=== PATIENT | male | born 1955 | race Caucasian/White ===

== ENCOUNTER 2023-02-12 11:37 | Inpatient (IN) ==
[2023-02-12] MEDS ORDERED: PANTOPRAZOLE BOLUS/DRIP 1 EACH IV STA (12:28)
[2023-02-12] MEDS ORDERED: PANTOprazole 80 MG in DEXTROSE 5% 100 ML IV ONE (12:28)
[2023-02-12 12:42] LABS: Basophils # (auto) 0.05 K/uL (0-0.2); Basophils % (auto) 0.5 %; Eosinophils # (auto) 0.01 K/uL (0-0.50); Eosinophils % (auto) 0.1 %; Hematocrit (blood only) 29.2 % (42.0-52.0); Hemoglobin 10.3 g/dl (14.0-18.0); Immature Granulocytes # (auto) 0.03 K/uL (0.01-0.20); Immature Granulocytes % (auto) 0.3 %; Lymphocytes # (auto) 2.28 K/uL (1.2-3.4); Lymphocytes % (auto) 23.2 %; Mean Corpuscular Hemoglobin 32.7 pg (25.0-34.0); Mean Corpuscular Hgb Conc 35.3 g/dL (32.0-36.0); Mean Corpuscular Volume 92.7 fL (80.0-100.0); Monocytes # (auto) 0.67 K/uL (0.11-0.59); Monocytes % (auto) 6.8 %; Neutrophils % (auto) 69.1 %; Platelet Count 268 K/uL (130-400); RDW Coefficient of Variation 12.1 % (11.5-14.5); RDW Standard Deviation 40.8 fL (36.4-46.3); Red Blood Count 3.15 M/uL (4.70-6.10); White Blood Count 9.84 K/ul (4.8-10.8)
--- NOTE | 2023-02-12 12:50 | Emergency Department Note ---
Impression & Plan Acute GI bleeding, Melena, Weakness, Anemia, Fatigue, Near syncope ED Provider Note Provider: Arturo Ramos MD DATE OF SERVICE: 02/12/2023 CHIEF COMPLAINT: Abdominal pain, melena, dizziness and fogginess HISTORY OF PRESENT ILLNESS: Patient is a 67-year-old gentleman history of hyperlipidemia, hypertension, and recent placement of a right leg stent on Plavix presenting here via ambulance from home. Patient evidently last night began develop some head pain and "fogginess ". States he is little bit near syncopal and dizzy. [place] his breathing was off. Developed some abdominal pain overnight and had significant black melanotic stools today. Denies use of Pepto-Bismol or iron recently. Denies a history of GI bleeds to his knowledge. Denies significant heartburn. Denies real nausea currently. Little bit of pain in the neck and upper shoulders earlier but states not really now. Denies headache. States feels very weak particularly tries to sit up. No syncope or falls. PAST MEDICAL HISTORY: As noted above MEDICATIONS: Reviewed medication list SOCIAL HISTORY: Social alcohol PHYSICAL EXAM: GENERAL: alert and oriented in no acute distress on stretcher fatigued in appea dhiraj, pale Head: normocephalic and atraumatic EYES: No injection, discharge or icterus. PERRL NECK: Trachea midline. Supple not meningitic ENT: Mucous membranes pink and moist. LUNGS: Airway patent. No retractions. Breath sounds clear but with some mild tachypnea HEART: Regular rate and rhythm. No chest wall tenderness ABDOMEN: Soft minimal diffuse abdominal tenderness. Slight guarding. SKIN: Acyanotic, warm, dry, slightly pale EXTREMITIES: Without swelling, tenderness or deformity NEUROLOGICAL: No focal deficits. No aphasia. No facial droop or slurred speech. EK bpm normal sinus rhythm without PVC. No acute ST segment elevation with some lateral T wave changes. QTc 418. CONTINUOUS CARDIAC MONITORING: was ordered and showed a heart rate of 80s-100s bpm in normal sinus rhythm to sinus tachycardia Patient's laboratory studies and imaging reviewed. Differential includes Infection, dehydration, metabolic abnormality, hypo/hyperglycemia, electrolyte disturbance, anemia, hypoxia, cardiac sources, intracerebral event, toxicologic, neurologic, as well as other pathologies. 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 Given Protonix given concern for GI bleed with this. Initial hemoglobin returns at 10 with a normal lactate which is reassuring. He is on Plavix. Some diffuse abdominal tenderness will send for CT of the abdomen pelvis. We will complete a CT of the head given his complaint of some pain in the neck and feeling foggy there. Not having other significant focal deficits generally weak and fatigued. Lower suspicion for CVA. [place] he does not have more anemia. No significant electrolyte abnormalities. BUN elevated again consistent with a possible GI bleed. Creatinine normal. No significant evidence of hepatitis or pancreatitis. Given some IV fluid in addition to the Protonix bolus and drip. CT head without acute abnormality per radiology. CT abdomen pelvis per radiolog y without evidence of bowel obstruction or bowel wall thickening. Normal appendix reported with prostamegaly and no hydronephrosis. Patient's labs and findings are reassuring but still he is feeling quite ill. Again pale and fatigued appearing. His melena is concerning again for GI bleed. Given some IV fluid. Discussed with him and his staying for further evaluation of care and monitoring of his GI bleed. DIAGNOSIS: Melena, GI bleed, weakness, near syncope DISPOSITION: Hospitalist will evaluate Patient was agreeable with this plan. Past Med/Surg History Social History Smoking Status: Current every day smoker Hx Alcohol Use: Yes Hx Substance Use: No Beliefs That Will Affect Care: None Current Living Situation: Spouse Feels Safe at Home: Yes Allergies Allergies Allergy/AdvReac Type Severity Reaction Status Date / Time No Known Allergies Allergy Verified 02/12/23 14:58 Home Meds Home Medications Medication Instructions Recorded Confirmed atorvastatin 80 mg tablet 80 mg PO QAM 02/12/23 02/12/23 cilostazol 100 mg tablet 100 mg PO BID 02/12/23 02/12/23 clopidogrel 75 mg tablet 75 mg PO QAM 02/12/23 02/12/23 diltiazem HCl 180 mg 180 mg PO QAM 02/12/23 02/12/23 capsule,extended release 24 hr ezetimibe 10 mg tablet 10 mg PO QAM 02/12/23 02/12/23 lisinopril 20 1 tab PO QAM 02/12/23 02/12/23 mg-hydrochlorothiazide 12.5 mg tablet Results & Data (ED) Vital Signs Vital Signs - 24 hr 02/12/23 11:47 02/12/23 11:47 02/12/23 11:56 Temperature 36.6 C Temperature Source Oral Pulse Rate 80 Pulse Rate [Right Apical] 80 Pulse Rate from SpO2 Sensor Respiratory Rate 18 18 Respiratory Effort / Characteristics Non-Labored Spontaneous Non-Labored Spontaneous Respiratory Depth Normal Normal Respiratory Pattern Regular Regular Blood Pressure 104/64 Blood Pressure [Right Arm] 104/64 Blood Pressure Mean 77 Blood Pressure Mean [Right Arm] 77 Pulse Oximetry 100 100 100 Oxygen Delivery Method Room Air Room Air Room Air Sepsis Recent Fever Within 48 Hours No Sepsis New/Unexplained Change in Mental Status No Sepsis Action Taken by Nursing No Action Required 02/12/23 12:22 02/12/23 12:00 02/12/23 13:00 Temperature Temperature Source Pulse Rate 107 H 84 96 H Pulse Rate [Right Apical] Pulse Rate from SpO2 Sensor 96 H Respiratory Rate 22 22 Respiratory Effort / Characteristics Respiratory Depth Respiratory Pattern Blood Pressure 103/65 106/61 Blood Pressure [Right Arm] Blood Pressure Mean 77 76 Blood Pressure Mean [Right Arm] Pulse Oximetry 100 100 Oxygen Delivery Method Room Air Room Air Sepsis Recent Fever Within 48 Hours Sepsis New/Unexplained Change in Mental Status Sepsis Action Taken by Nursing 02/12/23 14:30 02/12/23 15:29 Temperature Temperature Source Pulse Rate 91 H 100 H Pulse Rate [Right Apical] Pulse Rate from SpO2 Sensor Respiratory Rate 20 21 Respiratory Effort / Characteristics Respiratory Depth Respiratory Pattern Blood Pressure 126/74 111/74 Blood Pressure [Right Arm] Blood Pressure Mean 91 86 Blood Pressure Mean [Right Arm] Pulse Oximetry 100 100 Oxygen Delivery Method Room Air Sepsis Recent Fever Within 48 Hours Sepsis New/Unexplained Change in Mental Status Sepsis Action Taken by Nursing Laboratory Data 02/12/23 12:03 02/12/23 12:03 Lab Results 02/12/23 02/12/23 02/12/23 Range/Units 12:03 12:03 12:03 WBC 9.84 (4.8-10.8) K/ul RBC 3.15 L (4.70-6.10) M/uL Hgb 10.3 L (14.0-18.0) g/dl Hct 29.2 L (42.0-52.0) % MCV 92.7 (80.0-100.0) fL MCH 32.7 (25.0-34.0) pg MCHC 35.3 (32.0-36.0) g/dL RDW Std Deviation 40.8 (36.4-46.3) fL RDW Coeff of Maximo 12.1 (11.5-14.5) % Plt Count 268 (130-400) K/uL MPV 10.0 (9.4-12.4) fL Immature Gran % (Auto) 0.3 % Neut % (Auto) 69.1 % Lymph % (Auto) 23.2 % [place] % (Auto) 6.8 % Eos % (Auto) 0.1 % Baso % (Auto) 0.5 % Neut # (Auto) 6.80 H (1.40-6.50) K/uL Lymph # (Auto) 2.28 (1.2-3.4) K/uL [place] # (Auto) 0.67 H (0.11-0.59) K/uL Eos # (Auto) 0.01 (0-0.50) K/uL Baso # (Auto) 0.05 (0-0.2) K/uL Immature Gran # (Auto) 0.03 (0.01-0.20) K/uL PT 11.4 (9.0-12.0) Seconds INR 1.0 (0.9-1.1) Sodium 136 (136-145) mmol/L Potassium 4.3 (3.5-5.1) mmol/L Chloride 107 (98-107) mmol/L Carbon Dioxide 23 (21-32) mmol/L Anion Gap 6 (3-11) BUN 55 H (6-23) mg/dl Creatinine 0.73 (0.6-1.4) mg/dl Est Cr Clr Drug Dosing 104.6 ml/min Est GFR ( Amer) 111.2 ml/min Est GFR (Non-Af Amer) 96.0 ml/min BUN/Creatinine Ratio 75.3 H (10-20) Glucose 109 H (70-99(Fasting)) mg/dl Lactate (0.4-2.0) mmol/L Calcium 9.2 (8.6-10.3) mg/dl Total Bilirubin 0.4 (0.2-1.0) mg/dl AST 12 L (13-39) U/L ALT 15 (7-52) U/L Alkaline Phosphatase 73 (34-104) U/L Troponin I High Sens 8.2 (0-20) pg/ml Total Protein 5.8 L (6.0-8.3) gm/dl Albumin 3.9 (3.4-5.0) gm/dl Globulin 1.9 L (2.5-4.0) gm/dl Albumin/Globulin Ratio 2.1 H (0.9-2) Lipase 27 (11-82) U/L Urine Color Urine Appearance (Clear) Urine pH (4.5-7.5) Ur Specific [place] (1.000-1.030) Urine Protein (Negative) Urine Glucose (UA) (Negative) Urine Ketones (Negative) Urine Blood (Negative) Urine Nitrite (Negative) Urine Bilirubin (Negative) Urine Urobilinogen (Negative) Ur Leukocyte Esterase (Negative) POC Stool Occult Blood (Negative) SARS-CoV-2, RNA, NAAT (NEGATIVE) Blood Type Antibody Screen 02/12/23 02/12/23 02/12/23 Range/Units 12:03 12:03 12:07 WBC (4.8-10.8) K/ul RBC (4.70-6.10) M/uL Hgb (14.0-18.0) g/dl Hct (42.0-52.0) % MCV (80.0-100.0) fL MCH (25.0-34.0) pg MCHC (32.0-36.0) g/dL RDW Std Deviation (36.4-46.3) fL RDW Coeff of Maximo (11.5-14.5) % Plt Count (130-400) K/uL MPV (9.4-12.4) fL Immature Gran % (Auto) % Neut % (Auto) % Lymph % (Auto) % [place] % (Auto) % Eos % (Auto) % Baso % (Auto) % Neut # (Auto) (1.40-6.50) K/uL Lymph # (Auto) (1.2-3.4) K/uL [place] # (Auto) (0.11-0.59) K/uL Eos # (Auto) (0-0.50) K/uL Baso # (Auto) (0-0.2) K/uL Immature Gran # (Auto) (0.01-0.20) K/uL PT (9.0-12.0) Seconds INR (0.9-1.1) Sodium (136-145) mmol/L Potassium (3.5-5.1) mmol/L Chloride (98-107) mmol/L Carbon Dioxide (21-32) mmol/L Anion Gap (3-11) BUN (6-23) mg/dl Creatinine (0.6-1.4) mg/dl Est Cr Clr Drug Dosing ml/min Est GFR ( Amer) ml/min Est GFR (Non-Af Amer) ml/min BUN/Creatinine Ratio (10-20) Glucose (70-99(Fasting)) mg/dl Lactate 1.5 (0.4-2.0) mmol/L Calcium (8.6-10.3) mg/dl Total Bilirubin (0.2-1.0) mg/dl AST (13-39) U/L ALT (7-52) U/L Alkaline Phosphatase (34-104) U/L Troponin I High Sens (0-20) pg/ml Total Protein (6.0-8.3) gm/dl Albumin (3.4-5.0) gm/dl Globulin (2.5-4.0) gm/dl Albumin/Globulin Ratio (0.9-2) Lipase (11-82) U/L Urine Color Urine Appearance (Clear) Urine pH (4.5-7.5) Ur Specific [place] (1.000-1.030) Urine Protein (Negative) Urine Glucose (UA) (Negative) Urine Ketones (Negative) Urine Blood (Negative) Urine Nitrite (Negative) Urine Bilirubin (Negative) Urine Urobilinogen (Negative) Ur Leukocyte Esterase (Negative) POC Stool Occult Blood (Negative) SARS-CoV-2, RNA, NAAT NEGATIVE (NEGATIVE) Blood Type O Positive Antibody Screen NEGATIVE 02/12/23 02/12/23 Range/Units 12:28 15:29 WBC (4.8-10.8) K/ul RBC (4.70-6.10) M/uL Hgb (14.0-18.0) g/dl Hct (42.0-52.0) % MCV (80.0-100.0) fL MCH (25.0-34.0) pg MCHC (32.0-36.0) g/dL RDW Std Deviation (36.4-46.3) fL RDW Coeff of Maximo (11.5-14.5) % Plt Count (130-400) K/uL MPV (9.4-12.4) fL Immature Gran % (Auto) % Neut % (Auto) % Lymph % (Auto) % [place] % (Auto) % Eos % (Auto) % Baso % (Auto) % Neut # (Auto) (1.40-6.50) K/uL Lymph # (Auto) (1.2-3.4) K/uL [place] # (Auto) (0.11-0.59) K/uL Eos # (Auto) (0-0.50) K/uL Baso # (Auto) (0-0.2) K/uL Immature Gran # (Auto) (0.01-0.20) K/uL PT (9.0-12.0) Seconds INR (0.9-1.1) Sodium (136-145) mmol/L Potassium (3.5-5.1) mmol/L Chloride (98-107) mmol/L Carbon Dioxide (21-32) mmol/L Anion Gap (3-11) BUN (6-23) mg/dl Creatinine (0.6-1.4) mg/dl Est Cr Clr Drug Dosing ml/min Est GFR ( Amer) ml/min Est GFR (Non-Af Amer) ml/min BUN/Creatinine Ratio (10-20) Glucose (70-99(Fasting)) mg/dl Lactate (0.4-2.0) mmol/L Calcium (8.6-10.3) mg/dl Total Bilirubin (0.2-1.0) mg/dl AST (13-39) U/L ALT (7-52) U/L Alkaline Phosphatase (34-104) U/L Troponin I High Sens (0-20) pg/ml Total Protein (6.0-8.3) gm/dl Albumin (3.4-5.0) gm/dl Globulin (2.5-4.0) gm/dl Albumin/Globulin Ratio (0.9-2) Lipase (11-82) U/L Urine Color Yellow Urine Appearance Clear (Clear) Urine pH 5.5 (4.5-7.5) Ur Specific [place] > 1.045 H (1.000-1.030) Urine Protein Negative (Negative) Urine Glucose (UA) Negative (Negative) Urine Ketones Negative (Negative) Urine Blood Negative (Negative) Urine Nitrite Negative (Negative) Urine Bilirubin Negative (Negative) Urine Urobilinogen Negative (Negative) Ur Leukocyte Esterase Negative (Negative) POC Stool Occult Blood Positive A (Negative) SARS-CoV-2, RNA, NAAT (NEGATIVE) Blood Type Antibody Screen Administered Medications Pantoprazole Sodium 40 mg/ (Dextrose) 100 mls @ 20 mls/hr IV Q5H MULU Stop: 03/14/23 12:44 Last Admin: 02/12/23 13:01 Dose: 8 mg/hr, 20 mls/hr Documented By: DINAH Discontinued Medications Pantoprazole Sodium 80 mg/ (Dextrose) 120 mls @ 400 mls/hr IV NOW ONE Stop: 02/12/23 12:45 Last Infusion: 02/12/23 13:11 Dose: 0 mls/hr Documented By: Admin: 02/12/23 12:51 Dose: 400 mls/hr Documented By: DINAH Sodium Chloride (Nss 1000ml) 1,000 mls @ 999 mls/hr IV .Q1H1M ONE Stop: 02/12/23 15:04 Last Infusion: 02/12/23 15:26 Dose: 0 mls/hr Documented By: Admin: 02/12/23 14:34 Dose: 999 mls/hr Documented By: DINAH Ioversol (Optiray 320 100ml) 88 ml IV ONCE ONE Stop: 02/12/23 14:06 Last Admin: 02/12/23 13:51 Dose: 88 ml Documented By: GABRIELE Imaging Data Radiologist's Impression: Abdomen/Pelvis CT 02/12/23 12:[address] WITH IV CONTRAST CT DOSE: 1694.03 mGy.cm HISTORY: Nausea. Diarrhea. diffuse pain, melena TECHNIQUE: Multiaxial CT images of the abdomen and pelvis were performed following the use of intravenous contrast. A dose lowering technique was utilized adhering to the principles of ALARA. COMPARISON STUDY: Outside hospital chest CT 09/02/2016. FINDINGS: A few subcentimeter nodules at the lung bases remain stable and are therefore considered to be benign given the greater than 2 year stability. No pneumoperitoneum. No pneumatosis. L4-5 posterior decompression and fusion with pedicle screws and rods. Severe coronary artery calcifications are noted. The g allbladder, spleen, adrenal glands, and pancreas are unremarkable. There is a 1.2 cm cyst within the left hepatic dome. There is a 7 mm hypodense lesion within the right kidney which is technically too small to catheterize but favors a cyst. The left kidney enhances normally. No hydronephrosis. The main portal vein is patent. Moderate to severe calcified plaque within the normal caliber abdominal aorta. No retroperitoneal lymphadenopathy. No pelvic lymphadenopathy or pelvic free fluid. The bladder is unremarkable. The prostate gland is mildly enlarged. No bowel wall thickening or obstruction. Normal appendix. IMPRESSION: 1. No bowel wall thickening or obstruction. 2. Normal appendix. 3. No hydronephrosis. 4. Prostatomegaly. 5. Additional findings as described above. ACT 112: Negative or not required by law. Electronically signed by: Steve Gloria M.D. 02/12/2023 2:[address] 02/12/23 12:28 CT head/brain wo con CLINICAL HISTORY: 67 years-old Male with weak/dizzy, headache. Acute headache with dizziness and weakness TECHNIQUE: Multiple axial CT images of the head were obtained without contrast. A dose lowering technique was utilized adhering to the principles of ALARA. COMPARISON: None. FINDINGS: No acute intracranial hemorrhage, midline shift, intracranial mass, hydrocephalus, territorial ischemia or abnormal extra-axial collection. Involutional changes with chronic microvascular ischemic disease. Cerebral vascular calcifications. The calvarium is intact. The paranasal sinuses, mastoid air cells, and middle ear cavities are clear. IMPRESSION: No acute intracranial abnormality. ACT 112: Negative or not required by law. The above report was generated using voice recognition software. It may contain grammatical, syntax or spelling errors. Electronically signed by: Nav Grossman M.D. 02/12/2023 2:09 PM Chest X-Ray 02/12/23 14:04 XR chest 1V portable HISTORY: Shortness of breath. COMPARISON: Chest 08/24/2016. FINDINGS: No pneumothorax. No pleural effusions. There slight elevation of the right hemidiaphragm, unchanged. No focal lung consolidations to suggest a pneumonia. No evidence for pulmonary edema. Cervical spinal fusion hardware is noted. The cardiac silhouette is top normal in size. There are mild degenerative changes within the shoulders. IMPRESSION: No acute process. ACT 112: Negative or not required by law. Electronically signed by: Steve Gloria M.D. 02/12/2023 3:19 PM Discharge Plan Visit Data Chief Complaint: Abdominal Pain Stated Complaint: DIZZINESS, AB PAIN, DIARRHEA ED Provider: Arturo Ramos Discharge Problem: Acute GI bleeding, Melena, Weakness, Anemia, Fatigue, Near syncope Patient Disposition: Being Evaluated by Hospitalist Forms Stand Alone Forms: [facility] Prescriptions Prescriptions: No Action cilostazol 100 mg tablet 100 mg PO BID atorvastatin 80 mg tablet 80 mg PO QAM lisinopril-hydrochlorothiazide 20-12.5 mg tablet 1 tab PO QAM diltiazem HCl 180 mg capsule,extended release 24hr 180 mg PO QAM clopidogrel 75 mg tablet 75 mg PO QAM ezetimibe 10 mg tablet 10 mg PO QAM Referrals Referrals: Anastacio Shabazz DO [Primary Care Provider] -
[2023-02-12 12:52] LABS: Albumin Level 3.9 gm/dl (3.4-5.0); Bilirubin,Total 0.4 mg/dl (0.2-1.0); Calcium 9.2 mg/dl (8.6-10.3); Potassium 4.3 mmol/L (3.5-5.1)
[2023-02-12 12:58] LABS: Albumin Globulin Ratio 2.1 (0.9-2); BUN Creatinine Ratio 75.3 (10-20); Creatinine Clr Calc Pharmacy 104.6 ml/min; Est GFR (African American) 111.2 ml/min; Globulin 1.9 gm/dl (2.5-4.0); Prothrombin Time 11.4 Seconds (9.0-12.0); Total Protein 5.8 gm/dl (6.0-8.3)
[2023-02-12] MEDS: PANTOprazole 40 MG in DEXTROSE 5% 100 ML IV SCH ×3 (13:01→19:28)
[2023-02-12 13:03] LABS: Troponin I High Sensitivity 8.2 pg/ml (0-20)
[2023-02-12] MEDS ORDERED: SODIUM CHLORIDE 0.9% 1000ML 1,000 ML IV ONE (14:04)
[2023-02-12] MEDS ORDERED: OPTIRAY 320 100ml IV ONE (14:05)
--- NOTE | 2023-02-12 14:11 | CT Scan Report ---
CT head/brain wo con CLINICAL HISTORY: 67 years-old Male with weak/dizzy, headache. Acute headache with dizziness and wea kness TECHNIQUE: Multiple axial CT images of the head were obtained without contrast. A dose lowering tech nique was utilized adhering to the principles of ALARA. COMPARISON: None. FINDINGS: No acute intracranial hemorrhage, midline shift, intracranial mass, hydrocephalus, territorial ischem ia or abnormal extra-axial collection. Involutional changes with chronic microvascular ischemic disea se. Cerebral vascular calcifications. The calvarium is intact. The paranasal sinuses, mastoid air cells, and middle ear cavities are clear . IMPRESSION: No acute intracranial abnormality. ACT 112: Negative or not required by law. The above report was generated using voice recognition software. It may contain grammatical, syntax o r spelling errors. Electronically signed by: Nav Grossman M.D. 02/12/2023 2:09 PM
--- NOTE | 2023-02-12 14:22 | CT Scan Report ---
ABDOMEN AND PELVIS CT WITH IV CONTRAST CT DOSE: 1694.03 mGy.cm HISTORY: Nausea. Diarrhea. diffuse pain, melena TECHNIQUE: Multiaxial CT images of the abdomen and pelvis were performed following the use of intrave nous contrast. A dose lowering technique was utilized adhering to the principles of ALARA. COMPARISON STUDY: Outside hospital chest CT 09/02/2016. FINDINGS: A few subcentimeter nodules at the lung bases remain stable and are therefore considered to be benign given the greater than 2 year stability. No pneumoperitoneum. No pneumatosis. L4-5 posteri or decompression and fusion with pedicle screws and rods. Severe coronary artery calcifications are n oted. The gallbladder, spleen, adrenal glands, and pancreas are unremarkable. There is a 1.2 cm cyst within the left hepatic dome. There is a 7 mm hypodense lesion within the right kidney which is techn ically too small to catheterize but favors a cyst. The left kidney enhances normally. No hydronephros is. The main portal vein is patent. Moderate to severe calcified plaque within the normal caliber abd ominal aorta. No retroperitoneal lymphadenopathy. No pelvic lymphadenopathy or pelvic free fluid. The bladder is unremarkable. The prostate gland is mildly enlarged. No bowel wall thickening or obstruct ion. Normal appendix. IMPRESSION: 1. No bowel wall thickening or obstruction. 2. Normal appendix. 3. No hydronephrosis. 4. Prostatomegaly. 5. Additional findings as described above. ACT 112: Negative or not required by law. Electronically signed by: Steve Gloria M.D. 02/12/2023 2:21 PM
--- NOTE | 2023-02-12 15:20 | XRay Report ---
XR chest 1V portable HISTORY: Shortness of breath. COMPARISON: Chest 08/24/2016. FINDINGS: No pneumothorax. No pleural effusions. There slight elevation of the right hemidiaphragm, u nchanged. No focal lung consolidations to suggest a pneumonia. No evidence for pulmonary edema. Cervi [place] spinal fusion hardware is noted. The cardiac silhouette is top normal in size. There are mild deg enerative changes within the shoulders. IMPRESSION: No acute process. ACT 112: Negative or not required by law. Electronically signed by: Steve Gloria M.D. 02/12/2023 3:19 PM
--- NOTE | 2023-02-12 15:37 | Electrocardiogram Report ---
Test Reason : Blood Pressure : / mmHG Vent. Rate : 081 BPM Atrial Rate : 081 BPM P-R Int : 196 ms QRS Dur : 084 ms QT Int : 360 ms P-R-T Axes : 077 040 110 degrees QTc Int : 418 ms Normal sinus rhythm T wave abnormality, consider lateral ischemia Abnormal ECG When compared with ECG of 23-OCT-2015 11:05, Inverted T waves have replaced nonspecific T wave abnormality in Lateral leads Confirmed by [place] ([id number]) on 02/12/2023 3:37:25 PM Referred By: REFERRED SELF Confirmed By:Femi Javier
[2023-02-12 15:46] LABS: Appearance Urine Clear (Clear); Bilirubin Urine Negative (Negative); Blood Urine Negative (Negative); Color Urine Yellow; Glucose Urine UA Negative (Negative); Ketones Urine Negative (Negative); Leukocyte Esterase Urine Negative (Negative); Nitrite Urine Negative (Negative); Protein Urine Negative (Negative); Specific Gravity Urine > 1.045 (1.000-1.030); Urobilinogen Urine Negative (Negative); pH Urine 5.5 (4.5-7.5)
--- NOTE | 2023-02-12 16:02 | History & Physical Report ---
Date of Service February 12, 2023 Assessment & Plan (1) GI bleed: Plan: Patient is 67 y/o M with PMH CAD, PVD s/p stent RLE, HTN, dyslipidemia, COPD, tobacco use presented to ER with c/o melena today, exertional shortness of breath, dizziness x1 day. In ER afebrile, P: 80-100, BP 103/65, 100% on room air. H/H: 10.3/, BUN: 55. Hgb was 15 and 11/18/2020 In ER started on IV PPI No further bowel movements during ER course Upper GI bleed, suspect possible gastric ulcer Continue IV PPI Clears for now N.p.o. midnight Type and cross and hold. Monitor H&H. Transfuse PRBC if needed Blood consent was obtained from the patient as delegated by Dr. Camacho. Risks and benefits were explained. All questions were answered, and the patient was offered the opportunity to discuss with attending physician and declined. Hold aspirin, Plavix GI consult CBC, BMP in a.m. (2) Peripheral vascular disease: Plan: 01/13/23:Fem/pop artery revascularization with stent and angioplasty. Hold aspirin, Plavix Continue Pletal, atorvastatin (3) HTN (hypertension): Plan: Hold lisinopril, HCTZ, diltiazem with suspected current GI bleed and current SBP's in the low 100s (4) Dyslipidemia: Plan: Continue atorvastatin, Zetia (5) COPD (chronic obstructive pulmonary disease): Plan: Not on medication No acute exacerbation CXR: No acute infiltrate (6) Tobacco use: Plan: Smoking cessation encouraged Nicotine patch DVT Prophylaxis SCDs Full ode as per discussion with pt Follows with Dr Shabazz for routine care Pt was seen and care coordinated with Dr Camacho. See addendum I spent a total of 80 minutes reviewing notes, outpatient records, labs, medication, coordinating, documenting and providing care for this patient excluding time spent in the performance of separately billed services. History of Present Illness Chief Complaint: Melena Primary Care Provider: Anastacio Shabazz DO Patient is 67 y/o M with PMH CAD, PVD s/p stent RLE, HTN, dyslipidemia, COPD, tobacco use presented to ER with c/o melena today. Patient states yesterday was having lightheadedness, worse with standing. Also experiencing exertional SOB for the past day. Denies syncope. Patient states this morning had several episodes of loose black stools. Also having epigastric abdominal discomfort. Patient states has been having intermittent epigastric discomfort however seems worse the past 1 to 2 days. He states that he uses 800mg ibuprofen 4 times a week. Is also on aspirin 81mg, Plavix, Pletal. Drinks 2 beers once week. Reports has been under a lot of stress recently. History 01/13/23: Fem/pop artery revascularization with stent and angioplasty. Denies fever/chills, diaphoresis, N/V, hematochezia, OLMOS, vision changes, chest pain, orthopnea, palpitations, cough, sore throat, rhinorrhea, paresthesias, extremity weakness, extremity edema, rashes, urinary symptoms. Allergies Allergy/AdvReac Type Severity Reaction Status Date / Time No Known Allergies Allergy Verified 02/12/23 14:58 Home Medications Medication Instructions Recorded Confirmed Type aspirin 81 mg tablet 81 mg PO DAILY 02/12/23 02/12/23 History atorvastatin 80 mg tablet 80 mg PO QAM 02/12/23 02/12/23 History cilostazol 100 mg tablet 100 mg PO BID 02/12/23 02/12/23 History clopidogrel 75 mg tablet 75 mg PO QAM 02/12/23 02/12/23 History diltiazem HCl 180 mg 180 mg PO QAM 02/12/23 02/12/23 History capsule,extended release 24 hr ezetimibe 10 mg tablet 10 mg PO QAM 02/12/23 02/12/23 History lisinopril 20 1 tab PO COUNT INCLUDES THE [facility] 02/12/23 02/12/23 History mg-hydrochlorothiazide 12.5 mg tablet Past Med/Surg History Medical History COPD (chronic obstructive pulmonary disease) Dyslipidemia HTN (hypertension) Peripheral vascular disease Tobacco use Surgical History History of revascularization procedure of lower extremity 01/13/2023 fem/pop artery revascularization with stent angioplasty. By Dr. Miki Garcia at [facility] [place] History of spinal fusion Family History Other Heart disease Stroke Social History (Reviewed 02/12/23 @ 20:01 by MAGGY Garcia Smoking Status: Current every day smoker Cigarettes Per Day: 20; Hx Alcohol Use: Yes Hx Substance Use: No Preferred Language: Irish Radiographer Cardiac Catheterization Required: No Beliefs That Will Affect Care: None Current Living Situation: Spouse and Family Current Living Situation Comment: and daughter Feels Safe at Home: No Safety Concerns: Feels Safe At This Time Assistive Devices: Glasses Review of Systems Review of Systems: All systems reviewed & are unremarkable except as noted in HPI & below Physical Exam Physical Exam: General: no distress, WDWN Head: normocephalic, atraumatic Eyes: conjunctiva non-injected, anicteric ENT: normal inspection external ears, nose, mucous membranes moist Neck: supple, trachea midline Lungs: clear, no respiratory distress, no wheezing/rhonchi/rales CV: RRR, no murmur, no pretibial edema Abd: normal BS, soft, slight epigastric tenderness to palpation without guarding Ext: no cyanosis, no calf tenderness Neuro: A&O x 3, no focal deficits noted, normal affect Skin: pale, warm, dry Results & Data Results & Data Vital Signs (Past 12 Hours) Vital Signs Temp Pulse Pulse Resp BP BP Pulse Ox 02/12/23 15:29 100 H 21 111/74 100 02/12/23 14:30 91 H 20 126/74 100 02/12/23 13:00 96 H 22 106/61 100 02/12/23 12:00 84 22 103/65 100 02/12/23 12:22 107 H 02/12/23 11:56 100 02/12/23 11:47 80 18 104/64 100 02/12/23 11:47 36.6 C 80 18 104/64 100 O2 Del Method 02/12/23 15:29 Room Air 02/12/23 14:30 02/12/23 13:00 Room Air 02/12/23 12:00 Room Air 02/12/23 12:22 02/12/23 11:56 Room Air 02/12/23 11:47 Room Air 02/12/23 11:47 Room Air Laboratory Results Short CBC 02/12/23 02/12/23 Range/Units 12:03 19:12 WBC 9.84 (4.8-10.8) K/ul Hgb 10.3 L 8.6 L (14.0-18.0) g/dl Hct 29.2 L 24.4 L (42.0-52.0) % Plt Count 268 (130-400) K/uL BMP 02/12/23 12:03 Sodium 136 Potassium 4.3 Chloride 107 Carbon Dioxide 23 BUN 55 H Creatinine 0.73 Glucose 109 H Calcium 9.2 Liver Function 02/12/23 Range/Units 12:03 Total Bilirubin 0.4 (0.2-1.0) mg/dl AST 12 L (13-39) U/L ALT 15 (7-52) U/L Alkaline Phosphatase 73 (34-104) U/L Albumin 3.9 (3.4-5.0) gm/dl Urine 02/12/23 Range/Units 15:29 Urine Color Yellow Urine Appearance Clear (Clear) Urine pH 5.5 (4.5-7.5) Ur Specific [place] > 1.045 H (1.000-1.030) Urine Protein Negative (Negative) Urine Glucose (UA) Negative (Negative) Diagnostic Findings Abdomen/Pelvis CT 02/12/23 12:[address] WITH IV CONTRAST CT DOSE: 1694.03 mGy.cm HISTORY: Nausea. Diarrhea. diffuse pain, melena TECHNIQUE: Multiaxial CT images of the abdomen and pelvis were performed following the use of intravenous contrast. A dose lowering technique was utilized adhering to the principles of ALARA. COMPARISON STUDY: Outside hospital chest CT 09/02/2016. FINDINGS: A few subcentimeter nodules at the lung bases remain stable and are therefore considered to be benign given the greater than 2 year stability. No pneumoperitoneum. No pneumatosis. L4-5 posterior decompression and fusion with pedicle screws and rods. Severe coronary artery calcifications are noted. The gallbladder, spleen, adrenal glands, and pancreas are unremarkable. There is a 1.2 cm cyst within the left hepatic dome. There is a 7 mm hypodense lesion within the right kidney which is technically too small to catheterize but favors a cyst. The left kidney enhances normally. No hydronephrosis. The main portal vein is patent. Moderate to severe calcified plaque within the normal caliber abdominal aorta. No retroperitoneal lymphadenopathy. No pelvic lymphadenopathy or pelvic free fluid. The bladder is unremarkable. The prostate gland is mildly enlarged. No bowel wall thickening or obstruction. Normal appendix. IMPRESSION: 1. No bowel wall thickening or obstruction. 2. Normal appendix. 3. No hydronephrosis. 4. Prostatomegaly. 5. Additional findings as described above. ACT 112: Negative or not required by law. Electronically signed by: Steve Gloria M.D. 02/12/2023 2:[address] 02/12/23 12:28 CT head/brain wo con CLINICAL HISTORY: 67 years-old Male with weak/dizzy, headache. Acute headache with dizziness and weakness TECHNIQUE: Multiple axial CT images of the head were obtained without contrast. A dose lowering technique was utilized adhering to the principles of ALARA. COMPARISON: None. FINDINGS: No acute intracranial hemorrhage, midline shift, intracranial mass, hydrocephalus, territorial ischemia or abnormal extra-axial collection. Involutional changes with chronic microvascular ischemic disease. Cerebral vascular calcifications. The calvarium is intact. The paranasal sinuses, mastoid air cells, and middle ear cavities are clear. IMPRESSION: No acute intracranial abnormality. ACT 112: Negative or not required by law. The above report was generated using voice recognition software. It may contain grammatical, syntax or spelling errors. Electronically signed by: Nav Grossman M.D. 02/12/2023 2:09 PM Chest X-Ray 02/12/23 14:04 XR chest 1V portable HISTORY: Shortness of breath. COMPARISON: Chest 08/24/2016. FINDINGS: No pneumothorax. No pleural effusions. There slight elevation of the right hemidiaphragm, unchanged. No focal lung consolidations to suggest a pneumonia. No evidence for pulmonary edema. Cervical spinal fusion hardware is noted. The cardiac silhouette is top normal in size. There are mild degenerative changes within the shoulders. IMPRESSION: No acute process. ACT 112: Negative or not required by law. Electronically signed by: Steve Gloria M.D. 02/12/2023 3:19 PM Supervising Physician Co-Signing Physician Notes Patient seen and examined independently. Discussed with above provider. Patient is 67-year-old male with history of peripheral vascular disease with a stent in right lower extremity presents with melena. Taking aspirin, Plavix and as needed ibuprofen. Started on PPI drip. Currently holding aspirin and Plavix. Resume after okay with GI. N.p.o. from midnight for possible endoscopy in a.m. Hold antihypertensives.
[2023-02-12] MEDS ORDERED: ONDANSETRON INJ 2 MG/ML 2 ML VIAL IV PRN (18:51)
[2023-02-12] MEDS ORDERED: SODIUM CHLORIDE 0.9% 1000ML 1,000 ML IV SCH (18:51)
[2023-02-12] MEDS ORDERED: ACETAMINOPHEN 325 MG TAB PO PRN (18:51)
[2023-02-12] MEDS ORDERED: SODIUM CHLORIDE 0.9% 250 ML IV PRN (18:51)
[2023-02-12 19:33] LABS: Hematocrit (blood only) 24.4 % (42.0-52.0); Hemoglobin 8.6 g/dl (14.0-18.0)
[2023-02-12] MEDS ORDERED: MoRPHine SULFATE 2 MG/ML CARP IV PRN (19:52)
[2023-02-12] MEDS: NICOTINE 21 MG/24 HR TDSY TD SCH (20:47)
[2023-02-12] MEDS ORDERED: cilostazoL 100 MG TAB PO SCH (21:00)
[2023-02-12 23:17] LABS: Hematocrit (blood only) 22.9 % (42.0-52.0); Hemoglobin 8.1 g/dl (14.0-18.0)
[2023-02-13] MEDS: PANTOprazole 40 MG in DEXTROSE 5% 100 ML IV SCH ×5 (00:05→20:43)
[2023-02-13 08:26] LABS: Hematocrit (blood only) 21.8 % (42.0-52.0); Hemoglobin 7.7 g/dl (14.0-18.0); Mean Corpuscular Hemoglobin 32.6 pg (25.0-34.0); Mean Corpuscular Hgb Conc 35.3 g/dL (32.0-36.0); Mean Corpuscular Volume 92.4 fL (80.0-100.0); Platelet Count 206 K/uL (130-400); RDW Coefficient of Variation 12.2 % (11.5-14.5); RDW Standard Deviation 40.9 fL (36.4-46.3); Red Blood Count 2.36 M/uL (4.70-6.10); White Blood Count 6.54 K/ul (4.8-10.8)
[2023-02-13 08:44] LABS: BUN Creatinine Ratio 44.8 (10-20); Creatinine Clr Calc Pharmacy 131.6 ml/min; Est GFR (African American) 122.3 ml/min; Est GFR (Non-African American) 105.5 ml/min
[2023-02-13] MEDS: NICOTINE 21 MG/24 HR TDSY TD SCH (09:23)
[2023-02-13] MEDS: EZETIMIBE 10 MG TABLET PO SCH (09:24)
[2023-02-13] MEDS: ATORVASTATIN 40 MG TAB PO SCH (09:24)
[2023-02-13] MEDS ORDERED: SODIUM CHLORIDE 0.9% 250 ML IV PRN (12:09)
--- NOTE | 2023-02-13 12:16 | Hospitalist Progress Note ---
Date of Service February 13, 2023 Assessment & Plan (1) Acute upper GI bleed: Plan: Patient is 67 y/o M with PMH CAD, PVD s/p stent RLE, HTN, dyslipidemia, COPD, tobacco use presented to ER with c/o melena today, exertional shortness of breath, dizziness x1 day. Suspected UGI bleed. In ER afebrile, P: 80-100, BP 103/65, 100% on room air. H/H: 10.3/, BUN: 55. Hgb was 15 and 11/18/2020 Hemoglobin trending down 10.3->8.6->8.1->7.7. CT abdomen pelvis unremarkable Will transfuse 1 dose of PRBC and continue to trend hemoglobin and transfuse as indicated Continue IV fluids Continue IV PPI drip. Continue to hold aspirin/Plavix No further bowel movements since admission. Seen by GI-continue n.p.o. status, plan for EGD on Wednesday, however if hemoglobin drops or has recurrent hypotension, plan for EGD tomorrow a.m. CT A/P 1. No bowel wall thickening or obstruction. 2. Normal appendix. 3. No hydronephrosis. 4. Prostatomegaly. (2) Symptomatic anemia: Plan: As above (3) Peripheral vascular disease: Plan: 01/13/23:Fem/pop artery revascularization with stent and angioplasty. Hold aspirin, Plavix Continue Pletal, atorvastatin (4) HTN (hypertension): Plan: Hold lisinopril, HCTZ, diltiazem with suspected current GI bleed and low BP. We will resume as indicated (5) Dyslipidemia: Plan: Continue atorvastatin, Zetia (6) COPD (chronic obstructive pulmonary disease): Plan: Not on medication No acute exacerbation CXR: No acute infiltrate (7) Tobacco use: Plan: Smoking cessation encouraged. States he is planning to quit smoking. Nicotine patch DVT Prophylaxis- SCDs. Chemoprophylaxis contraindicated in setting of GI bleed requiring transfusion Disposition- trending H&H, receiving blood transfusion and IVF. Plan for EGD per GI Admission and Anticipated Discharge Date Admission Date: February 12, 2023 Subjective Patient was seen and examined at bedside. He feels lightheaded even with changing positions in bed. He has not had a bowel movement since admission. Some epigastric pain. No nausea or vomiting. No fever chills or shortness of breath. Review of Systems Review of Systems: All systems reviewed & are unremarkable except as noted in Subjective Physical Exam Physical Exam: General: Lying comfortably in bed, not in distress, on room air HEENT: EOMI, JOSE DE JESUS, MMM Chest: Fair breath sounds bilaterally with intermittent scattered wheezes CVS: Regular rate and rhythm, normal heart sounds, no murmur Abdomen: Soft, mild tenderness in epigastrium, not distended, normal bowel sounds Neuro: Awake, alert, oriented, conversing well, non focal Extremities: No cyanosis, clubbing or edema Results & Data Results & Data Vital Signs (Past 12 Hours) Vital Signs Temp Pulse Pulse Pulse Resp BP Pulse Ox 02/13/23 07:00 84 02/13/23 08:16 36.8 C 85 18 111/67 97 02/13/23 02:32 37.1 C 92 H 18 95/64 L 99 O2 Del Method 02/13/23 07:00 02/13/23 08:16 Room Air 02/13/23 02:32 Room Air Laboratory Results Short CBC 02/12/23 02/12/23 02/13/23 Range/Units 19:12 23:04 07:34 WBC 6.54 (4.8-10.8) K/ul Hgb 8.6 L 8.1 L 7.7 L (14.0-18.0) g/dl Hct 24.4 L 22.9 L 21.8 L (42.0-52.0) % Plt Count 206 (130-400) K/uL BMP 02/13/23 07:34 Sodium 137 Potassium 4.0 Chloride 111 H Carbon Dioxide 23 BUN 26 H D Creatinine 0.58 L Glucose 91 Calcium 8.0 L Urine 02/12/23 Range/Units 15:29 Urine Color Yellow Urine Appearance Clear (Clear) Urine pH 5.5 (4.5-7.5) Ur Specific [place] > 1.045 H (1.000-1.030) Urine Protein Negative (Negative) Urine Glucose (UA) Negative (Negative) Medications Administered Current Inpatient Medications Acetaminophen (Acetaminophen 325 Mg Tab) 650 mg PO Q4H PRN PRN Reason: Pain or Fever Stop: 03/14/23 18:50 Atorvastatin Calcium (Atorvastatin 40 Mg Tab) 80 mg PO QAM [facility] Stop: 03/15/23 08:59 Last Admin: 02/13/23 09:24 Dose: 80 mg Ezetimibe (Ezetimibe 10 Mg Tablet) 10 mg PO QAM [facility] Stop: 03/15/23 08:59 Last Admin: 02/13/23 09:24 Dose: 10 mg Pantoprazole Sodium 40 mg/ (Dextrose) 100 mls @ 20 mls/hr IV Q5H [facility] Stop: 03/14/23 18:59 Last Admin: 02/13/23 09:24 Dose: 8 mg/hr, 20 mls/hr Sodium Chloride (Nss) 250 mls @ 15 mls/hr IV .[id number] PRN PRN Reason: For Transfusion Duration Stop: 02/13/23 22:10 Sodium Chloride (Nss 1000ml) 1,000 mls @ 80 mls/hr IV .[id number] [facility] Stop: 02/14/23 12:14 Last Infusion: 02/13/23 13:53 Dose: 0 mls/hr Miscellaneous (Remove Nicoderm Patch) 1 each N/A DAILY@0859 [facility] Stop: 03/15/23 08:58 Last Admin: 02/13/23 09:23 Dose: 1 each Morphine Sulfate (Morphine Sulfate 2 Mg/Ml Carp) 2 mg IV Q4H PRN PRN Reason: Pain Stop: 02/26/23 19:51 Nicotine (Nicotine 21 Mg/24 Hr Tdsy) 21 mg TD [facility] Stop: 03/14/23 18:50 Last Admin: 02/13/23 09:23 Dose: 21 mg Ondansetron HCl (Ondansetron Inj 2 Mg/Ml 2 Ml Vial) 4 mg IV Q6H PRN PRN Reason: Nausea Stop: 03/14/23 18:50
--- NOTE | 2023-02-13 13:46 | Consultation ---
Date of Consultation February 13, 2023 History of Present Illness Reason for Consultation: UGIB Attending Physician: Meng Kuo MD History of Present Illness 67 yo M with PMH sig CAD on ASA/Plavix, also h/o regular ibuprofen use, now reports 2 month h/o epigastric pain, now presents to hospital with complaint of pre-syncopal episode and dark stool on night. On admit yesterday, his systolic was 100s from baseline HTN; his hgb was 10 from recent normal value; and his BUN was 55. CT with IV con only was unremarkable; stomach was normal. Overnight, his hgb fell to 7.7. He is now normotensive, with decreased BUN, and he has not passed any BM's for 24 hours. He is currently ordered 2 units 1 PRBC, of 2 ordered. PE: Comfortable, pale CV: RRR Resp: CTA Abd: soft Rectal: no stool A/P: UGIB, likely NSAID induced PUD - Cont PPI gtt, NPO with replacement fluids. Follow hgb BID and transfuse to target 7-8. His lack of stool output, recovery of BP, and falling BUN are reassuring -- will plan supportive care over weekend, and EGD on Wednesday. If hgb falls or has recurrent hypotension, will plan EGD tomorrow am. Allergies Allergy/AdvReac Type Severity Reaction Status Date / Time No Known Allergies Allergy Verified 02/12/23 14:58 Home Medications Medication Instructions Recorded Confirmed Type aspirin 81 mg tablet 81 mg PO DAILY 02/12/23 02/12/23 History atorvastatin 80 mg tablet 80 mg PO QAM 02/12/23 02/12/23 History cilostazol 100 mg tablet 100 mg PO BID 02/12/23 02/12/23 History clopidogrel 75 mg tablet 75 mg PO QAM 02/12/23 02/12/23 History diltiazem HCl 180 mg 180 mg PO QAM 02/12/23 02/12/23 History capsule,extended release 24 hr ezetimibe 10 mg tablet 10 mg PO QAM 02/12/23 02/12/23 History lisinopril 20 1 tab PO QAM 02/12/23 02/12/23 History mg-hydrochlorothiazide 12.5 mg tablet Patient History Medical History COPD (chronic obstructive pulmonary disease) Dyslipidemia HTN (hypertension) Peripheral vascular disease Tobacco use Surgical History History of revascularization procedure of lower extremity 01/13/2023 fem/pop artery revascularization with stent angioplasty. By Dr. Miki Garcia at [facility] [place] History of spinal fusion Family History Other Heart disease Stroke Social History Smoking Status: Current every day smoker Cigarettes Per Day: 20; Hx Alcohol Use: Yes Hx Substance Use: No Preferred Language: Albanian Chart Calculator Required: No Beliefs That Will Affect Care: None Current Living Situation: Spouse and Family Current Living Situation Comment: and daughter Feels Safe at Home: No Safety Concerns: Feels Safe At This Time Assistive Devices: Glasses Results & Data Vital Signs (Past 12 Hours) Vital Signs Temp Pulse Pulse Pulse Resp BP BP 02/13/23 13:23 36.8 C 85 18 157/79 H 02/13/23 13:10 36.8 C 89 18 124/80 02/13/23 07:00 84 02/13/23 08:16 36.8 C 85 18 111/67 02/13/23 02:32 37.1 C 92 H 18 95/64 L Pulse Ox O2 Del Method 02/13/23 13:23 96 02/13/23 13:10 98 02/13/23 07:00 02/13/23 08:16 97 Room Air 02/13/23 02:32 99 Room Air
[2023-02-13] MEDS: SODIUM CHLORIDE 0.9% 1000ML 1,000 ML IV SCH (13:52)
[2023-02-13 18:20] LABS: Hematocrit (blood only) 24.6 % (42.0-52.0); Hemoglobin 8.7 g/dl (14.0-18.0)
[2023-02-13] MEDS: MELATONIN 3 MG TAB PO PRN (22:51)
[2023-02-14 01:09] LABS: Hematocrit (blood only) 23.5 % (42.0-52.0); Hematocrit (blood only) 23.6 % (42.0-52.0); Hemoglobin 8.4 g/dl (14.0-18.0); Hemoglobin 8.5 g/dl (14.0-18.0); Mean Corpuscular Hemoglobin 32.1 pg (25.0-34.0); Mean Corpuscular Hgb Conc 35.7 g/dL (32.0-36.0); Mean Corpuscular Volume 89.7 fL (80.0-100.0); Mean Platelet Volume 9.9 fL (9.4-12.4); Platelet Count 197 K/uL (130-400); RDW Coefficient of Variation 12.4 % (11.5-14.5); RDW Standard Deviation 39.8 fL (36.4-46.3); Red Blood Count 2.62 M/uL (4.70-6.10); White Blood Count 6.36 K/ul (4.8-10.8)
[2023-02-14 01:22] LABS: BUN Creatinine Ratio 25.8 (10-20); Calcium 7.5 mg/dl (8.6-10.3); Creatinine Clr Calc Pharmacy 115.7 ml/min; Magnesium 1.7 mg/dl (1.7-2.4); Potassium 3.6 mmol/L (3.5-5.1)
[2023-02-14] MEDS: PANTOprazole 40 MG in DEXTROSE 5% 100 ML IV SCH ×5 (01:48→22:34)
[2023-02-14] MEDS: SODIUM CHLORIDE 0.9% 1000ML 1,000 ML IV SCH (06:33)
[2023-02-14] MEDS: ATORVASTATIN 40 MG TAB PO SCH (07:57)
[2023-02-14] MEDS: EZETIMIBE 10 MG TABLET PO SCH (07:57)
[2023-02-14] MEDS: NICOTINE 21 MG/24 HR TDSY TD SCH (07:57)
[2023-02-14 09:08] LABS: Hematocrit (blood only) 23.3 % (42.0-52.0); Hemoglobin 8.3 g/dl (14.0-18.0)
--- NOTE | 2023-02-14 13:15 | Gastroenterology Progress Note ---
Date of Service February 14, 2023 Assessment & Plan Admission and Anticipated Discharge Date Admission Date: February 12, 2023 Subjective Pt s complaints. No BM since admission. Received 1 U PRBC with rise in hgb fr om 7's to 8s. Leda liquids without difficulty. Vigorous uop. On PPI gtt. PE: Comfortable, NAD BP 120's-130's Abd: soft NT Labs reviewed - BUN WNL A/P: UGIB, significant hgb drop and hypotension on admit but presently stable without evidence of ongoing GIB On Plavix/ASA/Pletal, currently held - Cont PPI gtt overnight, plan EGD tomorrow. Results & Data Vital Signs (Past 12 Hours) Vital Signs Temp Pulse Resp BP Pulse Ox O2 Del Method 02/14/23 11:49 36.8 C 67 16 130/71 98 Room Air 02/14/23 10:17 Room Air 02/14/23 08:14 36.6 C 64 16 119/66 94 Room Air 02/14/23 02:26 36.5 C 63 16 117/79 96 Room Air
--- NOTE | 2023-02-14 15:28 | Hospitalist Progress Note ---
Date of Service February 14, 2023 Assessment & Plan (1) Acute upper GI bleed: Plan: Patient is 67 y/o M with PMH CAD, PVD s/p stent RLE, HTN, dyslipidemia, COPD, tobacco use presented to ER with c/o melena today, exertional shortness of breath, dizziness x1 day. Suspected UGI bleed. In ER afebrile, P: 80-100, BP 103/65, 100% on room air. H/H: 10.3/29, BUN: 55. Hgb was 15 and 11/18/2020 Hemoglobin trending down 10.3->8.6->8.1->7.7. CT abdomen pelvis unremarkable Received 1 unit of of PRBC and continue to trend hemoglobin and transfuse as indicated Continue IV fluids Continue IV PPI drip. Continue to hold aspirin/Plavix No further bowel movements since admission. Seen by GI- continue PPI Hemoglobin remains stable at 8.3 as of 02/14/2023 Appreciate GI input and recommendation for EGD on Wednesday CT A/P 1. No bowel wall thickening or obstruction. 2. Normal appendix. 3. No hydronephrosis. 4. Prostatomegaly. (2) Symptomatic anemia: Plan: As above (3) Peripheral vascular disease: Plan: 01/13/23:Fem/pop artery revascularization with stent and angioplasty. Hold aspirin, Plavix Continue Pletal, atorvastatin (4) HTN (hypertension): Plan: Hold lisinopril, HCTZ, diltiazem with suspected current GI bleed and low BP. We will resume as indicated (5) Dyslipidemia: Plan: Continue atorvastatin, Zetia (6) COPD (chronic obstructive pulmonary disease): Plan: Not on medication No acute exacerbation CXR: No acute infiltrate (7) Tobacco use: Plan: Smoking cessation encouraged. States he is planning to quit smoking. Nicotine patch DVT Prophylaxis- SCDs. Chemoprophylaxis contraindicated in setting of GI bleed requiring transfusion Disposition- trending H&H, receiving blood transfusion and IVF. Plan for EGD per GI Likely discharge tomorrow Admission and Anticipated Discharge Date Admission Date: February 12, 2023 Subjective 02/14/2023 The patient was seen and examined in medical telemetry unit He was admitted with melena and required 1 unit of blood transfusion Noted to have taken NSAIDs regularly for pain No history of hematemesis Denies any symptoms this morning Review of Systems Review of Systems: All systems reviewed and are unremarkable except as noted below Physical Exam Physical Exam: Sitting on a chair without any acute distress Constitutional: well developed, well nourished and average body habitus; not ill appearing Eyes: PERRL, conjunctivae normal, anicteric sclerae ENMT: external ear and nose normal, oropharynx normal Neck: trachea midline, no thyromegaly Respiratory: no respiratory distress Auscultation: lungs clear to auscultation bilaterally Cardiovascular: Rate/Rhythm: regular rate and regular rhythm; not tachycardic Heart Sounds: normal S1 and normal S2; no murmur Extremities: no edema Gastrointestinal (Abdomen): Inspection/Auscultation: normal bowel sounds; abdomen not distended Percussion/Palpation: abdomen soft; abdomen nontender Musculoskeletal: No acute arthritis involving any joint Neurologic: Alert, awake and oriented x3. No focal sensory or motor deficit appreciated Psychiatric: A+Ox3, euthymic affect Lymphatic: no cervical or axillary lymphadenopathy Results & Data Results & Data Vital Signs (Past 12 Hours) Vital Signs Temp Pulse Resp BP Pulse Ox O2 Del Method 02/14/23 15:20 36.7 C 67 16 133/87 99 Room Air 02/14/23 11:49 36.8 C 67 16 130/71 98 Room Air 02/14/23 10:17 Room Air 02/14/23 08:14 36.6 C 64 16 119/66 94 Room Air Laboratory Results Short CBC 02/13/23 02/14/23 02/14/23 Range/Units 18:04 00:47 00:47 WBC 6.36 (4.8-10.8) K/ul Hgb 8.7 L 8.4 L 8.5 L (14.0-18.0) g/dl Hct 24.6 L 23.5 L 23.6 L (42.0-52.0) % Plt Count 197 (130-400) K/uL 02/14/23 Range/Units 08:37 WBC (4.8-10.8) K/ul Hgb 8.3 L (14.0-18.0) g/dl Hct 23.3 L (42.0-52.0) % Plt Count (130-400) K/uL BMP 02/14/23 00:47 Sodium 134 L Potassium 3.6 Chloride 108 H Carbon Dioxide 21 BUN 17 Creatinine 0.66 Glucose 88 Calcium 7.5 L Medications Administered Current Inpatient Medications Acetaminophen (Acetaminophen 325 Mg Tab) 650 mg PO Q4H PRN PRN Reason: Pain or Fever Stop: 03/14/23 18:50 Last Admin: 02/14/23 07:56 Dose: 650 mg Atorvastatin Calcium (Atorvastatin 40 Mg Tab) 80 mg PO QAM [facility] Stop: 03/15/23 08:59 Last Admin: 02/14/23 07:57 Dose: 80 mg Ezetimibe ([facility]imibe 10 Mg Tablet) [facility] [place] Stop: 03/15/23 08:59 Last Admin: 02/14/23 07:57 Dose: 10 mg Pantoprazole Sodium 40 mg/ (Dextrose) 100 mls @ 20 mls/hr IV Q5H [facility] Stop: 03/14/23 18:59 Last Admin: 02/14/23 12:33 Dose: 8 mg/hr, 20 mls/hr Melatonin (Melatonin 3 Mg Tab) 3 mg PO HS PRN PRN Reason: Sleep Stop: 03/15/23 20:44 Last Admin: 02/13/23 22:51 Dose: 3 mg Miscellaneous (Remove Nicoderm Patch) 1 each N/A DAILY@0859 [facility] Stop: 03/15/23 08:58 Last Admin: 02/14/23 07:57 Dose: 1 each Morphine Sulfate (Morphine Sulfate 2 Mg/Ml Carp) 2 mg IV Q4H PRN PRN Reason: Pain Stop: 02/26/23 19:51 Nicotine (Nicotine 21 Mg/24 Hr Tdsy) [facility] [place] Stop: 03/14/23 18:50 Last Admin: 02/14/23 07:57 Dose: 21 mg Ondansetron HCl (Ondansetron Inj 2 Mg/Ml 2 Ml Vial) 4 mg IV Q6H PRN PRN Reason: Nausea Stop: 03/14/23 18:50
[2023-02-14] MEDS: MELATONIN 3 MG TAB PO PRN (21:53)
[2023-02-15] MEDS: PANTOprazole 40 MG in DEXTROSE 5% 100 ML IV SCH ×4 (03:38→21:07)
[2023-02-15 06:54] LABS: Basophils # (auto) 0.07 K/uL (0-0.2); Basophils % (auto) 1.1 %; Eosinophils # (auto) 0.17 K/uL (0-0.50); Eosinophils % (auto) 2.7 %; Hematocrit (blood only) 24.4 % (42.0-52.0); Hemoglobin 8.7 g/dl (14.0-18.0); Immature Granulocytes # (auto) 0.02 K/uL (0.01-0.20); Immature Granulocytes % (auto) 0.3 %; Lymphocytes % (auto) 30.7 %; Mean Corpuscular Hgb Conc 35.7 g/dL (32.0-36.0); Mean Corpuscular Volume 89.7 fL (80.0-100.0); Mean Platelet Volume 10.3 fL (9.4-12.4); Monocytes # (auto) 0.49 K/uL (0.11-0.59); Monocytes % (auto) 7.9 %; Neutrophils # (auto) 3.54 K/uL (1.40-6.50); Neutrophils % (auto) 57.3 %; Platelet Count 203 K/uL (130-400); RDW Coefficient of Variation 12.7 % (11.5-14.5); RDW Standard Deviation 40.5 fL (36.4-46.3); Red Blood Count 2.72 M/uL (4.70-6.10); White Blood Count 6.19 K/ul (4.8-10.8)
[2023-02-15 07:11] LABS: BUN Creatinine Ratio 14.5 (10-20); Calcium 8.2 mg/dl (8.6-10.3); Creatinine Clr Calc Pharmacy 115.6 ml/min; Est GFR (Non-African American) 102.7 ml/min; Potassium 3.7 mmol/L (3.5-5.1)
--- NOTE | 2023-02-15 08:31 | History & Physical Bridge Note ---
Date of Service February 15, 2023 History & Physical Bridge Note I have examined the patient, reviewed the History & Physical and in the interval since the performance of the History & Physical I have noted the following changes of clinical significance: no changes noted EGD Patient was explained in detail regarding risks, benefits, limitations and alternatives of the above endoscopic procedure. Risks of intravenous sedation used for procedure were also explained. Risks include, but not limited to perforation, bleeding, infection, respiratory distress, cardiac arrest and . Patient is also aware about the possibility of missed lesion. Patient's questions were answered. The patient verbalized understanding the information and agreed to undergo the procedure.
--- NOTE | 2023-02-15 08:55 | Anesthesiology Consultation ---
Date of Service February 15, 2023 Assessment & Plan (1) Encounter for pre-operative examination: Chart Review Chart Review: Acceptable Risk for Surgery, Patient NOT seen in Pre Admission Testing and entry level finance initiated Consults Requested none ASA ASA3 Proposed Anesthesia Anesthesia Type: MAC Risk / Benefits Reviewed With: PT / POA / Parent / Guardian, Accepts Plan and Informed Consent Obtained History Surgery Operation Date: 02/15/23 17:15 Proposed Procedures p Esophagogastroduodenoscopy Dr Skinner - Carley Skinner MD Height/Weight Height: 5 ft 11 in Weight: 70.7 kg Allergies Allergy/AdvReac Type Severity Reaction Status Date / Time No Known Allergies Allergy Verified 02/12/23 14:58 Medications Home Medications Medication Instructions Recorded Confirmed Last Taken aspirin 81 mg tablet 81 mg PO DAILY 02/12/23 02/12/23 02/11/23 atorvastatin 80 mg tablet 80 mg PO QA 02/12/23 02/12/23 02/11/23 cilostazol 100 mg tablet 100 mg PO BID 02/12/23 02/12/23 02/11/23 clopidogrel 75 mg tablet 75 mg PO QAM 02/12/23 02/12/23 02/11/23 diltiazem HCl 180 mg 180 mg PO QA 02/12/23 02/12/23 02/11/23 capsule,extended release 24 hr ezetimibe 10 mg tablet 10 mg PO QAM 02/12/23 02/12/23 02/11/23 lisinopril 20 1 tab PO QA 02/12/23 02/12/23 02/11/23 mg-hydrochlorothiazide 12.5 mg tablet Active Medications Generic Name Dose Route Start Last Admin Trade Name Freq PRN Reason Stop Dose Admin Acetaminophen 650 mg 02/12/23 18:51 02/14/23 07:56 Acetaminophen 325 Mg Tab PO 03/14/23 18:50 650 mg Q4H PRN Administration Pain or Fever Atorvastatin Calcium 80 mg 02/13/23 09:00 02/14/23 07:57 Atorvastatin 40 Mg Tab PO 03/15/23 08:59 80 mg QAM MULU Administration Ezetimibe 10 mg 02/13/23 09:00 02/14/23 07:57 Ezetimibe 10 Mg Tablet PO 03/15/23 08:59 10 mg QAM MULU Administration Pantoprazole Sodium 40 mg/ 100 mls @ 20 mls/hr 02/12/23 19:00 02/15/23 08:16 Dextrose IV 03/14/23 18:59 8 mg/hr Q5H MULU 20 mls/hr Administration 8 MG/HR Melatonin 3 mg 02/13/23 20:45 02/14/23 21:53 Melatonin 3 Mg Tab PO 03/15/23 20:44 3 mg HS PRN Administration Sleep Miscellaneous 1 each 02/13/23 08:59 02/14/23 07:57 Remove Nicoderm Patch N/A 03/15/23 08:58 1 each DAILY@0859 MULU Administration Nicotine 21 mg 02/12/23 18:51 02/14/23 07:57 Nicotine 21 Mg/24 Hr Tdsy TD 03/14/23 18:50 21 mg QAM MULU Administration NPO Date Last Intake of Fluids: 02/14/23 Time Last Intake of Fluids: 23:30 Date Last Intake of Solids: 02/10/23 Time Last Intake of Solids: 18:00 Past Medical History Medical History COPD (chronic obstructive pulmonary disease) Dyslipidemia Encounter for pre-operative examination HTN (hypertension) Peripheral vascular disease Tobacco use Exercise / Class Metabolic Activity II 4-5 Yardwork/Stairs/Walk up hill Past Family History Family History Other Heart disease Stroke Past Surgical History Surgical History History of revascularization procedure of lower extremity 01/13/2023 fem/pop artery revascularization with stent angioplasty. By Dr. Miki Garcia at [facility] [place] History of spinal fusion Past Anesthesia History No Hx of Anesthesia Complications and No Family Hx of Anesthesia Complications History of PONV No Hx of PONV and No Hx of Motion Sickness Social History Smoking Status: Current every day smoker tobacco type: cigarettes Smoking cigarettes per day: 20 Hx Alcohol Use: Yes alcohol intake frequency: 0-2 drinks per day Hx Substance Use: No substance use type: does not use Physical Exam Vital Signs Last Vital Signs Temp 36.5 C 02/15/23 08:32 Pulse 56 L 02/15/23 08:32 Resp 16 02/15/23 08:32 BP 140/109 H 02/15/23 08:32 Pulse Ox 98 02/15/23 08:32 O2 Del Method Room Air 02/15/23 08:32 Constitutional no acute distress ENMT Mouth: + dentures and + edentulous Thyromental Distance: > or= 3.5 Finger Breadths Mallampati Class: III Neck normal visual inspection and trachea midline; neck extension not limited Respiratory normal respiratory effort; no respiratory distress Auscultation: lungs clear to auscultation bilaterally; no crackles, no rhonchi and no wheezes Cardiovascular Rate/Rhythm: regular rate and regular rhythm (occ trigeminy, freq ectopy. underlying rhythm regular.) Heart Sounds: no gallop, no murmur and no cardiac rub Musculoskeletal Head/Neck/Chest: full ROM of neck Neurologic moves all extremities and awake Psychiatric Orientation: alert and oriented x 3 Testing Laboratory Results 02/15/23 05:25 02/15/23 05: PT 11.4 Seconds (9.0-12.0) 02/12/23 12:03 INR 1.0 (0.9-1.1) 02/12/23 12:03 Urine Color Yellow 02/12/23 15:29 Urine Appearance Clear (Clear) 02/12/23 15:29 Urine pH 5.5 (4.5-7.5) 02/12/23 15:29 Ur Specific [place] > 1.045 (1.000-1.030) H 02/12/23 15:29 Urine Protein Negative (Negative) 02/12/23 15:29 Urine Glucose (UA) Negative (Negative) 02/12/23 15:29 Urine Ketones Negative (Negative) 02/12/23 15:29 Urine Nitrite Negative (Negative) 02/12/23 15:29 Ur Leukocyte Esterase Negative (Negative) 02/12/23 15:29 Blood Type O Positive 02/12/23 12:03 Antibody Screen NEGATIVE 02/12/23 12:03
--- NOTE | 2023-02-15 09:44 | GI REPORT ---
Patient Name: Musa Castañeda Procedure Date: 02/15/2023 8:32 AM Date of : 1955 Admit Type: Inpatient Age: 67 Gender: Male Attending MD: Carley Skinner MD, Procedure: Upper GI endoscopy Providers: Carley Skinner MD Referring MD: Elian Matos Indications: Suspected upper gastrointestinal bleeding Medicines: Propofol per Anesthesia Complications: No immediate complications. Estimated Blood Loss: Estimated blood loss: none. Procedure: Pre-Anesthesia Assessment: - Prior to the procedure, a History and Physical was performed, and patient medications, allergies and sensitivities were reviewed. The patient's tolerance of previous anesthesia was reviewed. - The risks and benefits of the procedure and the sedation options and risks were discussed with the patient. All questions were answered and informed consent was obtained. - Patient identification and proposed procedure were verified prior to the procedure by the physician and the nurse. The procedure was verified in the procedure room. - Pre-procedure physical examination revealed no contraindications to sedation. After obtaining informed consent, the endoscope was passed under direct vision. Throughout the procedure, the patient's blood pressure, pulse, and oxygen saturations were monitored continuously. The Endoscope was introduced through the mouth, and advanced to the second part of duodenum. The upper GI endoscopy was accomplished without difficulty. The patient tolerated the procedure well. Findings: The examined esophagus was normal. The entire examined stomach was normal. One oozing cratered duodenal ulcer with a visible vessel was found in the duodenal bulb. The lesion was 10 mm in largest dimension. Coagulation for hemostasis using monopolar probe was successful. For hemostasis, one hemostatic clip was successfully placed (MR conditional). The second portion of the duodenum was normal. Impression: - Normal esophagus. - Normal stomach. - Oozing duodenal ulcer with a visible vessel. Treated with a monopolar probe. Padlock Clip was placed. - Normal second portion of the duodenum. - No specimens collected. Recommendation: - [facility]. - Clear liquid diet for 2 days then full liquids for 2 days then advance as tolerated. - No aspirin, ibuprofen, naproxen, or other non-steroidal anti-inflammatory drugs. - Resume Plavix (clopidogrel) at prior dose in 3 days. Carley Skinner MD 02/15/2023 9:44:10 AM This report has been signed electronically. Note Initiated On: 02/15/2023 8:32 AM Number of Addenda: 0 I attest to the content of the Intraoperative Record and orders documented therein, exceptions below {[id number]}
[2023-02-15] MEDS: ATORVASTATIN 40 MG TAB PO SCH (11:51)
[2023-02-15] MEDS: EZETIMIBE 10 MG TABLET PO SCH (11:51)
[2023-02-15] MEDS: NICOTINE 21 MG/24 HR TDSY TD SCH (11:51)
--- NOTE | 2023-02-15 13:19 | Anesthesiology Progress Note ---
Date of Service February 15, 2023 Anesthesia Post Procedure Vital Signs Vital Signs: Temp Pulse Pulse Resp BP Pulse Ox O2 Del Method 02/15/23 11:50 36.4 C L 62 20 150/74 H 98 Room Air 02/15/23 10:14 69 20 161/99 H 99 Room Air 02/15/23 09:58 59 L 20 133/73 97 Room Air 02/15/23 09:43 74 16 116/60 97 Room Air 02/15/23 08:32 36.5 C 56 L 16 140/109 H 98 Room Air 02/15/23 08:04 36.7 C 57 L 19 136/73 100 Room Air 02/15/23 02:45 36.7 C 69 16 119/69 98 Room Air 02/14/23 20:00 Room Air 02/14/23 22:35 71 02/14/23 22:38 36.8 C 66 18 117/75 96 Room Air 02/14/23 19:15 36.7 C 67 16 124/67 99 Room Air 02/14/23 16:00 68 02/14/23 15:20 36.7 C 67 16 133/87 99 Room Air Pain Intensity Bilateral Abdomen: Pain Intensity: 3 Transfer of Care Handoff Completed per policy Notes Mental Status: alert / awake / arousable and participated in evaluation Patient Amnestic to Procedure: Yes Nausea / Vomiting: adequately controlled Pain: adequately controlled Airway Patency, RR, SpO2: stable & adequate BP & HR: stable & adequate Hydration State: stable & adequate Anesthetic Complications: no major complications apparent
--- NOTE | 2023-02-15 15:23 | Hospitalist Progress Note ---
Date of Service February 15, 2023 Assessment & Plan (1) Acute upper GI bleed: Plan: Patient is 67 y/o M with PMH CAD, PVD s/p stent RLE, HTN, dyslipidemia, COPD, tobacco use presented to ER with c/o melena today, exertional shortness of breath, dizziness x1 day. Suspected UGI bleed. In ER afebrile, P: 80-100, BP 103/65, 100% on room air. H/H: 10.3/29, BUN: 55. Hgb was 15 and 11/18/2020 Hemoglobin trending down 10.3->8.6->8.1->7.7. CT abdomen pelvis unremarkable Received 1 unit of of PRBC and continue to trend hemoglobin and transfuse as indicated Continue IV fluids Continue IV PPI drip. Continue to hold aspirin/Plavix No further bowel movements since admission. Seen by GI- continue PPI Hemoglobin remains stable at 8.3 as of 02/14/2023 Appreciate GI input and recommendation for EGD on Wednesday Status post EGD-noted to have oozing duodenal ulcer with a visible vessel which was treated with a monopolar probe and padlock clip was placed Will need to have Protonix IV until tomorrow before he can be discharged Advised to have clears orally today and tomorrow and then full liquid for 2 days and after that regular diet Plavix can be started on third day and aspirin may be next week or so CT A/P 1. No bowel wall thickening or obstruction. 2. Normal appendix. 3. No hydronephrosis. 4. Prostatomegaly. (2) Symptomatic anemia: Plan: As above (3) Peripheral vascular disease: Plan: 01/13/23:Fem/pop artery revascularization with stent and angioplasty. Hold aspirin, Plavix Continue Pletal, atorvastatin (4) HTN (hypertension): Plan: Hold lisinopril, HCTZ, diltiazem with suspected current GI bleed and low BP. We will resume as indicated (5) Dyslipidemia: Plan: Continue atorvastatin, Zetia (6) COPD (chronic obstructive pulmonary disease): Plan: Not on medication No acute exacerbation CXR: No acute infiltrate (7) Tobacco use: Plan: Smoking cessation encouraged. States he is planning to quit smoking. Nicotine patch DVT Prophylaxis- SCDs. Chemoprophylaxis contraindicated in setting of GI bleed requiring transfusion Disposition- trending H&H, receiving blood transfusion and IVF. Plan for EGD per GI Likely discharge tomorrow Admission and Anticipated Discharge Date Admission Date: February 12, 2023 Subjective 02/14/2023 The patient was seen and examined in medical telemetry unit He was admitted with melena and required 1 unit of blood transfusion Noted to have taken NSAIDs regularly for pain No history of hematemesis Denies any symptoms this morning 02/15/2023 The patient was seen and examined in medical telemetry unit He is a status post EGD and noted to have duodenal ulcer which was stapled He has to have Protonix drip for another day before he can be discharged Denies any significant symptoms Review of Systems Review of Systems: All systems reviewed and are unremarkable except as noted below Physical Exam Physical Exam: Sitting on a chair without any acute distress Constitutional: well developed, well nourished and average body habitus; not ill appearing Eyes: PERRL, conjunctivae normal, anicteric sclerae ENMT: external ear and nose normal, oropharynx normal Neck: trachea midline, no thyromegaly Respiratory: no respiratory distress Auscultation: lungs clear to auscultation bilaterally Cardiovascular: Rate/Rhythm: regular rate and regular rhythm; not tachycardic Heart Sounds: normal S1 and normal S2; no murmur Extremities: no edema Gastrointestinal (Abdomen): Inspection/Auscultation: normal bowel sounds; abdomen not distended Percussion/Palpation: abdomen soft; abdomen nontender Musculoskeletal: No acute arthritis involving any joint Neurologic: normal touch/pain/proprioception, moves all extremities and + focal motor deficit Psychiatric: A+Ox3, euthymic affect Lymphatic: no cervical or axillary lymphadenopathy Results & Data Results & Data Vital Signs (Past 12 Hours) Vital Signs Temp Pulse Resp BP Pulse Ox O2 Del Method 02/15/23 11:50 36.4 C L 62 20 150/74 H 98 Room Air 02/15/23 10:14 69 20 161/99 H 99 Room Air 02/15/23 09:58 59 L 20 133/73 97 Room Air 02/15/23 09:43 74 16 116/60 97 Room Air 02/15/23 08:32 36.5 C 56 L 16 140/109 H 98 Room Air 02/15/23 08:04 36.7 C 57 L 19 136/73 100 Room Air Laboratory Results Short CBC 02/15/23 Range/Units 05:25 WBC 6.19 (4.8-10.8) K/ul Hgb 8.7 L (14.0-18.0) g/dl Hct 24.4 L (42.0-52.0) % Plt Count 203 (130-400) K/uL BMP 02/15/23 05:25 Sodium 139 Potassium 3.7 Chloride 111 H Carbon Dioxide 24 BUN 9 Creatinine 0.62 Glucose 90 Calcium 8.2 L Medications Administered Current Inpatient Medications Acetaminophen (Acetaminophen 325 Mg Tab) 650 mg PO Q4H PRN PRN Reason: Pain or Fever Stop: 03/14/23 18:50 Last Admin: 02/14/23 07:56 Dose: 650 mg Atorvastatin Calcium (Atorvastatin 40 Mg Tab) [facility] [place] Stop: 03/15/23 08:59 Last Admin: 02/15/23 11:51 Dose: 80 mg Ezetimibe (Ezetimibe 10 Mg Tablet) [facility] [place] Stop: 03/15/23 08:59 Last Admin: 02/15/23 11:51 Dose: 10 mg Pantoprazole Sodium 40 mg/ (Dextrose) 100 mls @ 20 mls/hr IV Q5H [facility] Stop: 03/14/23 18:59 Last Admin: 02/15/23 08:16 Dose: 8 mg/hr, 20 mls/hr Melatonin (Melatonin 3 Mg Tab) 3 mg PO HS PRN PRN Reason: Sleep Stop: 03/15/23 20:44 Last Admin: 02/14/23 21:53 Dose: 3 mg Miscellaneous (Remove Nicoderm Patch) 1 each N/A DAILY@0859 [facility] Stop: 03/15/23 08:58 Last Admin: 02/15/23 11:52 Dose: 1 each Morphine Sulfate (Morphine Sulfate 2 Mg/Ml Carp) 2 mg IV Q4H PRN PRN Reason: Pain Stop: 02/26/23 19:51 Nicotine (Nicotine 21 Mg/24 Hr Tdsy) 21 mg TD QAM [facility] Stop: 03/14/23 18:50 Last Admin: 02/15/23 11:51 Dose: 21 mg Ondansetron HCl (Ondansetron Inj 2 Mg/Ml 2 Ml Vial) 4 mg IV Q6H PRN PRN Reason: Nausea Stop: 03/14/23 18:50
[2023-02-15 17:44] LABS: Basophils # (auto) 0.04 K/uL (0-0.2); Basophils % (auto) 0.6 %; Eosinophils % (auto) 1.5 %; Hemoglobin 8.4 g/dl (14.0-18.0); Immature Granulocytes # (auto) 0.03 K/uL (0.01-0.20); Immature Granulocytes % (auto) 0.4 %; Lymphocytes # (auto) 1.47 K/uL (1.2-3.4); Mean Corpuscular Hemoglobin 32.4 pg (25.0-34.0); Mean Corpuscular Volume 92.7 fL (80.0-100.0); Mean Platelet Volume 10.4 fL (9.4-12.4); Monocytes # (auto) 0.52 K/uL (0.11-0.59); Monocytes % (auto) 7.8 %; Neutrophils # (auto) 4.53 K/uL (1.40-6.50); Neutrophils % (auto) 67.7 %; Platelet Count 199 K/uL (130-400); RDW Coefficient of Variation 12.9 % (11.5-14.5); Red Blood Count 2.59 M/uL (4.70-6.10); White Blood Count 6.69 K/ul (4.8-10.8)
[2023-02-16] MEDS: PANTOprazole 40 MG in DEXTROSE 5% 100 ML IV SCH ×3 (02:03→10:39)
[2023-02-16 06:49] LABS: Basophils # (auto) 0.05 K/uL (0-0.2); Basophils % (auto) 0.8 %; Eosinophils # (auto) 0.15 K/uL (0-0.50); Eosinophils % (auto) 2.5 %; Hematocrit (blood only) 24.3 % (42.0-52.0); Hemoglobin 8.4 g/dl (14.0-18.0); Immature Granulocytes # (auto) 0.02 K/uL (0.01-0.20); Immature Granulocytes % (auto) 0.3 %; Lymphocytes # (auto) 1.55 K/uL (1.2-3.4); Lymphocytes % (auto) 25.8 %; Mean Corpuscular Hemoglobin 31.7 pg (25.0-34.0); Mean Corpuscular Hgb Conc 34.6 g/dL (32.0-36.0); Mean Corpuscular Volume 91.7 fL (80.0-100.0); Mean Platelet Volume 10.5 fL (9.4-12.4); Neutrophils # (auto) 3.63 K/uL (1.40-6.50); Neutrophils % (auto) 60.6 %; Platelet Count 196 K/uL (130-400); RDW Coefficient of Variation 12.9 % (11.5-14.5); RDW Standard Deviation 41.5 fL (36.4-46.3); Red Blood Count 2.65 M/uL (4.70-6.10)
[2023-02-16 07:14] LABS: BUN Creatinine Ratio 8.8 (10-20); Calcium 8.4 mg/dl (8.6-10.3); Creatinine Clr Calc Pharmacy 105.4 ml/min; Est GFR (African American) 114.5 ml/min; Est GFR (Non-African American) 98.8 ml/min; Potassium 3.6 mmol/L (3.5-5.1)
[2023-02-16] MEDS: ATORVASTATIN 40 MG TAB PO SCH (08:35)
[2023-02-16] MEDS: EZETIMIBE 10 MG TABLET PO SCH (08:35)
[2023-02-16] MEDS: NICOTINE 21 MG/24 HR TDSY TD SCH (08:40)
--- NOTE | 2023-02-16 09:43 | Gastroenterology Progress Note ---
Date of Service February 16, 2023 Assessment & Plan (1) Duodenal ulcer: Plan 1. Advance diet. 2. Change IV PPI to po 40mg BID and continue x 2 months. 3. May restart ASA and Plavix on . 4. No repeat EGD or GI f/u required (unless new symptoms). 5. GI will sign off. Admission and Anticipated Discharge Date Admission Date: February 12, 2023 Supervising Physician Co-Signing Physician Notes I performed a history and physical examination of the patient today, including specifically on physical exam - soft abdomen. I have discussed the patient's management with the advanced practitioner. Please refer to the nurse practitioner's note for the documented findings and plan of care. PO PPI for 3 months. Avoid NSAIDs. Recall if needed. Subjective Mr. Castañeda is a 67 yr old male who is on Plavix/ASA 81mg and had been taking Ibuprofen 800mg 3-4x/week who presented for melena, anemia (Hb 10->8.4) and underwent EGD yesterday w findings of a oozing duodenal ulcer coagulated w APC then clipped. Today, pt is awake, alert, oriented, would like to go home. Is currently on a PPI drip and clear liquids po. Reports having passed one small "coffee grounds" BM yesterday after the EGD, none yet today. No abd pain today. HB stable at 8.4 (no blood products received), BUN normal. Review of Systems Review of Systems: ROS: Gen: Denies weakness, fevers, weight loss Eyes: No eye redness, or pain, no recent vision changes Resp: No SOB, no cough Cardio: No palpitations/irregular beats, no chest pain GI: No abdominal pain, no nausea/vomiting : Denies pain on urination Skin: No jaundice, itching or new rashes Physical Exam Constitutional: WD/WN, vitals as above Eyes: PERRL, conjunctivae normal, anicteric sclerae ENMT: external ear and nose normal, oropharynx normal Neck: trachea midline, no thyromegaly Respiratory: normal respiratory effort, lungs clear to auscultation Cardiovascular: RRR, no murmur, no edema Gastrointestinal (Abdomen): normal bowel sounds, soft, nontender, no hepatosplenomegaly Skin: no rashes, warm and dry Tattoos Neurologic: PERRL, EOMI, accommodation nl, no face palsy, no dysarthria Psychiatric: A+Ox3, euthymic affect Lymphatic: no cervical or axillary lymphadenopathy Results & Data Vital Signs (Past 12 Hours) Vital Signs Temp Pulse Pulse Resp BP BP Pulse Ox 02/16/23 08:00 73 02/16/23 07:39 36.8 C 82 18 106/63 96 02/16/23 00:00 70 02/16/23 04:00 36.6 C 59 L 19 126/70 99 02/16/23 00:00 02/15/23 23:00 36.7 C 84 18 121/72 96 O2 Del Method 02/16/23 08:00 02/16/23 07:39 Room Air 02/16/23 00:00 02/16/23 04:00 Room Air 02/16/23 00:00 Room Air 02/15/23 23:00 Room Air Laboratory Results WBC 6, Hb 8.4, Hct 24, Plts 196, Na 141, K 3.6, Cl 110, CO26 BUN 6, Cr 0.68 glucose 89 Diagnostic Findings CTAP w IV contrast 02/12/23: 1. No bowel wall thickening or obstruction. 2. Normal appendix. 3. No hydronephrosis. 4. Prostatomegaly.
--- NOTE | 2023-02-16 11:30 | Hospitalist Progress Note ---
Date of Service February 16, 2023 Assessment & Plan (1) Acute upper GI bleed: Plan: Patient is 67 y/o M with PMH CAD, PVD s/p stent RLE, HTN, dyslipidemia, COPD, tobacco use presented to ER with c/o melena today, exertional shortness of breath, dizziness x1 day. Suspected UGI bleed. In ER afebrile, P: 80-100, BP 103/65, 100% on room air. H/H: 10.3/29, BUN: 55. Hgb was 15 and 11/18/2020 Hemoglobin trending down 10.3->8.6->8.1->7.7. CT abdomen pelvis unremarkable Received 1 unit of of PRBC and continue to trend hemoglobin and transfuse as indicated Continue IV fluids Continue IV PPI drip. Continue to hold aspirin/Plavix No further bowel movements since admission. Seen by GI- continue PPI Hemoglobin remains stable at 8.3 as of 02/14/2023 Appreciate GI input and recommendation for EGD on Wednesday Status post EGD-noted to have oozing duodenal ulcer with a visible vessel which was treated with a monopolar probe and padlock clip was placed Will need to have Protonix IV until tomorrow before he can be discharged Advised to have clears orally today and tomorrow and then full liquid for 2 days and after that regular diet Plavix can be started on third day and aspirin may be next week or so Remains stable with hemoglobin at 8.4. No more melena and/or hematochezia Will be discharged home this afternoon and he will start his aspirin and Plavix on CT A/P 1. No bowel wall thickening or obstruction. 2. Normal appendix. 3. No hydronephrosis. 4. Prostatomegaly. (2) Symptomatic anemia: Plan: As above (3) Peripheral vascular disease: Plan: 01/13/23:Fem/pop artery revascularization with stent and angioplasty. Hold aspirin, Plavix Continue Pletal, atorvastatin (4) HTN (hypertension): Plan: Hold lisinopril, HCTZ, diltiazem with suspected current GI bleed and low BP. We will resume as indicated Blood pressure remains stable (5) Dyslipidemia: Plan: Continue atorvastatin, Zetia (6) COPD (chronic obstructive pulmonary disease): Plan: Not on medication No acute exacerbation CXR: No acute infiltrate (7) Tobacco use: Plan: Smoking cessation encouraged. States he is planning to quit smoking. Nicotine patch DVT Prophylaxis- SCDs. Chemoprophylaxis contraindicated in setting of GI bleed requiring transfusion Disposition- trending H&H, receiving blood transfusion and IVF. Plan for EGD per GI Likely discharge tomorrow Admission and Anticipated Discharge Date Admission Date: February 12, 2023 Subjective 02/14/2023 The patient was seen and examined in medical telemetry unit He was admitted with melena and required 1 unit of blood transfusion Noted to have taken NSAIDs regularly for pain No history of hematemesis Denies any symptoms this morning 02/15/2023 The patient was seen and examined in medical telemetry unit He is a status post EGD and noted to have duodenal ulcer which was stapled He has to have Protonix drip for another day before he can be discharged Denies any significant symptoms 02/16/2023 The patient was seen and examined in medical telemetry unit He has been feeling much better and did not have any more blood per rectum His melena has been improving Denies any symptoms and hemoglobin remains stable He will be discharged home this afternoon Review of Systems Review of Systems: All systems reviewed and are unremarkable except as noted below Physical Exam Physical Exam: Sitting on a chair without any acute distress Constitutional: well developed, well nourished and average body habitus; not ill appearing Eyes: PERRL, conjunctivae normal, anicteric sclerae ENMT: external ear and nose normal, oropharynx normal Neck: trachea midline, no thyromegaly Respiratory: no respiratory distress Auscultation: lungs clear to auscultation bilaterally Cardiovascular: Rate/Rhythm: regular rate and regular rhythm; not tachycardic Heart Sounds: normal S1 and normal S2; no murmur Extremities: no edema Gastrointestinal (Abdomen): Inspection/Auscultation: normal bowel sounds; abdomen not distended Percussion/Palpation: abdomen soft; abdomen nontender Musculoskeletal: No acute arthritis involving any of the joint Neurologic: normal touch/pain/proprioception, moves all extremities and + focal motor deficit Psychiatric: A+Ox3, euthymic affect Lymphatic: no cervical or axillary lymphadenopathy Results & Data Results & Data Vital Signs (Past 12 Hours) Vital Signs Temp Pulse Pulse Resp BP BP Pulse Ox 02/16/23 08:00 73 02/16/23 07:39 36.8 C 82 18 106/63 96 02/16/23 00:00 70 02/16/23 04:00 36.6 C 59 L 19 126/70 99 02/16/23 00:00 O2 Del Method 02/16/23 08:00 02/16/23 07:39 Room Air 02/16/23 00:00 02/16/23 04:00 Room Air 02/16/23 00:00 Room Air Laboratory Results Short CBC 02/15/23 02/16/23 Range/Units 17:06 05:36 WBC 6.69 6.00 (4.8-10.8) K/ul Hgb 8.4 L 8.4 L (14.0-18.0) g/dl Hct 24.0 L 24.3 L (42.0-52.0) % Plt Count 199 196 (130-400) K/uL BMP 02/16/23 05:36 Sodium 141 Potassium 3.6 Chloride 110 H Carbon Dioxide 26 BUN 6 Creatinine 0.68 Glucose 89 Calcium 8.4 L Medications Administered Current Inpatient Medications Acetaminophen (Acetaminophen 325 Mg Tab) 650 mg PO Q4H PRN PRN Reason: Pain or Fever Stop: 03/14/23 18:50 Last Admin: 02/14/23 07:56 Dose: 650 mg Atorvastatin Calcium (Atorvastatin 40 Mg Tab) 80 mg PO [facility] Stop: 03/15/23 08:59 Last Admin: 02/16/23 08:35 Dose: 80 mg Ezetimibe (E[facility]imibe 10 Mg Tablet) [facility] [place]: 03/15/23 08:59 Last Admin: 02/16/23 08:35 Dose: 10 mg Melatonin (Melatonin 3 Mg Tab) 3 mg PO HS PRN PRN Reason: Sleep Stop: 03/15/23 20:44 Last Admin: 02/14/23 21:53 Dose: 3 mg Miscellaneous (Remove Nicoderm Patch) 1 each N/A DAILY@0859 [facility] Stop: 03/15/23 08:58 Last Admin: 02/16/23 10:38 Dose: 1 each Morphine Sulfate (Morphine Sulfate 2 Mg/Ml Carp) 2 mg IV Q4H PRN PRN Reason: Pain Stop: 02/26/23 19:51 Nicotine (Nicotine 21 Mg/24 Hr Tdsy) 21 mg [facility] [place] Stop: 03/14/23 18:50 Last Admin: 02/16/23 08:40 Dose: Not Given Ondansetron HCl (Ondansetron Inj 2 Mg/Ml 2 Ml Vial) 4 mg IV Q6H PRN PRN Reason: Nausea Stop: 03/14/23 18:50 Pantoprazole Sodium (Pantoprazole 40 Mg Tab) 40 mg PO BID [facility] Stop: 03/18/23 20:59
[2023-02-16] MEDS ORDERED: PANTOprazole 40 MG TAB PO SCH (21:00)
--- NOTE | 2023-02-17 08:42 | Discharge Summary ---
Date of Service February 16, 2023 Admission HPI Per Admitting Provider Patient is 67 y/o M with PMH CAD, PVD s/p stent RLE, HTN, dyslipidemia, COPD, tobacco use presented to ER with c/o melena today. Patient states yesterday was having lightheadedness, worse with standing. Also experiencing exertional SOB for the past day. Denies syncope. Patient states this morning had several episodes of loose black stools. Also having epigastric abdominal discomfort. Patient states has been having intermittent epigastric discomfort however seems worse the past 1 to 2 days. He states that he uses 800mg ibuprofen 4 times a week. Is also on aspirin 81mg, Plavix, Pletal. Drinks 2 beers once week. Reports has been under a lot of stress recently. History 01/13/23: Fem/pop artery revascularization with stent and angioplasty. Denies fever/chills, diaphoresis, N/V, hematochezia, OLMOS, vision changes, chest pain, orthopnea, palpitations, cough, sore throat, rhinorrhea, paresthesias, extremity weakness, extremity edema, rashes, urinary symptoms. Admission Exam Per Admitting Provider Physical Exam: General: no distress, WDWN Head: normocephalic, atraumatic Eyes: conjunctiva non-injected, anicteric ENT: normal inspection external ears, nose, mucous membranes moist Neck: supple, trachea midline Lungs: clear, no respiratory distress, no wheezing/rhonchi/rales CV: RRR, no murmur, no pretibial edema Abd: normal BS, soft, slight epigastric tenderness to palpation without guarding Ext: no cyanosis, no calf tenderness Neuro: A&O x 3, no focal deficits noted, normal affect Skin: pale, warm, dry Principal Diagnosis Upper GI bleed, duodenal ulcer, hypertension, PVD, stable COPD Discharge Exam Sitting on a chair without any acute distress Constitutional well developed, well nourished and average body habitus; not ill appearing Eyes PERRL, conjunctivae normal, anicteric sclerae ENMT external ear and nose normal, oropharynx normal Neck trachea midline, no thyromegaly Respiratory no respiratory distress Auscultation: lungs clear to auscultation bilaterally Cardiovascular Rate/Rhythm: regular rate and regular rhythm; not tachycardic Heart Sounds: normal S1 and normal S2; no murmur Extremities: no edema Gastrointestinal (Abdomen) Inspection/Auscultation: normal bowel sounds; abdomen not distended Percussion/Palpation: abdomen soft; abdomen nontender Neurologic normal touch/pain/proprioception, moves all extremities and + focal motor deficit Psychiatric A+Ox3, euthymic affect Lymphatic no cervical or axillary lymphadenopathy Discharge Data Allergies Allergy/AdvReac Type Severity Reaction Status Date / Time No Known Allergies Allergy Verified 02/12/23 14:58 Consultations 02/12/23 15:02 ED Decision to Admit Stat 02/13/23 08:00 Consult Gastroenterology Routine Procedures Performed Operation Date: 02/15/23 17:15 Actual Procedures p EGD Hemostasis - Carley Skinner MD Ordered Studies 02/12/23 12:28 CT abd pelvis IV con only Stat CT head/brain wo con Stat Hospital Course (1) Acute upper GI bleed: Patient is 67 y/o M with PMH CAD, PVD s/p stent RLE, HTN, dyslipidemia, COPD, tobacco use presented to ER with c/o melena today, exertional shortness of breath, dizziness x1 day. Suspected UGI bleed. In ER afebrile, P: 80-100, BP 103/65, 100% on room air. H/H: 10.3/29, BUN: 55. Hgb was 15 and 11/18/2020 Hemoglobin trending down 10.3->8.6->8.1->7.7. CT abdomen pelvis unremarkable Received 1 unit of of PRBC and continue to trend hemoglobin and transfuse as indicated Continue IV fluids Continue IV PPI drip. Continue to hold aspirin/Plavix No further bowel movements since admission. Seen by GI- continue PPI Hemoglobin remains stable at 8.3 as of 02/14/2023 Appreciate GI input and recommendation for EGD on Wednesday Status post EGD-noted to have oozing duodenal ulcer with a visible vessel which was treated with a monopolar probe and padlock clip was placed Will need to have Protonix IV until tomorrow before he can be discharged Advised to have clears orally today and tomorrow and then full liquid for 2 days and after that regular diet Plavix can be started on third day and aspirin may be next week or so Remains stable with hemoglobin at 8.4. No more melena and/or hematochezia Will be discharged home this afternoon and he will start his aspirin and Plavix on CT A/P 1. No bowel wall thickening or obstruction. 2. Normal appendix. 3. No hydronephrosis. 4. Prostatomegaly. (2) Symptomatic anemia: As above (3) Peripheral vascular disease: 01/13/23:Fem/pop artery revascularization with stent and angioplasty. Hold aspirin, Plavix Continue Pletal, atorvastatin (4) HTN (hypertension): Hold lisinopril, HCTZ, diltiazem with suspected current GI bleed and low BP. We will resume as indicated Blood pressure remains stable (5) Dyslipidemia: Continue atorvastatin, Zetia (6) COPD (chronic obstructive pulmonary disease): Not on medication No acute exacerbation CXR: No acute infiltrate (7) Tobacco use: Smoking cessation encouraged. States he is planning to quit smoking. Nicotine patch DVT Prophylaxis- SCDs. Chemoprophylaxis contraindicated in setting of GI bleed requiring transfusion Disposition- trending H&H, receiving blood transfusion and IVF. Plan for EGD per GI Likely discharge tomorrow Total Time Total Time Spent Total Time Spent (In Minutes): 35 minutes Discharge Plan Discharge Items Patient Disposition: Home - Self-Care Reason For Visit: GI BLEED Discharge Diagnosis: Upper GI bleed, duodenal ulcer, hypertension, PVD, stable COPD Condition on Discharge: Fair Activity: Resume your previous activity Non-emergency contact: Primary Care Provider Call non-emergency contact if: you have any medication questions and your symptoms worsen Follow-up/Referrals: Anastacio Shabazz DO [Primary Care Provider] - (Date & Time 02/23/2023 10:40 AM Provider Anastacio Shabazz DO Department Family [facility] ) Diet: Low Sodium (2gm) Diet Comment: Full liquid diet for the next day or 2 and advance as tolerated Addtl Attending Provider Instructions: Please take precaution to avoid falls Do not take any NSAIDs like naproxen, Aleve, ibuprofen etc You can start taking aspirin and Plavix from To continue Protonix twice daily for 2 months continuously Please keep appointment with your healthcare providers Pending Studies at Discharge: No Stand-Alone Forms: My [employer], Smoking Cessation Medications and DC Order Prescriptions: New pantoprazole 40 mg Tablet,Delayed Release (Dr/Ec) 40 mg PO BID 30 Days Qty: 60 0RF nicotine [Nicoderm CQ] 21 mg/24 hr Patch 24 Hour 21 mg transdermal QAM 30 Days Qty: 30 0RF Continued cilostazol 100 mg tablet 100 mg PO BID atorvastatin 80 mg tablet 80 mg PO QAM lisinopril-hydrochlorothiazide 20-12.5 mg tablet 1 tab PO QAM diltiazem HCl 180 mg capsule,extended release 24hr 180 mg PO QAM clopidogrel 75 mg tablet 75 mg PO QAM ezetimibe 10 mg tablet 10 mg PO QAM aspirin 81 mg Tablet 81 mg PO DAILY Discharge Orders: Discharge Order (Routine); Ordered 02/16/23 Ordered By: Elian Matos Admission Data Admit Date/Time: 02/12/23 16:06 Attending Provider: Elian Matos Admit Provider: Miles Camacho Primary Care Provider: Anastacio Shabazz Other Providers: Miles Camacho ; Akash Whittaker ; Meng Kuo Other Interventions: Discharge Summary Assessment (RN) Last Done: 02/16/23 14:24
--- NOTE | 2023-02-17 10:01 | Coding Query ---
Symptomatic anemia and GI blood loss in chart ANEMIA To promote full compliance with coding requirements relating to patient care, physician participation is requested in all cases of general service officer uncertainty. Please assist us with the question(s) below: Coding Question(s): The record reflects the following clinical findings: Symptomatic Anemia. If these findings are indicative of anemia, please specify the known or suspected type by placing an "X" within the parenthesis (x). If other, please document type. Examples are: (+ ) Acute blood loss anemia ( ) Acute Postoperative blood loss anemia ( ) Acute postoperative anemia due to dilutional fluids ( ) Chronic blood loss anemia ( ) Anemia of chronic disease ( ) Aplastic anemia ( ) Anemia due to renal disease ( ) Anemia in neoplastic disease ( ) Iron deficient anemia ( ) Anemia, unspecified or other ( ) Other: (please specify) Thank you Adrianna HUTTON
== END 2023-02-16 16:08 | disposition home or self-care (01) | DRG 378 ==
LOC: ED 11:37 → SUATTDRO 16:06 → 2W 16:06

== ENCOUNTER 2024-03-08 22:04 | Inpatient (IN) ==
--- NOTE | 2024-03-08 22:27 | Emergency Department Note ---
History of Present Illness General Chief complaint: Syncope Stated complaint: SYNCOPE, HIT HEAD, REPEATING QUESTIONS Time Seen by Provider: 03/08/24 22:17 History of Present Illness Maximum Pain Intensity: 10 This is a 68-year-old male presenting to the emergency department via EMS for evaluation of syncope, fall, and head injury. The patient was drinking alcohol this evening at the [facility] at onset of symptoms. The patient did have loss of consciousness with the fall as well as vomiting. Patient is perseverating on arrival to the ER. Patient donated blood today which may have contributed to his symptoms. The patient reports significant pain in the back of his neck. He did receive 500 mL normal saline prehospital. He rates his discomfort a 07/06. Home Medications Medication Instructions Recorded Confirmed Type aspirin 81 mg tablet 81 mg PO QA 02/12/23 01/05/24 History atorvastatin 80 mg tablet 80 mg PO QA 02/12/23 01/05/24 History cilostazol 100 mg tablet 100 mg PO BID 02/12/23 01/05/24 History diltiazem HCl 180 mg 180 mg PO [facility] 02/12/23 01/05/24 History capsule,extended release 24 hr ezetimibe 10 mg tablet 10 mg PO QAM 02/12/23 01/05/24 History ferrous sulfate 325 mg (65 mg 325 mg PO BID 12/08/23 01/05/24 History iron) tablet (FeroSul) Allergies Allergy/AdvReac Type Severity Reaction Status Date / Time No Known Allergies Allergy Verified 01/05/24 10:30 Past Med/Surg History Problem List (Updated 03/09/24 @ 03:47 by Vu Cho PA-C) Acute neck pain (Acute) Alcohol intoxication (Acute) Syncope and collapse (Acute) Closed head injury (Acute) Duodenal ulcer Symptomatic anemia Acute upper GI bleed GI bleed Near syncope (Acute) Fatigue (Acute) Anemia (Acute) Weakness (Acute) Melena (Acute) Acute GI bleeding (Acute) Postoperative state (Acute 01/29/14) Neck pain (Acute 01/25/13) Lumbar stenosis with neurogenic claudication Encounter for pre-operative examination Medical History History of bleeding peptic ulcer hx bleeding stomach ulcer , January 2023. COPD (chronic obstructive pulmonary disease) denies Tobacco use Dyslipidemia HTN (hypertension) Peripheral vascular disease Surgical History Hx of cataract extraction History of lung surgery for bleb 30 yr ago History of cardiac cath early 2022/pt can't remember why/denies stents "no issue" History of neck surgery x2 - mild limitation w/rom, can't sleep on stomach. History of colonoscopy History of endoscopy History of spinal fusion History of revascularization procedure of lower extremity 01/13/2023 fem/pop artery revascularization with stent angioplasty. [place] Miki [place] [facility] [place] History Other Heart disease Stroke Social History Smoking Status: Current every day smoker Tobacco Type: Cigarettes Cigarettes Per Day: 1ppd/advised npo; Second Hand Exposure: No; Do You Dip or Chew Tobacco: No; Hx Alcohol Use: Yes ("moderate") Alcohol type: beer, wine and hard liquor Hx Substance Use: No Preferred Language: Jamaican Communication Ability: Effective Band Head Saw Operator Required: No Beliefs That Will Affect Care: None Current Living Situation: Spouse Current Living Situation Comment: and daughter Feels Safe at Home: Yes Assistive Devices: Denture - Upper and Denture - Lower Review of Systems A total of 10 systems reviewed and were otherwise negative Physical Exam Vital Signs Vital Signs - 24 hr 03/08/24 21:57 03/08/24 22:12 03/08/24 22:21 Temperature 36.4 C L Temperature Source Oral Pulse Rate 69 Pulse Rate from SpO2 Sensor Respiratory Rate 20 Blood Pressure 136/70 Blood Pressure Mean 92 Pulse Oximetry 96 96 96 Oxygen Delivery Method Room Air Room Air Room Air Sepsis Recent Fever Within 48 Hours No Sepsis New/Unexplained Change in Mental Status No Sepsis Action Taken by Nursing No Action Required 03/08/24 22:23 03/08/24 23:03 03/08/24 23:15 Temperature Temperature Source Pulse Rate 61 60 65 Pulse Rate from SpO2 Sensor 55 L 61 Respiratory Rate 20 24 Blood Pressure Blood Pressure Mean Pulse Oximetry 93 95 Oxygen Delivery Method Sepsis Recent Fever Within 48 Hours Sepsis New/Unexplained Change in Mental Status Sepsis Action Taken by Nursing 03/08/24 23:24 03/08/24 23:39 03/08/24 23:42 Temperature Temperature Source Pulse Rate 66 67 64 Pulse Rate from SpO2 Sensor 61 63 63 Respiratory Rate 22 26 H 22 Blood Pressure Blood Pressure Mean Pulse Oximetry 94 96 95 Oxygen Delivery Method Sepsis Recent Fever Within 48 Hours Sepsis New/Unexplained Change in Mental Status Sepsis Action Taken by Nursing 03/08/24 23:54 03/09/24 00:00 03/09/24 00:00 Temperature Temperature Source Pulse Rate 61 61 Pulse Rate from SpO2 Sensor 61 60 Respiratory Rate 21 17 Blood Pressure 116/68 Blood Pressure Mean 87 Pulse Oximetry 95 95 Oxygen Delivery Method Sepsis Recent Fever Within 48 Hours Sepsis New/Unexplained Change in Mental Status Sepsis Action Taken by Nursing 03/09/24 02:15 Temperature Temperature Source Pulse Rate 70 Pulse Rate from SpO2 Sensor Respiratory Rate Blood Pressure Blood Pressure Mean Pulse Oximetry Oxygen Delivery Method Sepsis Recent Fever Within 48 Hours Sepsis New/Unexplained Change in Mental Status Sepsis Action Taken by Nursing VITALS: Vitals are noted on the nurse's note and reviewed by myself. Vital signs stable. GENERAL: Intoxicated appearing white male in moderate discomfort secondary to his stated complaint. He has a hard cervical spine collar. HEAD: Small hematoma noted to the left posterior occiput without significant laceration. No Moreau sign raccoon eyes. EARS: External ear normal. External auditory canals clear, tympanic membranes pearly lucero without erythema or effusion bilaterally. EYES: Pupils equal round and reactive to light and accommodation. Conjunctivae without injection, sclerae without icterus. Extraocular movements intact. NECK: Positive tenderness throughout the posterior cervical spine. HEART: Regular rate and rhythm without murmurs gallops or rubs. LUNGS: Clear to auscultation bilaterally without wheezes, rales or rhonchi. No retractions or accessory muscle use. ABDOMEN: Positive normal bowel sounds x 4. Soft, nontender, without masses or organomegaly. No guarding or rebound tenderness. MUSCULOSKELETAL: No muscle atrophy, erythema, or edema noted. Full range of motion in all extremities. NEURO: Patient was alert and oriented to person place and time. CN II through XII grossly intact. Patient is perseverating on initial presentation, but this seems to have improved. Course Administered Medications Discontinued Medications Hydromorphone HCl (Hydromorphone Inj 0.5 Mg/0.5 Ml Syr) 0.5 mg IV NOW STA Stop: 03/08/24 23:43 Last Admin: 03/09/24 00:04 Dose: 0.5 mg Documented By: KG Morphine Sulfate (Morphine Sulfate 4 Mg/Ml 1 Ml Carp\\Vial) 4 mg IV Q30M PRN PRN Reason: Pain Stop: 03/22/24 22:20 Last Admin: 03/08/24 23:36 Dose: 4 mg Documented By: Admin: 03/08/24 22:36 Dose: 4 mg Documented By: KG Ondansetron HCl (Ondansetron Inj 2 Mg/Ml 2 Ml Vial) 4 mg IV NOW STA Stop: 03/08/24 22:22 Last Admin: 03/08/24 22:36 Dose: 4 mg Documented By: KG Medical Decision Making Differential Diagnosis Differential diagnosis: Etiologies such as tendon or ligamentous injury, contusion, fracture, cervical/vertebral injury, dislocation, intra-abdominal process, pneumothorax, intrathoracic trauma, intracranial injury, soft tissue injury, neurologic process, as well as other traumatic pathologies were entertained. Laboratory Data 03/08/24 22:23 03/08/24 22:23 Lab Results 03/08/24 Range/Units 22:23 WBC 6.90 (4.8-10.8) K/ul RBC 4.63 L (4.70-6.10) M/uL Hgb 14.9 (14.0-18.0) g/dl Hct 42.3 (42.0-52.0) % MCV 91.4 (80.0-100.0) fL MCH 32.2 (25.0-34.0) pg MCHC 35.2 (32.0-36.0) g/dL RDW Std Deviation 40.9 (36.4-46.3) fL RDW Coeff of Maximo 12.3 (11.5-14.5) % Plt Count 255 (130-400) K/uL MPV 10.2 (9.4-12.4) fL Immature Gran % (Auto) 0.3 % Neut % (Auto) 50.4 % Lymph % (Auto) 39.1 % [place] % (Auto) 8.0 % Eos % (Auto) 1.3 % Baso % (Auto) 0.9 % Neut # (Auto) 3.48 (1.40-6.50) K/uL Lymph # (Auto) 2.70 (1.20-3.40) K/uL [place] # (Auto) 0.55 (0.11-0.59) K/uL Eos # (Auto) 0.09 (0.00-0.50) K/uL Baso # (Auto) 0.06 (0.00-0.20) K/uL Immature Gran # (Auto) 0.02 (0.01-0.20) K/uL PT 10.8 (9.0-12.0) Seconds INR 1.0 (0.9-1.1) APTT 22 (21-31) Seconds PTT Ratio 0.8 Sodium 136 (136-145) mmol/L Potassium 3.9 (3.5-5.1) mmol/L Chloride 103 (98-107) mmol/L Carbon Dioxide 26 (21-32) mmol/L Anion Gap 7 (3-11) BUN 11 (6-23) mg/dl Creatinine 0.85 (0.6-1.4) mg/dl Est Cr Clr Drug Dosing 96.0 ml/min Est GFR ( Amer) 103.8 ml/min Est GFR (Non-Af Amer) 89.5 ml/min BUN/Creatinine Ratio 12.9 (10-20) Glucose 101 H (70-99(Fasting)) mg/dl Calcium 9.0 (8.6-10.3) mg/dl Magnesium 1.8 (1.7-2.4) mg/dl Total Bilirubin 0.6 (0.2-1.0) mg/dl AST 23 (13-39) U/L ALT 33 (7-52) U/L Alkaline Phosphatase 93 (34-104) U/L Total Creatine Kinase 55 (30-223) U/L Troponin I High Sens 8.0 (0-20) pg/ml Total Protein 6.7 (6.0-8.3) gm/dl Albumin 4.4 (3.4-5.0) gm/dl Globulin 2.3 L (2.5-4.0) gm/dl Albumin/Globulin Ratio 1.9 (0.9-2) Lipase 23 (11-82) U/L TSH 4.831 H (0.300-4.500) uIu/ml Ethyl Alcohol mg/dL 82.1 H (<10.0) mg/dl Imaging Data Radiologist's Impression: Abdomen/Pelvis CT 03/08/24 22:21 Exam(s): CT ABDOMEN + PELVIS Without Contrast EXAM: CT Abdomen and Pelvis Without Intravenous Contrast CLINICAL HISTORY: Reason for exam: syncope, fall, head/neck pain. TECHNIQUE: Axial computed tomography images of the abdomen and pelvis without intravenous contrast. CTDI is 66.02 mGy and DLP is 3006.22 mGy-cm. Automated exposure control was utilized for the study. A dose lowering technique was utilized adhering to the principles of ALARA. COMPARISON: No relevant prior studies available. FINDINGS: Lung bases: Unremarkable. No mass. No consolidation. ABDOMEN: Liver: Subcentimeter left hepatic lobe cyst. No evidence of hepatic injury. Gallbladder and bile ducts: Unremarkable. No calcified stones. No ductal dilation. Pancreas: Unremarkable. No ductal dilation. No evidence of pancreatic injury. Spleen: Unremarkable. No evidence of splenic injury. Adrenals: Unremarkable. No evidence of adrenal injury. Kidneys and ureters: Unremarkable. No evidence of renal injury. No hydronephrosis or radiopaque stones. Stomach and bowel: Unremarkable. No mucosal thickening. No bowel obstruction, inflammation, or injury. PELVIS: Appendix: Normal appendix. Bladder: Unremarkable. No stones. Reproductive: Unremarkable as visualized. ABDOMEN and PELVIS: Intraperitoneal space: Unremarkable. No free fluid or free air. Bones/joints: No acute fracture or dislocation. Posterior decompression, posterior hardware fixation, and interbody fusion at L5-S1. Soft tissues: Unremarkable. Vasculature: Atherosclerosis without aortic aneurysm. Lymph nodes: Unremarkable. No enlarged lymph nodes. IMPRESSION: No acute findings in the abdomen or pelvis. Electronically signed by: Olesya Luke M.D. 03/08/24 23:[address] 03/08/24 22:21 Exam(s): CT C SPINE EXAM: CT Cervical Spine Without Intravenous Contrast CLINICAL HISTORY: Reason for exam: syncope, fall, head/neck pain. TECHNIQUE: Axial computed tomography images of the cervical spine without intravenous contrast. CTDI is 66.02 mGy and DLP is 3006.22 mGy-cm. Automated exposure control was utilized for the study. A dose lowering technique was utilized adhering to the principles of ALARA. COMPARISON: 01/25/13 FINDINGS: Bones are osteopenic. Vertebral body height and alignment are maintained. There is no acute fracture or traumatic subluxation. There is anterior cervical discectomy and fusion and C5-C7, without evidence of hardware complication. Compared to prior CT, interbody fusion at the C6-C7 level is new. There is multilevel disc, facet, and uncovertebral joint degeneration. Disc bulges/disc-osteophyte complexes produce mild to moderate multilevel central spinal canal stenosis. There are varying degrees of bilateral foraminal narrowing. Lung apices demonstrate paraseptal emphysema. There is no prevertebral soft tissue swelling. There are bilateral carotid calcifications. IMPRESSION: No acute osseous findings. Electronically signed by: Olesya Luke M.D. 03/08/24 23:[address] 03/08/24 22:21 Exam(s): CT CHEST Without Contrast EXAM: CT Chest Without Intravenous Contrast CLINICAL HISTORY: Reason for exam: syncope, fall. TECHNIQUE: Axial computed tomography images of the chest without intravenous contrast. CTDI is 66.02 mGy and DLP is 3006.22 mGy-cm. Automated exposure control was utilized for the study. A dose lowering technique was utilized adhering to the principles of ALARA. COMPARISON: No relevant prior studies available. FINDINGS: Lungs: Biapical paraseptal emphysema. Centrilobular emphysema. No consolidation or mass. Pleural space: Unremarkable. No pneumothorax. No significant effusion. Heart: Coronary artery atherosclerosis. Mild cardiomegaly. No pericardial effusion. Bones/joints: Partially imaged anterior cervical discectomy and fusion in the lower cervical spine. Disc degeneration in the thoracic spine. No acute fracture or dislocation. Soft tissues: Unremarkable. Vasculature: No aortic aneurysm. Normal caliber main pulmonary artery. Lymph nodes: Unremarkable. No adenopathy. IMPRESSION: 1. No acute traumatic findings. 2. Emphysema, an independent risk factor for lung cancer. Consider patient enrollment in low-dose cancer screening. Electronically signed by: Olesya Luke M.D. 03/08/24 23:[address] 03/08/24 22:21 Exam(s): CT HEAD Without Contrast EXAM: CT Head Without Intravenous Contrast CLINICAL HISTORY: Reason for exam: syncope, fall, head/neck pain. TECHNIQUE: Axial computed tomography images of the head/brain without intravenous contrast. CTDI is 66.02 mGy and DLP is 3006.22 mGy-cm. Automated exposure control was utilized for the study. A dose lowering technique was utilized adhering to the principles of ALARA. COMPARISON: 02/12/23 FINDINGS: Brain: Generalized parenchymal volume loss. Periventricular and deep cerebral white matter hypoattenuation suggesting chronic small vessel ischemic change. Lucero-white matter differentiation maintained. No hemorrhage, mass effect, parenchymal edema, or midline shift. Ventricles: Unremarkable. No hydrocephalus. Bones/joints: Unremarkable. No acute fracture. Soft tissues: Unremarkable. Vasculature: Intracranial atherosclerosis. Sinuses: Unremarkable as visualized. Mastoid air cells: Unremarkable as visualized. No mastoid effusion. Orbits: Bilateral lens replacements. IMPRESSION: No acute intracranial process. Electronically signed by: Olesya Luke M.D. 03/08/24 23:54 PM MDM Narrative Physical exam and history were performed. Nursing notes, EMR, and Medication List were personally reviewed. No social concerns were identified as barriers to patients care. Patient appears to have had syncopal versus fall event this evening with subsequent head injury and loss of consciousness. Patient was perseverating on arrival to the ER. IV access was established and labs were obtained. He was given IV morphine and ultimately IV Dilaudid for pain control. Patient was sent to CT scan for trauma studies. Patient's blood work is as above and was reviewed. He does not have a significantly elevated white blood cell count, gross anemia, bandemia, or significant electrolyte imbalance. Transaminases are not diagnostic. CT scans were performed and independently reviewed by myself and radiology showing no acute process. On reevaluation the patient was able to rest very comfortably while laying flat. We did attempt to the patient and determine if he is ambulatory. The patient remains with significant pain primarily throughout his neck on the left side. He is without neurologic deficit and GCS is 15. He is moving arms and legs without difficulty. Patient was given additional analgesia, and continues to remain quite uncomfortable. At this time the patient does not seem well for discharge home. Escalation of care is necessary. Case was discussed with the on-call hospitalist who agreed to evaluate the patient here in the ER. Please see their dictation for further patient course, plan, disposition. The chart was completed utilizing [email or web address] Speech Voice Recognition Software. Grammatical errors, random word insertions, pronoun errors, and incomplete sentences are an occasional consequence of this system due to software limitations, ambient noise, and hardware issues. Any formal questions or concerns about the content, text, or information contained within the body of this dictation should be directly addressed to the provider for clarification. . Impression & Plan Closed head injury, Syncope and collapse, Alcohol intoxication, Acute neck pain Discharge Plan Visit Data Chief Complaint: Syncope Stated Complaint: SYNCOPE, HIT HEAD, REPEATING QUESTIONS ED Provider: Sarah Bernal ED Midlevel Provider: Vu Cho Discharge Problem: Closed head injury, Syncope and collapse, Alcohol intoxication, Acute neck pain Forms Stand Alone Forms: My [facility] Prescriptions Prescriptions: No Action cilostazol 100 mg tablet 100 mg PO BID atorvastatin 80 mg tablet 80 mg PO QAM diltiazem HCl 180 mg capsule,extended release 24hr 180 mg PO QAM ezetimibe 10 mg tablet 10 mg PO QAM aspirin 81 mg Tablet 81 mg PO QAM ferrous sulfate [FeroSul] 325 mg (65 mg iron) Tablet 325 mg PO BID Referrals Referrals: Anastacio Shabazz DO [Outside Practitioners] -
[2024-03-08] MEDS: ONDANSETRON INJ 2 MG/ML 2 ML VIAL IV STA (22:36)
[2024-03-08] MEDS: MoRPHine SULFATE 4 MG/ML 1 ML CARP\\VIAL IV PRN (22:36)
[2024-03-08 23:10] LABS: Basophils # (auto) 0.06 K/uL (0.00-0.20); Basophils % (auto) 0.9 %; Eosinophils # (auto) 0.09 K/uL (0.00-0.50); Eosinophils % (auto) 1.3 %; Hematocrit (blood only) 42.3 % (42.0-52.0); Hemoglobin 14.9 g/dl (14.0-18.0); Immature Granulocytes # (auto) 0.02 K/uL (0.01-0.20); Immature Granulocytes % (auto) 0.3 %; Lymphocytes % (auto) 39.1 %; Mean Corpuscular Hemoglobin 32.2 pg (25.0-34.0); Mean Corpuscular Hgb Conc 35.2 g/dL (32.0-36.0); Mean Corpuscular Volume 91.4 fL (80.0-100.0); Mean Platelet Volume 10.2 fL (9.4-12.4); Monocytes # (auto) 0.55 K/uL (0.11-0.59); Neutrophils # (auto) 3.48 K/uL (1.40-6.50); Neutrophils % (auto) 50.4 %; Platelet Count 255 K/uL (130-400); RDW Coefficient of Variation 12.3 % (11.5-14.5); RDW Standard Deviation 40.9 fL (36.4-46.3); Red Blood Count 4.63 M/uL (4.70-6.10)
[2024-03-08 23:30] LABS: Albumin Globulin Ratio 1.9 (0.9-2); Albumin Level 4.4 gm/dl (3.4-5.0); BUN Creatinine Ratio 12.9 (10-20); Bilirubin,Total 0.6 mg/dl (0.2-1.0); Est GFR (African American) 103.8 ml/min; Est GFR (Non-African American) 89.5 ml/min; Globulin 2.3 gm/dl (2.5-4.0); Magnesium 1.8 mg/dl (1.7-2.4); Potassium 3.9 mmol/L (3.5-5.1); Total Protein 6.7 gm/dl (6.0-8.3)
[2024-03-08 23:38] LABS: Partial Thromboplastin Ratio 0.8; Partial Thromboplastin Time 22 Seconds (21-31); Prothrombin Time 10.8 Seconds (9.0-12.0)
--- NOTE | 2024-03-08 23:52 | CT Scan Report ---
Exam(s): CT CHEST Without Contrast EXAM: CT Chest Without Intravenous Contrast CLINICAL HISTORY: Reason for exam: syncope, fall. TECHNIQUE: Axial computed tomography images of the chest without intravenous contrast. CTDI is 66.02 mGy and DLP is 3006.22 mGy-cm. Automated exposure control was utilized for the study. A dose lowering technique was utilized adhering to the principles of ALARA. COMPARISON: No relevant prior studies available. FINDINGS: Lungs: Biapical paraseptal emphysema. Centrilobular emphysema. No consolidation or mass. Pleural space: Unremarkable. No pneumothorax. No significant effusion. Heart: Coronary artery atherosclerosis. Mild cardiomegaly. No pericardial effusion. Bones/joints: Partially imaged anterior cervical discectomy and fusion in the lower cervical spine. Disc degeneration in the thoracic spine. No acute fracture or dislocation. Soft tissues: Unremarkable. Vasculature: No aortic aneurysm. Normal caliber main pulmonary artery. Lymph nodes: Unremarkable. No adenopathy. IMPRESSION: 1. No acute traumatic findings. 2. Emphysema, an independent risk factor for lung cancer. Consider patient enrollment in low-dose cancer screening. Electronically signed by: Olesya Luke M.D. 03/08/24 23:51 PM
--- NOTE | 2024-03-08 23:54 | CT Scan Report ---
Exam(s): CT C SPINE EXAM: CT Cervical Spine Without Intravenous Contrast CLINICAL HISTORY: Reason for exam: syncope, fall, head/neck pain. TECHNIQUE: Axial computed tomography images of the cervical spine without intravenous contrast. CTDI is 66.02 mGy and DLP is 3006.22 mGy-cm. Automated exposure control was utilized for the study. A dose lowering technique was utilized adhering to the principles of ALARA. COMPARISON: 01/25/13 FINDINGS: Bones are osteopenic. Vertebral body height and alignment are maintained. There is no acute fracture or traumatic subluxation. There is anterior cervical discectomy and fusion and C5-C7, without evidence of hardware complication. Compared to prior CT, interbody fusion at the C6-C7 level is new. There is multilevel disc, facet, and uncovertebral joint degeneration. Disc bulges/disc-osteophyte complexes produce mild to moderate multilevel central spinal canal stenosis. There are varying degrees of bilateral foraminal narrowing. Lung apices demonstrate paraseptal emphysema. There is no prevertebral soft tissue swelling. There are bilateral carotid calcifications. IMPRESSION: No acute osseous findings. Electronically signed by: Olesya Luke M.D. 03/08/24 23:54 PM
--- NOTE | 2024-03-08 23:55 | CT Scan Report ---
Exam(s): CT HEAD Without Contrast EXAM: CT Head Without Intravenous Contrast CLINICAL HISTORY: Reason for exam: syncope, fall, head/neck pain. TECHNIQUE: Axial computed tomography images of the head/brain without intravenous contrast. CTDI is 66.02 mGy and DLP is 3006.22 mGy-cm. Automated exposure control was utilized for the study. A dose lowering technique was utilized adhering to the principles of ALARA. COMPARISON: 02/12/23 FINDINGS: Brain: Generalized parenchymal volume loss. Periventricular and deep cerebral white matter hypoattenuation suggesting chronic small vessel ischemic change. Lucero-white matter differentiation maintained. No hemorrhage, mass effect, parenchymal edema, or midline shift. Ventricles: Unremarkable. No hydrocephalus. Bones/joints: Unremarkable. No acute fracture. Soft tissues: Unremarkable. Vasculature: Intracranial atherosclerosis. Sinuses: Unremarkable as visualized. Mastoid air cells: Unremarkable as visualized. No mastoid effusion. Orbits: Bilateral lens replacements. IMPRESSION: No acute intracranial process. Electronically signed by: Olesya Luke M.D. 03/08/24 23:54 PM
--- NOTE | 2024-03-08 23:56 | CT Scan Report ---
Exam(s): CT ABDOMEN + PELVIS Without Contrast EXAM: CT Abdomen and Pelvis Without Intravenous Contrast CLINICAL HISTORY: Reason for exam: syncope, fall, head/neck pain. TECHNIQUE: Axial computed tomography images of the abdomen and pelvis without intravenous contrast. CTDI is 66.02 mGy and DLP is 3006.22 mGy-cm. Automated exposure control was utilized for the study. A dose lowering technique was utilized adhering to the principles of ALARA. COMPARISON: No relevant prior studies available. FINDINGS: Lung bases: Unremarkable. No mass. No consolidation. ABDOMEN: Liver: Subcentimeter left hepatic lobe cyst. No evidence of hepatic injury. Gallbladder and bile ducts: Unremarkable. No calcified stones. No ductal dilation. Pancreas: Unremarkable. No ductal dilation. No evidence of pancreatic injury. Spleen: Unremarkable. No evidence of splenic injury. Adrenals: Unremarkable. No evidence of adrenal injury. Kidneys and ureters: Unremarkable. No evidence of renal injury. No hydronephrosis or radiopaque stones. Stomach and bowel: Unremarkable. No mucosal thickening. No bowel obstruction, inflammation, or injury. PELVIS: Appendix: Normal appendix. Bladder: Unremarkable. No stones. Reproductive: Unremarkable as visualized. ABDOMEN and PELVIS: Intraperitoneal space: Unremarkable. No free fluid or free air. Bones/joints: No acute fracture or dislocation. Posterior decompression, posterior hardware fixation, and interbody fusion at L5-S1. Soft tissues: Unremarkable. Vasculature: Atherosclerosis without aortic aneurysm. Lymph nodes: Unremarkable. No enlarged lymph nodes. IMPRESSION: No acute findings in the abdomen or pelvis. Electronically signed by: Olesya Luke M.D. 03/08/24 23:56 PM
[2024-03-09] MEDS: HYDROmorphone INJ 0.5 MG/0.5 ML SYR IV STA (00:04)
[2024-03-09] MEDS ORDERED: PROMETHAZINE HCL 6.25 MG in SODIUM CHLORIDE 0.9% 50 ML IV PRN (02:28)
[2024-03-09] MEDS ORDERED: LORazepam 0.5 MG in SYRINGE 0.25 ML IV STA (03:12)
--- NOTE | 2024-03-09 03:13 | History & Physical Report ---
Date of Service March 09, 2024 Assessment & Plan (1) Syncope and collapse: Plan: Likely secondary to orthostasis Patient noted to be hypotensive prior to ED transport. Rule out arrhythmia, structural cardiac pathology as etiology of syncope. Traumatic scalp wound secondary to head trauma. hx CAD, PVD as per records hypertension, BP slightly elevated secondary to discomfort hyperlipidemia, on statin and ezetimibe Rx. COPD, lung status at baseline PUD, on PPI ongoing tobacco abuse OBS Medical telemetry IVF TTE for additional syncope workup Hold antiplatelet Rx for now given traumatic scalp wound, resume if hemoglobin stable and bleeding resolved. Nicotine patch as needed DVT prophylaxis. TEDS, traumatic scalp bleed, SCDs contraindicated given history PAD Full code Patient requesting updates providers. Ellen Alesha Castañeda, contact #[phone]. Text document was generated using RSens voice recognition software. It may contain grammatical or spelling errors. Kindly contact undersigned for clarification of any documentation item in question. History of Present Illness Chief Complaint: Syncope, headache, neck pain Primary Care Provider: Dr. Fong History obtained from patient, family, and records. Medical history significant for CAD, rheumatic heart disease as per records, PVD, hypertension, hyperlipidemia, COPD, PUD, ongoing tobacco abuse. Last confinement January 2023 for UGIB secondary to duodenal ulcer. Patient fell at a gathering at the local [employer] headquarters last night after passing out while standing up. Posterior headache and bleeding wound noted along with neck pain. No arm or leg weakness. Denies chest pain, or SOB. No witnessed seizures, tongue biting or incontinence. Episode witnessed by patient's . Blood donation yesterday afternoon without complications as per patient. SBP 80s upon EMS arrival at the [facility]. 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 Allergies Allergy/AdvReac Type Severity Reaction Status Date / Time No Known Allergies Allergy Verified 03/09/24 09:19 Home Medications Medication Instructions Recorded Confirmed Type aspirin 81 mg tablet 81 mg PO QAM 02/12/23 03/09/24 History atorvastatin 80 mg tablet 80 mg PO QAM 02/12/23 03/09/24 History cilostazol 100 mg tablet 100 mg PO BID 02/12/23 03/09/24 History diltiazem HCl 180 mg 180 mg PO QAM 02/12/23 03/09/24 History capsule,extended release 24 hr ezetimibe 10 mg tablet 10 mg PO QAM 02/12/23 03/09/24 History Protonix 40 mg PO DAILY 03/09/24 03/09/24 History fluticasone 250 mcg-salmeterol 50 1 inh inhalation DAILY 03/09/24 03/09/24 History mcg/dose blistr powdr for inhalation fluticasone propionate 50 2 spray intranasal DAILY 03/09/24 03/09/24 History mcg/actuation nasal spray,suspension lisinopril 20 1 tab PO DAILY 03/09/24 03/09/24 History mg-hydrochlorothiazide 12.5 mg tablet Past Med/Surg History Problem List (Updated 03/09/24 @ 05:27 by Narciso Daemon) Acute neck pain (Acute) Alcohol intoxication (Acute) Syncope and collapse (Acute) Closed head injury (Acute) Duodenal ulcer Symptomatic anemia Acute upper GI bleed GI bleed Near syncope (Acute) Fatigue (Acute) Anemia (Acute) Weakness (Acute) Melena (Acute) Acute GI bleeding (Acute) Postoperative state (Acute 01/29/14) Neck pain (Acute 01/25/13) Lumbar stenosis with neurogenic claudication Encounter for pre-operative examination Medical History History of bleeding peptic ulcer hx bleeding stomach ulcer , January 2023. COPD (chronic obstructive pulmonary disease) denies Tobacco use Dyslipidemia HTN (hypertension) Peripheral vascular disease Surgical History Hx of cataract extraction History of lung surgery for bleb 30 yr ago History of cardiac cath early 2022/pt can't remember why/denies stents "no issue" History of neck surgery x2 - mild limitation w/rom, can't sleep on stomach. History of colonoscopy History of endoscopy History of spinal fusion History of revascularization procedure of lower extremity 01/13/2023 fem/pop artery revascularization with stent angioplasty. By Dr. Miki Garcia at [facility] Family History Other Heart disease Stroke Social History Smoking Status: Current every day smoker Tobacco Type: Cigarettes Cigarettes Per Day: 1ppd/advised npo; Second Hand Exposure: Yes; Do You Dip or Chew Tobacco: No; Tobacco Cessation Education Requested by Patient: No Hx Alcohol Use: Yes Alcohol type: beer Hx Substance Use: No Preferred Language: Slovenian Communication Ability: Effective Residential Team Leader Required: No Beliefs That Will Affect Care: None Current Living Situation: Spouse Current Living Situation Comment: and daughter Other Information That Helps Us Care for You: No Feels Safe at Home: Yes Safety Concerns: Feels Safe At This Time Assistive Devices: None Review of Systems Review of Systems: As per HPI, all other systems reviewed and negative Physical Exam Physical Exam: GENERAL: uncomfortable, no respiratory distress SKIN: Normal color, warm HEENT: [place] palpebral conjunctivae, no ptosis, dry buccal mucosa NECK : Decreased range of motion, minimal cervical tenderness CHEST : CTA, no tenderness HEART : RRR, no obvious murmurs ABDOMEN: Some distention, nontender EXTREMITIES : No LE swelling/tenderness, no other conspicuous deformities noted NEUROLOGIC : Coherent, no facial asymmetry, no other gross focality Results & Data Results & Data Vital Signs (Past 12 Hours) Vital Signs Temp Pulse Resp BP Pulse Ox O2 Del Method 03/09/24 02:15 70 03/09/24 00:00 61 17 95 03/09/24 00:00 116/68 03/08/24 23:54 61 21 95 03/08/24 23:42 64 22 95 03/08/24 23:39 67 26 H 96 03/08/24 23:24 66 22 94 03/08/24 23:15 65 24 95 03/08/24 23:03 60 20 93 03/08/24 22:23 61 03/08/24 22:21 96 Room Air 03/08/24 22:12 36.4 C L 69 20 136/70 96 Room Air 03/08/24 21:57 96 Room Air Laboratory Results Laboratory Results WBC 6.90 K/ul (4.8-10.8) 03/08/24 22:23 RBC 4.63 M/uL (4.70-6.10) L 03/08/24 22:23 Hgb 14.9 g/dl (14.0-18.0) 03/08/24 22:23 Hct 42.3 % (42.0-52.0) 03/08/24 22:23 MCV 91.4 fL (80.0-100.0) 03/08/24 22:23 MCH 32.2 pg (25.0-34.0) 03/08/24 22: MCHC 35.2 g/dL (32.0-36.0) 03/08/24 22: RDW Std Deviation 40.9 fL (36.4-46.3) 03/08/24 22:23 RDW Coeff of Maximo 12.3 % (11.5-14.5) 03/08/24 22:23 Plt Count 255 K/uL (130-400) 03/08/24 22: MPV 10.2 fL (9.4-12.4) 03/08/24 22:23 Immature Gran % (Auto) 0.3 % 03/08/24 22:23 Neut % (Auto) 50.4 % 03/08/24 22:23 Lymph % (Auto) 39.1 % 03/08/24 22:23 Mayes % (Auto) 8.0 % 03/08/24 22:23 Eos % (Auto) 1.3 % 03/08/24 22:23 Baso % (Auto) 0.9 % 03/08/24 22:23 Neut # (Auto) 3.48 K/uL (1.40-6.50) 03/08/24 22:23 Lymph # (Auto) 2.70 K/uL (1.20-3.40) 03/08/24 22:23 Mayes # (Auto) 0.55 K/uL (0.11-0.59) 03/08/24 22:23 Eos # (Auto) 0.09 K/uL (0.00-0.50) 03/08/24 22:23 Baso # (Auto) 0.06 K/uL (0.00-0.20) 03/08/24 22:23 Immature Gran # (Auto) 0.02 K/uL (0.01-0.20) 03/08/24 22:23 PT 10.8 Seconds (9.0-12.0) 03/08/24 22:23 INR 1.0 (0.9-1.1) 03/08/24 22:23 APTT 22 Seconds (21-31) 03/08/24 22:23 PTT Ratio 0.8 03/08/24 22:23 Sodium 136 mmol/L (136-145) 03/08/24 22:23 Potassium 3.9 mmol/L (3.5-5.1) 03/08/24 22:23 Chloride 103 mmol/L (98-107) 03/08/24 22:23 Carbon Dioxide 26 mmol/L (21-32) 03/08/24 22:23 Anion Gap 7 (3-11) 03/08/24 22:23 BUN 11 mg/dl (6-23) 03/08/24 22:23 Creatinine 0.85 mg/dl (0.6-1.4) 03/08/24 22:23 Est Cr Clr Drug Dosing 96.0 ml/min 03/08/24 22:23 Est GFR ( Amer) 103.8 ml/min 03/08/24 22:23 Est GFR (Non-Af Amer) 89.5 ml/min 03/08/24 22:23 BUN/Creatinine Ratio 12.9 (10-20) 03/08/24 22:23 Glucose 101 mg/dl (70-99(Fasting)) H 03/08/24 22:23 Calcium 9.0 mg/dl (8.6-10.3) 03/08/24 22:23 Magnesium 1.8 mg/dl (1.7-2.4) 03/08/24 22:23 Total Bilirubin 0.6 mg/dl (0.2-1.0) 03/08/24 22:23 AST 23 U/L (13-39) 03/08/24 22:23 ALT 33 U/L (7-52) 03/08/24 22:23 Alkaline Phosphatase 93 U/L (34-104) 03/08/24 22:23 Total Creatine Kinase 55 U/L (30-223) 03/08/24 22:23 Troponin I High Sens 8.0 pg/ml (0-20) 03/08/24 22:23 Total Protein 6.7 gm/dl (6.0-8.3) 03/08/24 22:23 Albumin 4.4 gm/dl (3.4-5.0) 03/08/24 22:23 Globulin 2.3 gm/dl (2.5-4.0) L 03/08/24 22:23 Albumin/Globulin Ratio 1.9 (0.9-2) 03/08/24 22:23 Lipase 23 U/L (11-82) 03/08/24 22:23 Ethyl Alcohol mg/dL 82.1 mg/dl (<10.0) H 03/08/24 22:23 Impressions Abdomen/Pelvis CT 03/08/24 22:21 Exam(s): CT ABDOMEN + PELVIS Without Contrast EXAM: CT Abdomen and Pelvis Without Intravenous Contrast CLINICAL HISTORY: Reason for exam: syncope, fall, head/neck pain. TECHNIQUE: Axial computed tomography images of the abdomen and pelvis without intravenous contrast. CTDI is 66.02 mGy and DLP is 3006.22 mGy-cm. Automated exposure control was utilized for the study. A dose lowering technique was utilized adhering to the principles of ALARA. COMPARISON: No relevant prior studies available. FINDINGS: Lung bases: Unremarkable. No mass. No consolidation. ABDOMEN: Liver: Subcentimeter left hepatic lobe cyst. No evidence of hepatic injury. Gallbladder and bile ducts: Unremarkable. No calcified stones. No ductal dilation. Pancreas: Unremarkable. No ductal dilation. No evidence of pancreatic injury. Spleen: Unremarkable. No evidence of splenic injury. Adrenals: Unremarkable. No evidence of adrenal injury. Kidneys and ureters: Unremarkable. No evidence of renal injury. No hydronephrosis or radiopaque stones. Stomach and bowel: Unremarkable. No mucosal thickening. No bowel obstruction, inflammation, or injury. PELVIS: Appendix: Normal appendix. Bladder: Unremarkable. No stones. Reproductive: Unremarkable as visualized. ABDOMEN and PELVIS: Intraperitoneal space: Unremarkable. No free fluid or free air. Bones/joints: No acute fracture or dislocation. Posterior decompression, posterior hardware fixation, and interbody fusion at L5-S1. Soft tissues: Unremarkable. Vasculature: Atherosclerosis without aortic aneurysm. Lymph nodes: Unremarkable. No enlarged lymph nodes. IMPRESSION: No acute findings in the abdomen or pelvis. Electronically signed by: Olesya Luke M.D. 03/08/24 23:[address] 03/08/24 22:21 Exam(s): CT C SPINE EXAM: CT Cervical Spine Without Intravenous Contrast CLINICAL HISTORY: Reason for exam: syncope, fall, head/neck pain. TECHNIQUE: Axial computed tomography images of the cervical spine without intravenous contrast. CTDI is 66.02 mGy and DLP is 3006.22 mGy-cm. Automated exposure control was utilized for the study. A dose lowering technique was utilized adhering to the principles of ALARA. COMPARISON: 01/25/13 FINDINGS: Bones are osteopenic. Vertebral body height and alignment are maintained. There is no acute fracture or traumatic subluxation. There is anterior cervical discectomy and fusion and C5-C7, without evidence of hardware complication. Compared to prior CT, interbody fusion at the C6-C7 level is new. There is multilevel disc, facet, and uncovertebral joint degeneration. Disc bulges/disc-osteophyte complexes produce mild to moderate multilevel central spinal canal stenosis. There are varying degrees of bilateral foraminal narrowing. Lung apices demonstrate paraseptal emphysema. There is no prevertebral soft tissue swelling. There are bilateral carotid calcifications. IMPRESSION: No acute osseous findings. Electronically signed by: Olesya Luke M.D. 03/08/24 23:[address] 03/08/24 22:21 Exam(s): CT CHEST Without Contrast EXAM: CT Chest Without Intravenous Contrast CLINICAL HISTORY: Reason for exam: syncope, fall. TECHNIQUE: Axial computed tomography images of the chest without intravenous contrast. CTDI is 66.02 mGy and DLP is 3006.22 mGy-cm. Automated exposure control was utilized for the study. A dose lowering technique was utilized adhering to the principles of ALARA. COMPARISON: No relevant prior studies available. FINDINGS: Lungs: Biapical paraseptal emphysema. Centrilobular emphysema. No consolidation or mass. Pleural space: Unremarkable. No pneumothorax. No significant effusion. Heart: Coronary artery atherosclerosis. Mild cardiomegaly. No pericardial effusion. Bones/joints: Partially imaged anterior cervical discectomy and fusion in the lower cervical spine. Disc degeneration in the thoracic spine. No acute fracture or dislocation. Soft tissues: Unremarkable. Vasculature: No aortic aneurysm. Normal caliber main pulmonary artery. Lymph nodes: Unremarkable. No adenopathy. IMPRESSION: 1. No acute traumatic findings. 2. Emphysema, an independent risk factor for lung cancer. Consider patient enrollment in low-dose cancer screening. Electronically signed by: Olesya Luke M.D. 03/08/24 23:[address] 03/08/24 22:21 Exam(s): CT HEAD Without Contrast EXAM: CT Head Without Intravenous Contrast CLINICAL HISTORY: Reason for exam: syncope, fall, head/neck pain. TECHNIQUE: Axial computed tomography images of the head/brain without intravenous contrast. CTDI is 66.02 mGy and DLP is 3006.22 mGy-cm. Automated exposure control was utilized for the study. A dose lowering technique was utilized adhering to the principles of ALARA. COMPARISON: 02/12/23 FINDINGS: Brain: Generalized parenchymal volume loss. Periventricular and deep cerebral white matter hypoattenuation suggesting chronic small vessel ischemic change. Lucero-white matter differentiation maintained. No hemorrhage, mass effect, parenchymal edema, or midline shift. Ventricles: Unremarkable. No hydrocephalus. Bones/joints: Unremarkable. No acute fracture. Soft tissues: Unremarkable. Vasculature: Intracranial atherosclerosis. Sinuses: Unremarkable as visualized. Mastoid air cells: Unremarkable as visualized. No mastoid effusion. Orbits: Bilateral lens replacements. IMPRESSION: No acute intracranial process. Electronically signed by: Olesya Luke M.D. 03/08/24 23:54 PM Diagnostic Findings EKG as per my interpretation :Rate 65, NSR, normal axis, 1 AVB, LVH, T wave abnormalities lateral leads
[2024-03-09] MEDS ORDERED: LORazepam 0.5 MG TAB PO PRN (03:18)
[2024-03-09 03:23] LABS: Thyroid Stimulating Hormone 4.831 uIu/ml (0.300-4.500)
[2024-03-09] MEDS: SODIUM CHLORIDE 0.9% 1,000 ML IV ONE (03:48)
[2024-03-09] MEDS: KETOROLAC TROMETHAMINE 15 MG/ML VIAL IV ONE (03:49)
[2024-03-09] MEDS: LORazepam 1 MG/1 ML SYR ED Inj Use IV STA (03:49)
[2024-03-09] MEDS: THIAMINE HCL 100 MG in SYRINGE 9 ML IV ONE (03:51)
--- NOTE | 2024-03-09 03:55 | CT Scan Report ---
Exam(s): CT FACIAL Without Contrast EXAM: CT Maxillofacial Without Intravenous Contrast CLINICAL HISTORY: Reason for exam: syncope, fall, head/neck pain. TECHNIQUE: Axial computed tomography images of the face without intravenous contrast. CTDI is 66.02 mGy and DLP is 3006.22 mGy-cm. Automated exposure control was utilized for the study. A dose lowering technique was utilized adhering to the principles of ALARA. COMPARISON: No relevant prior studies available. FINDINGS: Bones/joints: No acute fracture. Soft tissues: Unremarkable. Orbits: Unremarkable. Sinuses: Unremarkable. No air-fluid levels. IMPRESSION: Normal maxillofacial CT. Electronically signed by: Nate Tenorio MD 03/09/24 03:54 AM
[2024-03-09 03:58] LABS: T4 Free Thyroxine 1.21 ng/dl (0.61-1.60)
[2024-03-09] MEDS: ACETAMINOPHEN 325 MG TAB PO PRN (07:24)
[2024-03-09 07:31] LABS: Basophils # (auto) 0.02 K/uL (0.00-0.20); Basophils % (auto) 0.2 %; Eosinophils # (auto) 0.01 K/uL (0.00-0.50); Eosinophils % (auto) 0.1 %; Hematocrit (blood only) 37.6 % (42.0-52.0); Hemoglobin 13.6 g/dl (14.0-18.0); Immature Granulocytes # (auto) 0.04 K/uL (0.01-0.20); Immature Granulocytes % (auto) 0.4 %; Lymphocytes # (auto) 1.56 K/uL (1.20-3.40); Lymphocytes % (auto) 15.4 %; Mean Corpuscular Hemoglobin 32.9 pg (25.0-34.0); Mean Corpuscular Hgb Conc 36.2 g/dL (32.0-36.0); Mean Platelet Volume 9.9 fL (9.4-12.4); Monocytes # (auto) 0.87 K/uL (0.11-0.59); Monocytes % (auto) 8.6 %; Neutrophils # (auto) 7.66 K/uL (1.40-6.50); Neutrophils % (auto) 75.3 %; Platelet Count 209 K/uL (130-400); RDW Coefficient of Variation 12.1 % (11.5-14.5); RDW Standard Deviation 40.3 fL (36.4-46.3); Red Blood Count 4.13 M/uL (4.70-6.10); White Blood Count 10.16 K/ul (4.8-10.8)
[2024-03-09 08:00] LABS: BUN Creatinine Ratio 20.3 (10-20); Calcium 7.4 mg/dl (8.6-10.3); Creatinine Clr Calc Pharmacy 138.3 ml/min; Est GFR (African American) 120.6 ml/min; Potassium 4.8 mmol/L (3.5-5.1)
[2024-03-09] MEDS: MoRPHine SULFATE 4 MG/ML 1 ML CARP\\VIAL IV PRN (08:29)
[2024-03-09] MEDS: lisinopril 20 MG TAB PO SCH (08:30)
[2024-03-09] MEDS: ATORVASTATIN 40 MG TAB PO SCH (08:30)
[2024-03-09] MEDS: FLUTICASONE PROPIONATE NA SPR 16 GM BTL SCH (08:30)
[2024-03-09] MEDS: PANTOprazole 40 MG TAB PO SCH (08:30)
[2024-03-09] MEDS: EZETIMIBE 10 MG TAB PO SCH (08:30)
[2024-03-09] MEDS: FERROUS SULFATE 325 MG TAB PO SCH (08:30)
[2024-03-09] MEDS: dilTIAZem HCL 180 MG CAPCR PO SCH (08:30)
[2024-03-09] MEDS: FLUTICASONE/VILANTEROL 200/25MCG 14 PUFFS/INHALER INH SCH (08:32)
[2024-03-09 10:57] LABS: Appearance Urine Clear (Clear); Bilirubin Urine Negative (Negative); Blood Urine Negative (Negative); Color Urine Yellow; Glucose Urine UA Negative (Negative); Ketones Urine Negative (Negative); Leukocyte Esterase Urine Negative (Negative); Nitrite Urine Negative (Negative); Protein Urine Negative (Negative); Specific Gravity Urine 1.018 (1.000-1.030); Urobilinogen Urine Negative (Negative)
[2024-03-09 11:36] LABS: Amphetamines+Metham, Urine Neg (Neg); Barbiturates, Urine Neg (Neg); Benzodiazepine, Urine Neg (Neg); Cocaine, Urine Neg (Neg); Fentanyl, Urine Neg (Neg); MDMA (Ecstacy), Urine Neg (Neg); Marijuana, Urine Neg (Neg); Methadone, Urine Neg (Neg); Opiate, Urine Pos (Neg); Phencyclidine, Urine Neg (Neg)
[2024-03-09] MEDS: oxyCODONE HCL IR 5 MG TAB (IMMEDIATE RELEASE) PO PRN (11:45)
[2024-03-09] MEDS: tiZANidine HCL 4 MG TABLET PO PRN (14:50)
--- NOTE | 2024-03-09 16:05 | Hospitalist Progress Note ---
Date of Service March 09, 2024 Assessment & Plan (1) Syncope and collapse: Plan: Syncope Likely secondary to orthostasis Patient noted to be hypotensive prior to ED transport. Rule out arrhythmia, structural cardiac pathology as etiology of syncope. Blood pressure systolic 180s likely secondary to pain EKG no signs of acute ischemia or infarct Echocardiogram pending Usual BP meds resumed As needed hydralazine will be ordered Severe cervicalgia Status post fall CT cervical spine: There is anterior cervical discectomy and fusion and C5-C7, without evidence of hardware complication. Compared to prior CT, interbody fusion at the C6-C7 level is new. There is multilevel disc, facet, and uncovertebral joint degeneration. Disc bulges/disc-osteophyte complexes produce mild to moderate multilevel central spinal canal stenosis. There are varying degrees of bilateral foraminal narrowing. No focal neurologic symptoms at this point Continue pain control with as needed morphine, tizanidine, Tylenol Cervical collar ordered Orthopedic spine consulted, awaiting Dr. Miki Taylor's callback Traumatic scalp wound secondary to head trauma. - Monitor closely hx CAD, PVD as per records hypertension, BP slightly elevated secondary to discomfort hyperlipidemia, on statin and ezetimibe Rx. COPD, lung status at baseline PUD, on PPI ongoing tobacco abuse Hold antiplatelet Rx for now given traumatic scalp wound, resume if hemoglobin stable and bleeding resolved. Nicotine patch as needed DVT prophylaxis. TEDS, traumatic scalp bleed, SCDs contraindicated given history PAD Full code plan of care discussed with patient in detail and at length all questions answered he is understanding, agreeable, comfortable with the plan of care Admission and Anticipated Discharge Date Admission Date: March 09, 2024 Subjective Follow-up for syncope, fall, etc. 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, and was able to return to [place] with no problems He went to the [facility], 2 units of blood, and had to 2 bottles of beer, and while standing, he remembers passing out, no dizziness, palpitations, chest pain prior to the syncopal episode Patient said he did not eat or drink anything prior to the blood donation He then woke up with the paramedics around him, but was not confused No seizures noted by witnesses Review of Systems Review of Systems: all noted and negative except for above Physical Exam Physical Exam: General- oriented x 3, not in distress, speaks in sentences with no effort or accessory muscle use Eyes- anicteric Neck- Very tender to light palpation, no hematoma or erythema noted, full range of motion due to pain no JVD Lungs- clear breath sounds bilaterally, No crackles or wheezing Heart- normal rate, regular rhythm; no murmurs Abdomen- normal bowel sounds, nondistended, soft, nontender Extremities- no pretibial edema, no calf tenderness Neuro- alert, oriented x 3;Cranial nerves grossly intact, motor strength 5/5, sensation 100% all extremities no gross focal neurologic deficits Skin- warm & dry Results & Data Results & Data Vital Signs (Past 12 Hours) Vital Signs Pulse Pulse Resp BP BP Pulse Ox Pulse Ox 03/09/24 15:50 84 16 188/9 H 96 03/09/24 14:03 72 19 03/09/24 12:03 76 15 96 03/09/24 11:46 187/103 H 03/09/24 11:42 79 17 98 03/09/24 10:03 84 17 167/108 H 97 03/09/24 08:00 76 18 98 03/09/24 07:17 88 03/09/24 07:15 83 20 97 03/09/24 06:00 98 03/09/24 06:00 83 18 161/87 H 91 03/09/24 05:52 89 L 03/09/24 05:00 84 16 149/89 H 95 03/09/24 04:00 96 H 17 148/100 H 95 O2 Del Method O2 Del Method O2 Flow Rate O2 Flow Rate 03/09/24 15:50 Nasal Cannula 2 03/09/24 14:03 03/09/24 12:03 03/09/24 11:46 03/09/24 11:42 03/09/24 10:03 03/09/24 08:00 03/09/24 07:17 03/09/24 07:15 03/09/24 06:00 Nasal Cannula 2 03/09/24 06:00 Room Air 03/09/24 05:52 Room Air 03/09/24 05:00 Room Air 03/09/24 04:00 Room Air all noted and reviewed including below
[2024-03-09] MEDS: hydrALAZINE HCL 20 MG/ML VIAL IV PRN (16:52)
--- NOTE | 2024-03-09 17:38 | Electrocardiogram Report ---
Test Reason : Blood Pressure : / mmHG Vent. Rate : 064 BPM Atrial Rate : 064 BPM P-R Int : 232 ms QRS Dur : 092 ms QT Int : 394 ms P-R-T Axes : 077 032 087 degrees QTc Int : 406 ms Sinus rhythm with 1st degree A-V block with Premature atrial complexes Minimal voltage criteria for LVH, may be normal variant Nonspecific ST and T wave abnormality Abnormal ECG When compared with ECG of 12-FEB-2023 11:52, Premature atrial complexes are now Present IN interval has increased Confirmed by [place] Javier ([id number]) on 03/09/2024 5:38:00 PM Referred By: REFERRED SELF Confirmed By:Femi Javier
--- OUTSIDE RECORDS SUMMARY | 2024-03-09 23:55 | External Medical Summary | Summary of Care ---
Author Name Unknown Organization [facility] Address [address] [place] [address] Phone [phone] Care Team Providers Care Stringed Instrument Assembler Name Role Phone Anastacio Shabazz DO Primary Care Provider + [phone] Reason for Visit * Reason Comments eRx-Medication Refill Encounter Details Date Type Department Care Team (Late st Contact Info) Description 01/09/2024 Refill Cardiology, [facility] [address] [place] [address] Marely Crockett PA-C [address] [place] [address] Dyslipidemia, goal LDL below 70 Allergies No known active allergiesdocumented as of this encounter (statuses as of 01/10/2024) Medications Medication Sig Dispensed Refills Start Date End Date Status ASPIRIN 81 MG PO TABS one tablet daily 0 Active NITROGLYCERIN 0.[address] under the tongue. 0 Active dilTIAZem HCl ER Coated Beads 180 MG Oral Capsule Extended Release 24 Hour (Cardizem CD)Indications:H ypertensive heart disease, severity unknown TAKE ONE CAPSULE BY MOUTH EVERY MORNING 90 Capsule 3 12/03/2022 Active Lisinopril-hydro CHLOROthiazide 20-12.5 MG Oral TabletIndication s:Coronary artery disease involving [place] coronary artery of [place] heart without angina pectoris,Hyperte nsive heart disease, severity unknown TAKE ONE TABLET BY MOUTH EVERY MORNING 90 Tablet 3 12/28/2022 Active Additional Information Patient not taking.Informant: Patient, Reported on 09/28/2023 Clopidogrel Bisulfate 75 MG Oral Tablet (Plavix) Take 1 Tablet by mouth in the morning. 30 Tablet 3 01/13/2023 Active Pantoprazole Sodium 40 MG Oral Tablet Delayed Release (Protonix) Take 1 Tablet by mouth in the morning. 90 Tablet 3 03/04/2023 Active Cilostazol 100 MG Oral Tablet (Pletal) 1 tablet by mouth at bedtime for 1 week, than 1 tablet by mouth twice a day 60 Tablet 11 03/22/2023 Active Fluticasone Propionate 50 MCG/ACT Nasal Suspension (Flonase)Indicat ions:Seasonal allergic rhinitis due to pollen Administer 2 Sprays into each nostril in the morning. 16 g 2 03/25/2023 Active Ferrous Sulfate 325 (65 Fe) MG Oral Tablet (Feosol)Indicati ons:Iron deficiency anemia due to chronic blood loss Take 1 Tablet by mouth in the morning and 1 Tablet before bedtime. 60 Tablet 5 03/25/2023 Active Additional Information Patient not taking.Reported on 09/28/2023 Albuterol Sulfate HFA 108 (90 Base) MCG/ACT Inhalation Aerosol Solution INHALE 2 PUFFS BY MOUTH EVERY 6 HOURS NEEDED FOR SHORTNESS OF BREATH 18 g 2 03/31/2023 Active Ezetimibe 10 MG Oral Tablet (Zetia)Indicatio ns:Dyslipidemia, goal LDL below 70 TAKE ONE TABLET BY MOUTH EVERY DAY IN THE MORNING 34 Tablet 11 07/21/2023 Active Fluticasone-Salm eterol 250-50 MCG/ACT Inhalation Aerosol Powder Breath Activated (Advair Diskus)Indicatio ns:COPD, moderate (HCC) INHALE 1 PUFF EVERY MORNING AND 1 PUFF EVERY EVENING 60 Each 5 10/25/2023 Active Atorvastatin Calcium 80 MG Oral Tablet (Lipitor)Indicat ions:Dyslipidemi a, goal LDL below 70 TAKE ONE TABLET BY MOUTH EVERY MORNING 90 Tablet 3 01/10/2024 Active Atorvastatin Calcium 80 MG Oral Tablet (Lipitor)Indicat ions:Dyslipidemi a, goal LDL below 70 TAKE ONE TABLET BY MOUTH EVERY MORNING 90 Tablet 3 12/28/2022 4 Discontinued Hospital, Clinic, or Other Facility Administered Medication Ordered Dose Route Frequency Start Date End Date Status Albuterol Sulfate (Proventil) (2.5 MG/3ML) 0.083% inhalation solution 2.5 mgIndications:COPD, moderate (HCC) 2.5 mg NEBULIZER ONCE PRN 03/25/2023 03/24/2024 Active documented as of this encounter (statuses as of 01/10/2024) Active Problems Problem Noted Date Diagnosed Date COPD, group B, by GOLD 2017 classification 07/05 Overview: Per COPD GOLD Classification Duodenal ulcer 03/25/2023 HTN, goal below 130/80 03/25/2023 Claudication in peripheral vascular disease 06/27 Emphysema lung 07/24/2016 Chronic urticaria 03/20/2016 Overview: since 01/26/16 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 CAD (coronary artery disease) 06/26/2014 Equivocal stress test 01/15/2014 Pre-operative cardiovascular examination 014 Hypertensive heart disease, severity unknown Chest discomfort 03/17/2013 Essential hypertension, benign 02/02/2013 Acquired fusion of cervical spine 02/02/2013 Other and unspecified hyperlipidemia 02/02/2013 Tobacco use disorder 02/02/2013 Rheumatic heart disease Overview: s/p fusion Degeneration of cervical intervertebral disc Overview: s/p fusion documented as of this encounter (statuses as of 01/10/2024) Resolved Problems Problem Noted Date Diagnosed Date Resolved Date COPD, group A, by GOLD 2017 classification 02/05/2020 07/08/2023 Overview: Per COPD GOLD Classification Wheezing 03/20/2016 11/23/2016 Dyslipidemia, goal LDL below 70 06/19/2013 08/03/2018 documented as of this encounter (statuses as of 01/10/2024) Immunizations Name Administration Dates Next Due Pneumococcal Polysaccharide PPV23 (Pneumovax) TDAP (age 10 and older)(Boostrix) 02/23/2023 TDAP (age 11 and older)(Adacel) 02/21/2010 documented as of this encounter Social History Tobacco Use Types Packs/Day Years Used Date Smoking Tobacco: Every Day Cigarettes 1 45 Smokeless Tobacco: Never Comments:03/17/23 1 pack per day, denies pamphlet Alcohol Use Standard Drinks/Week Comments Yes 0 (1 standard drink = 0.6 oz pur e alcohol) occasional PHQ-2 Answer Date Recorded PHQ Adult Total Score 0 03/25/2023 Hunger Vital Sign Answer Date Recorded Within the past 12 months, y ou worried that your food would run out before you got the money to buy more. Never true 03/25/20 23 Within the past 12 months, t he food you bought just didn't last and you didn't have money to get more. Never true 03/25/2023 Sex and Gender Information Value Date Recorded Sex Assigned at Male 03/25/2023 4:27 PM EDT Gender Identity Male 03/25/2023 4:27 PM EDT Sexual Orientation Straight 01/25/2020 9: 09 AM EDT Job Start Date Occupation Industry Not on file Not on file Not on file documented as of this encounter Miscellaneous Notes * Telephone Encounter - Marely Crockett PA-C - 01/10/2024 12:12 PM EDTSigned Prescriptions: Disp Refills Atorvastatin Calcium 80 MG Oral Tablet (Li*90 Tab*3 Sig: TAKE ONE TABLET BY MOUTH EVERY MORNING Authorizing Provider: MARELY CROCKETT * Telephone Encounter - Erlinda Moreau CMA - 01/10/2024 11:43 AM EDTPending Prescriptions: Disp Refills Atorvastatin Calcium 80 MG Oral Tablet [Ph*90 Tab*3 Sig: TAKE ONE TABLET BY MOUTH EVERY MORNING * Telephone Encounter - Erlinda Moreau CMA - 01/10/2024 11:43 AM EDT Did you pend patient's preferred pharmacy and medication before forwarding?yes Pharmacy: [facility] [id number] Pending Prescriptions: Disp Refills Atorvastatin Calcium 80 MG Oral Tablet (L*90 Tab*3 Sig: TAKE ONE TABLET BY MOUTH EVERY MORNING Last Visit: 03/04/2023 (in office), Visit date not found (telemedicine) Next Visit: Visit date not found If no future appointments scheduled, and last appointment is greater than a year ago, please schedule patient for a follow-up appointment Last date the medication was ordered: 12-28-2022 Is this request for a controlled substance?No Urine Drug Screen:No results found for this or any previous visit. Patient Phone Numbers Labs: Lab Results Component Value Date/Time CREAT 0.7 03/04/2023 08:32 AM CREAT 0.8 10/19/2019 12:54 PM POTASSIUM 4.8 03/04/2023 08:32 AM POTASSIUM 4.6 10/19/2019 12:54 PM TSH 1.41 10/19/2019 12:54 PM LDLCALC 54 12/25/2020 11:10 AM LDLCALC 141 (H) 07/19/2015 07:23 AM LDLDIRECT 46 03/04/2023 08:32 AM LDLDIRECT 104 10/19/2019 12:54 PM ALT 20 03/04/2023 08:32 AM ALT 19 10/19/2019 12:54 PM documented in this encounter Plan of Treatment Upcoming Encounters Date Type Department Care Team (Late st Contact Info) Description 02/28/2024 11:15 AM EDT Imaging Radiology [facility] [address] [place], [place] [address] [facility] [place] [id number] 03/28/2024 12:30 PM EDT Appointment Vascular Lab [address] [place] [address] 03/28/2024 1:00 PM EDT Appointment Vascular Lab [place] [address] [place] [address] 03/28/2024 1:45 PM EDT Office Visit Vascular Surg [facility], [place] [address] [place] [address] Miki Garcia MD [address] [place] [address] Scheduled Procedures Name Priority Associated Diagnoses Date/Ti me COLONOSCOPY FLEXIBLE PROXIMA L DIAGNOSTIC Recall Personal history of colonic polyps Health Maintenance Due Date Last Done Comments DISCUSS TOBACCO CESSATION (REFER TO SMARTSET #7758) 1955 Alpha-1 Antitrypsin 1973 Hepatitis C Screening 1973 Zoster Vaccines (1 of 2) 2005 Pneumococcal Vaccine: 65+ Years (2 of 2 - PCV) 02/21/2011 02/21/2010 COLONOSCOPY-EVERY 5 YRS AGES 18-100 10/02/2019 10/02/2014, 10/02/2014, 03/20/2010 COVID-19 Vaccine (3 - 2022- season) 2023 01/15/2021, 12/25/2020 O2 ASSESSMENT COMPLETED IN PAST YEAR FOR COPD 01/14/2024 01/13/2023 GFR 03/04/2024 03/04/2023, 04/0 01/2023, 01/08/2022, Additional history exists Depression Screening 03/25/2024 03/25/2023 Influenza Vaccine (FLU shot) (Season Ended) 2024 Albumin/Creatinine Ratio 03/04/2026 03/04/2023 Diabetes Screening 03/04/2026 03/04/2023, 0 01/13/2023, 12/30/2022, Additional history exists DTaP,Tdap,and Td Vaccines (3 - Td or Tdap) 02/23/2033 02/23/2023, 02/21/2010 AAA Screening Completed 02/05/2022 Lung Cancer Screening Completed 02/24/2023 , 02/06/2022, 06/19/2019, Additional history exists GARDASIL-HPV IMMUNIZATION SERIES Aged Out No longer eligible based on patient's age to complete this topic Hepatitis B Aged Out No longer eligi ble based on patient's age to complete this topic MENINGOCOCCAL (MENACTRA/MENVEO) Aged Out No longer eligible based on patient's age to complete this topic documented as of this encounter Medical Devices Implanted Type Area Drafter Electronic Device Identifier Shelf Expiration Date Model / Serial / Lot Implant Tack 135cm 8mm 6 Tack - [id number] Implanted:Qt y: 1 on 01/13/2023 by Miki Garcia MD at [facility] Right: Popliteal Artery [employer] [id number] 02/25/2023 [id number] / [id number] documented as of this encounter Visit Diagnoses Diagnosis Dyslipidemia, goal LDL below 70 Other and unspecified hyperlipidemia documented in this encounter Care Teams Stringed Instrument Assembler Relationship Specialty Start Date End Date Anastacio Shabazz DO [address] [place] [id number] PCP - General Family Medicine 09/28/23 documented as of this encounter
--- OUTSIDE RECORDS SUMMARY | 2024-03-09 23:55 | External Medical Summary | Summary of Care ---
Author Name Unknown Organization [facility] Address [address] [place] [address] Phone [phone] Care Team Providers Care Transportation Refrigeration Technician Name Role Phone Anastacio Shabazz DO Primary Care Provider + [phone] Encounter Details Date Type Department Care Team (Late st Contact Info) Description 01/14/2024 Telephone [facility]works [facility] [address] [place] [address] Keila Murphy PA-C [address] [place] [address] Allergies No known active allergiesdocumented as of this encounter (statuses as of 01/14/2024) Medications Medication Sig Dispensed Refills Start Date End Date Status ASPIRIN 81 MG PO TABS one tablet daily 0 Active NITROGLYCERIN 0.[address] under the tongue. 0 Active dilTIAZem HCl ER Coated Beads 180 MG Oral Capsule Extended Release 24 Hour (Cardizem CD)Indications:Hyp ertensive heart disease, severity unknown TAKE ONE CAPSULE BY MOUTH EVERY MORNING 90 Capsule 3 12/03/2022 Active Lisinopril-hydroCH LOROthiazide 20-12.5 MG Oral TabletIndications: Coronary artery disease involving [place] coronary artery of [place] heart without angina pectoris,Hypertens maryjane heart disease, severity unknown TAKE ONE TABLET BY MOUTH EVERY MORNING 90 Tablet 3 12/28/2022 Active Clopidogrel Bisulfate 75 MG Oral Tablet (Plavix) Take 1 Tablet by mouth in the morning. 30 Tablet 3 01/13/2023 Active Additional Information Patient not taking.Reported on 01/14/2024 Pantoprazole Sodium 40 MG Oral Tablet Delayed Release (Protonix) Take 1 Tablet by mouth in the morning. 90 Tablet 3 03/04/2023 Active Additional Information Patient not taking.Reported on 01/14/2024 Cilostazol 100 MG Oral Tablet (Pletal) 1 tablet by mouth at bedtime for 1 week, than 1 tablet by mouth twice a day 60 Tablet 11 03/22/2023 Active Fluticasone Propionate 50 MCG/ACT Nasal Suspension (Flonase)Indicatio ns:Seasonal allergic rhinitis due to pollen Administer 2 Sprays into each nostril in the morning. 16 g 2 03/25/2023 Active Ferrous Sulfate 325 (65 Fe) MG Oral Tablet (Feosol)Indication s:Iron deficiency anemia due to chronic blood loss Take 1 Tablet by mouth in the morning and 1 Tablet before bedtime. 60 Tablet 5 03/25/2023 Active Albuterol Sulfate HFA 108 (90 Base) MCG/ACT Inhalation Aerosol Solution INHALE 2 PUFFS BY MOUTH EVERY 6 HOURS NEEDED FOR SHORTNESS OF BREATH 18 g 2 03/31/2023 Active Ezetimibe 10 MG Oral Tablet (Zetia)Indications :Dyslipidemia, goal LDL below 70 TAKE ONE TABLET BY MOUTH EVERY DAY IN THE MORNING 34 Tablet 11 07/21/2023 Active Fluticasone-Salmet sandra 250-50 MCG/ACT Inhalation Aerosol Powder Breath Activated (Advair Diskus)Indications :COPD, moderate (HCC) INHALE 1 PUFF EVERY MORNING AND 1 PUFF EVERY EVENING 60 Each 5 10/25/2023 Active Atorvastatin Calcium 80 MG Oral Tablet (Lipitor)Indicatio ns:Dyslipidemia, goal LDL below 70 TAKE ONE TABLET BY MOUTH EVERY MORNING 90 Tablet 3 01/10/2024 Active predniSONE 10 MG Oral Tablet (Deltasone)Indicat ions:Sinobronchiti s,Wheezes,Rhonchi at both lung bases,Shortness of breath Take 5 tabs for 2 days, 4 tabs for 2 days, 3 tabs for 2 days, 2 tabs for 2 days 1 tab for 2 days 30 Tablet 0 01/14/2024 Active Amoxicillin-Pot Clavulanate 875-125 MG Oral Tablet (Augmentin)Indicat ions:Sinobronchiti s Take 1 Tablet by mouth in the morning and 1 Tablet before bedtime. Do all this for 10 days. 20 Tablet 0 01/14/2024 01/24/2024 Active Azithromycin 250 MG Oral Tablet (Zithromax)Indicat ions:Sinobronchiti s Take 2 tabs by mouth on the first day, then 1 tab daily on days two through five 6 Tablet 0 01/14/2024 01/19/2024 Active Hospital, Clinic, or Other Facility Administered Medication Ordered Dose Route Frequency Start Date End Date Status Albuterol Sulfate (Proventil) (2.5 MG/3ML) 0.083% inhalation solution 2.5 mgIndications:COPD, moderate (HCC) 2.5 mg NEBULIZER ONCE PRN 03/25/2023 03/24/2024 Active Albuterol Sulfate (Proventil) (2.5 MG/3ML) 0.083% inhalation solution 2.5 mgIndications:Sinobronc hitis,Wheezes,Rhonchi at both lung bases,Shortness of breath 2.5 mg NEBULIZER ONCE 01/14/2024 01/14/2024 Active documented as of this encounter (statuses as of 01/14/2024) Active Problems Problem Noted Date Diagnosed Date Pinguecula 11/23/2023 Nuclear senile cataract 11/23/2023 Insufficiency of tear film of both eyes 11/23/19 COPD, group B, by GOLD 2017 classification [...] as of this encounter (statuses as of 01/14/2024) Resolved Problems Problem Noted Date Diagnosed Date Resolved Date COPD, group A, by GOLD 2017 classification 02/05/2020 07/08/2023 Overview: Per COPD GOLD Classification Wheezing 03/20/2016 11/23/2016 Dyslipidemia, goal LDL below 70 06/19/2013 08/03/2018 documented as of this encounter (statuses as of 01/14/2024) Immunizations Name Administration Dates Next Due Pneumococcal [...] encounter Miscellaneous Notes * Telephone Encounter - Danielle Harmon LPN - 01/14/2024 6:58 PM EDT Called and spoke with pt. Relayed information to pt. Pt voiced understanding. Pt states that he will be taking his trip as planned. States that he started the prednisone today and is starting to feelbetter already. * Telephone Encounter - Keila Murphy PA-C - 01/14/2024 6:52 PM EDT Pls call pt and make sure he is aware of the results Read his Good news on the chest xray: No pneumonia: FINDINGS The lungs are clear. There is no pleural effusion or pneumothorax. The cardiomediastinal silhouetteis within normal limits. IMPRESSION IMPRESSION No active disease. Having said this, you are having an exacerbation of COPD and need to take it easy. Traveling to [place] could pose a lot of danger for you. I am very concerned that you are going to have difficulty breathing in the pressurized cabin of the plane. If need be I can write a note to postpone your flight. You are putting yourself at risk. Bibi Murphy PA-C [facility] [place] that I wrote: documented in this encounter Plan of Treatment Upcoming Encounters Date Type Department Care Team (Late st Contact Info) Description 02/28/2024 11:15 AM EDT Imaging Radiology [address] [address] 03/28/2024 12:30 PM EDT Appointment Vascular Lab [address] [address] 03/28/2024 1:00 PM EDT Appointment Vascular Lab [place] [address] [place] [address] 03/28/2024 1:45 PM EDT Office Visit Vascular Surg [place] [address] [place] [address] Miki Garcia MD [address] [place], [place] [id number] Scheduled Procedures Name Priority Associated Diagnoses Date/Ti me COLONOSCOPY FLEXIBLE PROXIMA L DIAGNOSTIC Recall Personal history of colonic polyps Health Maintenance Due Date Last Done Comments DISCUSS TOBACCO CESSATION (REFER TO SMARTSET #7737) 1955 Alpha-1 Antitrypsin 1973 Hepatitis C Screening [...] this encounter Medical Devices Implanted Type Area Charging Manipulator Device Identifier Shelf Expiration Date Model / Serial / Lot Implant Tack 135cm 8mm 6 Tack - [id number] Implanted:Qt y: 1 on 01/13/2023 by Miki Garcia MD at [facility] [place] Right: Popliteal Artery [employer] [id number] 02/25/2023 [id number] / / [id number] documented as of this encounter Care Teams Transportation Refrigeration Technician Relationship Specialty Start Date End Date Anastacio Shabazz DO [address] [place] [address] PCP - General Family Medicine 09/28/23 documented as of this encounter
--- OUTSIDE RECORDS SUMMARY | 2024-03-09 23:55 | External Medical Summary | Summary of Care ---
Author Name Unknown Organization [facility] Address [address] [place] [address] Phone [phone] Care Team Providers Care Laryngologist Name Role Phone Anastacio Shabazz DO Primary Care Provider + [phone] Reason for Visit * Reason Comments Congestion Cold Symptoms Cough Headache Encounter Details Date Type Department Care Team (Latest Contact Info) Description 01/14/2024 9:00 AM EDT Convenient [facility] Visit [facility] [address] [place] [address] Keila Murphy PA-C [address] [place] [address] Sinobronchitis*; Wheezes; Rhonchi at both lung bases; Shortness of breath Allergies No known active allergiesdocumented as of [...] MG Oral TabletIndications: Coronary artery disease involving [place] coronary artery of [place] heart without angina pectoris,Hypertens maryjane heart disease, [...] of tear film of both eyes 11/23/19 24 COPD, group B, by GOLD 2017 classification [...] Day Cigarettes 1 45 Smokeless Tobacco: Never Tobacco Cessation:Ready to Q uit: Not Asked; Counseling Given: Not Answered Comments:03/17/23 1 pack per day, denies pamphlet [...] on file documented as of this encounter Last Filed Vital Signs Vital Sign Reading Time Taken Comments Blood Pressure 194/82 01/14/2024 9:07 AM EDT Pulse 69 01/14/2024 9:07 AM EDT Temperature 36.7 C (98 F) 01/14/2024 9:07 AM EDT Respiratory Rate 20 01/14/2024 9:07 AM EDT Oxygen Saturation 93% 01/14/2024 9:07 AM EDT Inhaled Oxygen Concentration - - Weight 89.4 kg (197 lb) 01/14/2024 9:07 AM EDT Height 182.9 cm (6') 01/14/2024 9:07 AM EDT Body Mass Index 26.72 01/14/2024 9:07 AM EDT documented in this encounter Patient Instructions * Patient Instructions* Keila Murphy PA-C - 01/14/2024 9:29 AM EDT Go to [facility] for the chest xray documented in this encounter Progress Notes * Keila Murphy PA-C - 01/14/2024 9:07 AM EDT Images from the original note were not included. Subjective: Nursing Notes: Marti Walker LPN 01/14/24 0913 Signed Musa Castañeda is a 68 year old male who presents to walk-in clinic today complaining of Chief Complaint Patient presents with Congestion Cold Symptoms Cough Headache Tried: OTC COLD MEDS/ALBUTEROL INHALER Pt accompanied by: SELF Sx are cough, congestion x1 WEEK Not sure if head fever, nothing now Started as a facer congestion, sore throat, but now heavy in chest. Keeps him up and wakes up, a lot of coughing over night Using albuterol inhalers 3 times a day, help slightly Just finished cataract surgery a week ago and is to going to [place] over the weekend, 2 d sick contacts at home. Sig med hx/risk factors: Endocrine/Metabolic Other and unspecified hyperlipidemia Respiratory Emphysema lung (HCC) COPD, group B, by GOLD 2017 classification (HCC) Circulatory Hypertensive heart disease, severity unknown CAD (coronary artery disease) Rheumatic heart disease Essential hypertension, benign Equivocal stress test HTN, goal below 130/80 Digestive Duodenal ulcer Musculoskeletal and Integumentary Claudication in peripheral vascular disease ([facility]) Degeneration of cervical intervertebral disc Acquired fusion of cervical spine Chronic urticaria Dermatographism Nervous and Auditory Chest discomfort Other Tobacco use disorder Pre-operative cardiovascular examination no flu shot this year. Review of Systems Constitutional: Negative for activity change, appetite change, fatigue and fever. HENT: Positive for congestion, postnasal drip, rhinorrhea, sinus pressure, sinus pain (always, throbbing) and sore throat (mild). Negative for ear pain and voice change. Eyes: Negative for discharge and redness. Respiratory: Positive for cough (productive, chest congestion), chest tightness (tight upper chest), shortness of breath and wheezing. Chest wall pain from constant coughing Cardiovascular: Negative for chest pain. Gastrointestinal: Negative for abdominal pain, diarrhea, nausea and vomiting. Musculoskeletal: Negative for arthralgias, neck pain and neck stiffness. Allergic/Immunologic: Negative for environmental allergies. Neurological: Positive for headaches. Negative for dizziness. Hematological: Negative for adenopathy. PMH: Patient Active Problem List Diagnosis Code Rheumatic heart disease I09.9 Degeneration of cervical intervertebral disc M50.30 Essential hypertension, benign I10 Acquired fusion of cervical spine M43.22 Other and unspecified hyperlipidemia E78.5 Tobacco use disorder F17.200 Chest discomfort R07.89 Equivocal stress test R94.39 Pre-operative cardiovascular examination Z01.810 Hypertensive heart disease, severity unknown I11.9 CAD (coronary artery disease) I25.10 Chronic urticaria L50.8 Dermatographism L50.3 Emphysema lung ([facility]) J43.9 Claudication in peripheral vascular disease ([facility]) I73.9 Duodenal ulcer K26.9 HTN, goal below 130/80 I10 COPD, group B, by GOLD 2017 classification ([facility]) J44.9 [place] H11.159 Nuclear senile cataract H25.10 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 Do all this for 10 days. 20 Tablet 0 Azithromycin 250 MG Oral Tablet (Zithromax) Take 2 tabs by mouth on the first day, then 1 tab dailyon days two through five 6 Tablet 0 ASPIRIN 81 MG PO TABS one tablet daily NITROGLYCERIN 0.[address] under the tongue. dilTIAZem HCl ER Coated Beads 180 MG Oral Capsule Extended Release 24 Hour (Cardizem CD) TAKE ONE CAPSULE BY MOUTH EVERY MORNING 90 Capsule 3 Lisinopril-hydroCHLOROthiazide 20-12.5 MG Oral Tablet TAKE ONE TABLET BY MOUTH EVERY MORNING 90 Tablet 3 Clopidogrel Bisulfate 75 MG Oral Tablet (Plavix) Take 1 Tablet by mouth in the morning. (Patient not taking: Reported on 01/14/2024) 30 Tablet 3 Pantoprazole Sodium 40 MG Oral Tablet Delayed Release (Protonix) Take 1 Tablet by mouth in the morning. (Patient not taking: Reported on 01/14/2024) 90 Tablet 3 Cilostazol 100 MG Oral Tablet (Pletal) 1 tablet by mouth at bedtime for 1 week, than 1 tablet by mouth twice a day 60 Tablet 11 Fluticasone Propionate 50 MCG/ACT Nasal Suspension (Flonase) Administer 2 Sprays into each nostril in the morning. 16 g 2 Ferrous Sulfate 325 (65 Fe) MG Oral Tablet (Feosol) Take 1 Tablet by mouth in the morning and 1 Tablet before bedtime. 60 Tablet 5 Albuterol Sulfate HFA 108 (90 Base) MCG/ACT Inhalation Aerosol Solution INHALE 2 PUFFS BY MOUTH EVERY 6 HOURS NEEDED FOR SHORTNESS OF BREATH 18 g 2 Ezetimibe 10 MG Oral Tablet (Zetia) TAKE ONE TABLET BY MOUTH EVERY DAY IN THE MORNING 34 Tablet 11 Fluticasone-Salmeterol 250-50 MCG/ACT Inhalation Aerosol Powder Breath Activated (Advair Diskus) INHALE 1 PUFF EVERY MORNING AND 1 PUFF EVERY EVENING 60 Each 5 Atorvastatin Calcium 80 MG Oral Tablet (Lipitor) TAKE ONE TABLET BY MOUTH EVERY MORNING 90 Tablet 3 Current Facility-Administered Medications Medication Dose Route Frequency Provider Last Rate Last Admin Albuterol Sulfate (Proventil) (2.5 MG/3ML) 0.083% inhalation solution 2.5 mg 2.5 mg Nebulizer Once PRN Anastacio Shabazz DO 2.5 mg at 04/19/23 0853 Albuterol Sulfate (Proventil) (2.5 MG/3ML) 0.083% inhalation solution 2.5 mg 2.5 mg Nebulizer Once Keila Murphy PA-C Past Medical History: Diagnosis Date Acquired fusion of cervical spine 02/02/2013 Arthritis Benign neoplasm of colon 03/20/2010 polyps x3 path shows adenomatous tissue repeat in 3 years CAD (coronary artery disease) 06/26/2014 COPD (chronic obstructive pulmonary disease) (HCC) Degeneration of cervical intervertebral disc s/p fusion Dyslipidemia, goal LDL below 70 06/19/2013 Essential hypertension, benign 02/02/2013 Hypertensive heart disease, severity unknown 01/15/2014 Neuropathy Other and unspecified hyperlipidemia 02/02/2013 PAD (peripheral artery disease) (HCC) Rheumatic heart disease s/p fusion Spontaneous pneumothorax 1983 x3 Tobacco use disorder 02/02/2013 Undiagnosed cardiac murmurs Past Surgical History: Procedure Laterality Date COLONOSCOPY W/ LESION REMOVAL, SNARE 03/20/2010 done polyps x3 path shows adenomatous tissue repeat in 3 years COLONOSCOPY W/ SUBMUCOUS INJ 03/20/2010 done COLONOSCOPY, DIAGNOSTIC (RECTUM) 10/02/2014 diverticulosis, repeat 5 yrs/COLONOSCOPY FLEXIBLE PROXIMAL DIAGNOSTIC performed by Akash Whittaker MD at ENDOSCOPY [facility] [employer] ADDED SPINAL CORD SEGMNT 01/22/2016 UOC FEM/POP ARTERY REVASC W/ STENT+ANGIOPLASTY Right 01/13/2023 FEM/POP ARTERY REVASC W/ STENT+ANGIOPLASTY performed [place] Miki Garcia [place] [facility] [place] Heart Cath. IR ARTERIOGRAM EXTREMITY UNILATERAL Right 01/13/2023 IMAGING SUPERVISION & INTERPRETATION EXTREMITY UNILATERAL performed by Miki Garcia MD [place] [facility] [place]K SPINE FUSION (CERV, BELOW C2) 1999 C6-C7---Dr Taylor TREAT CHEST LINING FOR PHEUMOTHORAX 1983 Review of patient's allergies indicates: No Known Allergies Objective: BP 194/82 | Pulse 69 | Temp 36.7 C (98 F) (Tympanic) | Resp 20 | Ht 1.829 m (6') | Wt 89.4 kg (197 lb) | SpO2 93% | BMI 26.72 kg/m | BSA 2.13 m Physical Exam Constitutional: Appearance: Normal appearance. He is normal weight. HENT: Head: Normocephalic. Right Ear: Tympanic membrane, ear canal and external ear normal. Left Ear: Tympanic membrane, ear canal and external ear normal. Nose: No congestion or rhinorrhea. Mouth/Throat: Pharynx: Posterior oropharyngeal erythema present. No oropharyngeal exudate. Eyes: Extraocular Movements: Extraocular movements intact. Conjunctiva/sclera: Conjunctivae normal. Cardiovascular: Rate and Rhythm: Normal rate and regular rhythm. Heart sounds: Normal heart sounds. Pulmonary: Effort: Respiratory distress (mild, had increased effort) present. Breath sounds: No stridor. Wheezing and rhonchi present. Comments: Wet sounding cough during OV Musculoskeletal: General: Normal range of motion. Cervical back: Normal range of motion. No rigidity. No muscular tenderness. Lymphadenopathy: Cervical: Cervical adenopathy present. Skin: Findings: No rash. Neurological: Mental Status: He is alert and oriented to person, place, and time. Psychiatric: Mood and Affect: Mood normal. Thought Content: Thought content normal. Judgment: Judgment normal. ASSESSMENT/PLAN: Sinobronchitis (Primary) - predniSONE 10 MG Oral Tablet (Deltasone); Take 5 tabs for 2 days, 4 tabs for 2 days, 3 tabs for 2days, 2 tabs for 2 days 1 tab for 2 days - Albuterol Sulfate (Proventil) (2.5 MG/3ML) 0.083% inhalation solution 2.5 mg - Amoxicillin-Pot Clavulanate 875-125 MG Oral Tablet (Augmentin); Take 1 Tablet by mouth in the morning and 1 Tablet before bedtime. Do all this for 10 days. - Azithromycin 250 MG Oral Tablet (Zithromax); Take 2 tabs by mouth on the first day, then 1 tab daily on days two through five Wheezes - predniSONE 10 MG Oral Tablet (Deltasone); Take 5 tabs for 2 days, 4 tabs for 2 days, 3 tabs for 2days, 2 tabs for 2 days 1 tab for 2 days - Albuterol Sulfate (Proventil) (2.5 MG/3ML) 0.083% inhalation solution 2.5 mg - XR CHEST 2 VIEWS Rhonchi at both lung bases - predniSONE 10 MG Oral Tablet (Deltasone); Take 5 tabs for 2 days, 4 tabs for 2 days, 3 tabs for 2days, 2 tabs for 2 days 1 tab for 2 days - Albuterol Sulfate (Proventil) (2.5 MG/3ML) 0.083% inhalation solution 2.5 mg - XR CHEST 2 VIEWS Shortness of breath - predniSONE 10 MG Oral Tablet (Deltasone); Take 5 tabs for 2 days, 4 tabs for 2 days, 3 tabs for 2days, 2 tabs for 2 days 1 tab for 2 days - Albuterol Sulfate (Proventil) (2.5 MG/3ML) 0.083% inhalation solution 2.5 mg - XR CHEST 2 VIEWS Patient Instructions Go to [facility] for the chest xray Reviewed xrays and the findings and contacted pt via [facility] to discuss the results FINDINGS The lungs are clear. There is no pleural effusion or pneumothorax. The cardiomediastinal silhouetteis within normal limits. IMPRESSION IMPRESSION No active disease. Advised pt that flying to [place] could be dangerous for him Return instruction reviewed with pt in detail. Reasons to report to the ED were also reviewed. Voiced understanding Advised to follow up if no improvement in 3-5days. Keila Murphy PA-C documented in this encounter Nursing Notes * Marti Walker LPN - 01/14/2024 9:46 AM EDT Nebulizer treatment finished at this time. Pt tolerated well. SpO2: 93 Pulse: 89 * Marti Walker LPN - 01/14/2024 9:13 AM EDT Musa Castañeda is a 68 year old male who presents to walk-in clinic today complaining of Chief Complaint Patient presents with Congestion Cold Symptoms Cough Headache Tried: OTC COLD MEDS/ALBUTEROL INHALER Pt accompanied by: SELF documented in this encounter Plan of Treatment Upcoming Encounters Date Type Department Care Team (Late st Contact Info) Description 02/28/2024 11:15 AM EDT Imaging Radiology [address] [facility] [place] [address] [facility] [place] [address] 03/28/2024 12:30 PM EDT Appointment Vascular Lab [place] [address] [place] [address] 03/28/2024 1:00 PM EDT Appointment Vascular Lab [place] [address] [place] [address] 03/28/2024 1:45 PM EDT Office Visit Vascular Surg [place] [address] [place] [address] Miki Garcia MD [address] [place], [place] [id number] Scheduled Procedures Name Priority Associated Diagnoses Date/Ti me COLONOSCOPY FLEXIBLE PROXIMA L DIAGNOSTIC Recall Personal history of colonic polyps Health Maintenance Due Date Last Done Comments DISCUSS TOBACCO CESSATION (REFER TO SMARTSET #3296) 1955 Alpha-1 Antitrypsin 1973 Hepatitis C Screening [...] this encounter Medical Devices Implanted Type Area Audio Visual Equipment Rental Clerk Device Identifier Shelf Expiration Date Model / Serial / Lot Implant Tack 135cm 8mm 6 Tack - [id number] Implanted:Qt y: 1 on 01/13/2023 by Miki Garcia [place] [facility] [place] Popliteal Artery [employer] [id number] 02/25/2023 [id number] / / [id number] documented as of this encounter Procedures Procedure Name Priority Date/Time Associated Diagnosis Comments XR CHEST 2 VIEWS STAT 01/14/2024 10:5 9 AM EDT Wheezes Rhonchi at both lung bases Shortness of breath documented in this encounter Results * XR CHEST 2 VIEWS (01/14/2024 10:59 AM EDT) Anatomical Region Laterality Modality Chest Computed Radiogr aphy 01/14/2024 11:1 3 AM EDT Impressions 01/14/2024 11:11 AM EDT IMPRESSION No active disease. Narrative 01/14/2024 11:11 AM EDT EXAM XR CHEST 2 VIEWS - 01/14/2024 10:59 am HISTORY "SOB, labored breathing, wheezes, rhonichi" TECHNIQUE Frontal and lateral views of the chest were obtained. COMPARISON 10/19/2019 FINDINGS The lungs are clear. There is no pleural effusion or pneumothorax. The cardiomediastinal silhouette is within normal limits. Procedure Note Jayy Galicia MD - 01/14/2024 EXAM XR CHEST 2 VIEWS - 01/14/2024 10:59 am HISTORY "SOB, labored breathing, wheezes, rhonichi" TECHNIQUE Frontal and lateral views of the chest were obtained. COMPARISON 10/19/2019 FINDINGS The lungs are clear. There is no pleural effusion or pneumothorax. Thecardiomediastinal silhouette is within normal limits. IMPRESSION IMPRESSION No active disease. Keila Murphy PA-C RADIOLOGY ([facility]) documented in this encounter Visit Diagnoses Diagnosis Sinobronchitis- Primary Unspecified sinusitis (chronic) Wheezes Wheezing Rhonchi at both lung bases Shortness of breath documented in this encounter Administered Medications Active Administered Medications - up to 3 most recent administrations Medication Order MAR Action Action Date Dose Rate Site Albuterol Sulfate (Proventil) (2.5 MG/3ML) 0.083% inhalation solution 2.5 mg 2.5 mg, Nebulizer, ONCE PRN Other, Testing, Starting on Asha 03/25/23 at 1715, Until 03/24/24 at 1714, For 365 days, Only one type of albuterol product should be administered (Nebulizer or Inhaler). Please select and document on the appropriate albuterol product order. Given 01/14/2024 9:37 AM EDT 2.5 mg Given 04/19/2023 8:53 AM EDT 2.5 mg documented in this encounter Care Teams Laryngologist Relationship Specialty Start Date End Date Anastacio Shabazz DO [address] [place] [address] PCP - General Family Medicine 09/28/23 documented as of this encounter
--- OUTSIDE RECORDS SUMMARY | 2024-03-09 23:55 | External Medical Summary | Summary of Care ---
Author Name Unknown Organization [facility] Address [address] [place] [address] Phone [phone] Care Team Providers Care Wall To Wall Carpet Installer Name Role Phone Anastacio Shabazz DO Primary Care Provider [phone] Reason for Visit * Reason Comments eRx-Medication Refill Encounter Details Date Type Department Care Team (Late st Contact Info) Description 01/09/2024 Refill Family Practice [facility] [address] [facility] [place] [phone] Anastacio Shabazz DO [address] [place] [address] Iron deficiency anemia due to chronic blood loss Allergies No known active allergiesdocumented as of this encounter (statuses as of 01/11/2024) Medications Medication Sig Dispensed Refills Start Date [...] MG Oral TabletIndications: Coronary artery disease involving [place] coronary artery of [place] heart without angina pectoris,Hypertens [place]ane heart disease, [...] EVERY MORNING 90 Tablet 3 01/10/2024 Active Hospital, Clinic, or Other Facility Administered Medication Ordered Dose Route Frequency Start Date End Date Status Albuterol Sulfate (Proventil) (2.5 MG/3ML) 0.083% inhalation solution 2.5 mgIndications:COPD, moderate (HCC) 2.5 mg NEBULIZER ONCE PRN 03/25/2023 03/24/2024 Active documented as of this encounter (statuses as of 01/11/2024) Active Problems Problem Noted Date Diagnosed Date [...] as of this encounter (statuses as of 01/11/2024) Resolved Problems Problem Noted Date Diagnosed Date Resolved Date COPD, group A, by GOLD 2017 classification 02/05/2020 07/08/2023 Overview: Per COPD GOLD Classification Wheezing 03/20/2016 11/23/2016 Dyslipidemia, goal LDL below 70 06/19/2013 08/03/2018 documented as of this encounter (statuses as of 01/11/2024) Immunizations Name Administration Dates Next Due Pneumococcal [...] encounter Miscellaneous Notes * Telephone Encounter - Samira Engel RPh - 01/11/2024 9:27 AM EDT Refused Prescriptions: Disp Refills FeroSul 325 (65 Fe) MG Oral Tablet (Ferrou*60 Tab*5 Sig: TAKE ONE TABLET BY MOUTH EVERY MORNING AND TAKE ONE TABLET BY MOUTH AT BEDTIMERefused By: SAMIRA ENGEL for Refusal: Patient Should Contact Provider First * Telephone Encounter - Samira Engel RPh - 01/11/2024 9:26 AM EDT Patient not taking: Reported on 09/28/2023 documented in this encounter Plan of Treatment Upcoming Encounters Date Type Department Care Team (Late st Contact Info) Description 02/28/2024 11:15 AM EDT Imaging Radiology [address] [address] 03/28/2024 12:30 PM EDT Appointment [facility] [address] [address] 03/28/2024 1:00 PM EDT Appointment Vascular Lab [address] [address] 03/28/2024 1:45 PM EDT Office Visit Vascular Surg [address] [address] Miki Garcia MD [facility] [address] [place], [place] [phone] Scheduled Procedures Name Priority Associated Diagnoses Date/Ti me COLONOSCOPY FLEXIBLE PROXIMA L DIAGNOSTIC Recall Personal history of colonic polyps Health Maintenance Due Date Last Done Comments DISCUSS TOBACCO CESSATION (REFER TO SMARTSET #4238) 1955 Alpha-1 Antitrypsin 1973 Hepatitis C Screening [...] this encounter Medical Devices Implanted Type Area Industrial Real Estate Agent Device Identifier Shelf Expiration Date Model / Serial / Lot Implant Tack 135cm 8mm 6 Tack - [id number] Implanted:Qt y: 1 on 01/13/2023 by Miki Garcia MD at [place] [facility] [place] Right: Popliteal Artery [employer] [id number] 02/25/2023 [id number] / / [id number] documented as of this encounter Visit Diagnoses Diagnosis Iron deficiency anemia due to chronic blood loss Iron deficiency anemia secondary to blood loss (chronic) documented in this encounter Care Teams Wall To Wall Carpet Installer Relationship Specialty Start Date End Date Anastacio Shabazz DO [address] [place] [phone] PCP - General Family Medicine 09/28/23 documented as of this encounter
[2024-03-10] MEDS: KETOROLAC TROMETHAMINE 15 MG/ML VIAL IV ONE (04:47)
[2024-03-10] MEDS: SODIUM CHLORIDE 0.9% 1,000 ML IV ONE (04:51)
--- NOTE | 2024-03-10 14:30 | Orthopedic Consultation ---
Date of Consultation March 10, 2024 Assessment & Plan (1) Acute neck pain: Assessment cervicalgia. Plan at this time MRI available for review demonstrates motion artifact. There is adjacent level [id number]. there is no fractures noted. On exam his symptoms are more along the greater occipital nerve dis tribution. He may have some neuritis of the greater occipital nerve creating his headaches and scalp discomfort. At this point it is safe to remove his cervical collar. There is no indication for surgical invention at this time. History of Present Illness Reason for Consultation: Neck pain headaches Attending Physician: Ravi Miller MD History of Present Illness This is a 60-year-old male known to me the presents after fall yesterday. Apparently he had donated to units of blood became lightheaded and fell backwards. He states that he hit the back of his head after the fall. Most of his complaints at this time are in the occipital region. It is hyperesthetic to type touch to his scalp. He states at rest he is comfortable. He denies any pain rating into the interscapular region shoulders or arms. Denies any numbness or tingling in the arms. Denies any strength deficits affecting his arms. Allergies Allergy/AdvReac Type Severity Reaction Status Date / Time No Known Allergies Allergy Verified 03/09/24 09:19 Home Medications Medication Instructions Recorded Confirmed Type aspirin 81 mg tablet 81 mg PO QA 02/12/23 03/09/24 History atorvastatin 80 mg tablet 80 mg PO QA 02/12/23 03/09/24 History cilostazol 100 mg tablet 100 mg PO BID 02/12/23 03/09/24 History diltiazem HCl 180 mg 180 mg PO [facility] 02/12/23 03/09/24 History capsule,extended release 24 hr ezetimibe 10 mg tablet 10 mg PO QA 02/12/23 03/09/24 History Protonix 40 mg PO DAILY 03/09/24 03/09/24 History fluticasone 250 mcg-salmeterol 50 1 inh inhalation DAILY 03/09/24 03/09/24 History mcg/dose blistr powdr for inhalation fluticasone propionate 50 2 spray intranasal DAILY 03/09/24 03/09/24 History mcg/actuation nasal spray,suspension lisinopril 20 1 tab PO DAILY 03/09/24 03/09/24 History mg-hydrochlorothiazide 12.5 mg tablet Patient History Medical History History of bleeding peptic ulcer hx bleeding stomach ulcer , January 2023. COPD (chronic obstructive pulmonary disease) denies Tobacco use Dyslipidemia HTN (hypertension) Peripheral vascular disease Surgical History Hx of cataract extraction History of lung surgery for bleb 30 yr ago History of cardiac cath early 2022/pt can't remember why/denies stents "no issue" History of neck surgery x2 - mild limitation w/rom, can't sleep on stomach. History of colonoscopy History of endoscopy History of spinal fusion History of revascularization procedure of lower extremity 01/13/2023 fem/pop artery revascularization with stent angioplasty. [place] M[place] [facility] [place] History Other Heart disease Stroke Social History Smoking Status: Current every day smoker Tobacco Type: Cigarettes Cigarettes Per Day: 1ppd/advised npo; Second Hand Exposure: Yes; Do You Dip or Chew Tobacco: No; Tobacco Cessation Education Requested by Patient: No Hx Alcohol Use: Yes Alcohol type: beer Hx Substance Use: No Preferred Language: Kittitian Communication Ability: Effective [place] Trimmer Required: No Beliefs That Will Affect Care: None Current Living Situation: Spouse Current Living Situation Comment: and daughter Other Information That Helps Us Care for You: No Feels Safe at Home: Yes Safety Concerns: Feels Safe At This Time Assistive Devices: None Physical Exam Physical Exam: On exam he is able to sit up without difficulty. He has excellent strength detailed testing upper extremities. Sensory is symmetric and intact to cold and light touch. He has negative Shira sign. No Lhermitte's phenomenon or Spurling sign. He is hyperesthetic to touch along the left scalp. There is no abnormal skin markings. He is tender to palpation of the muscular of posterior cervical spine. He has good cervical range of motion without discomfort. Results & Data Vital Signs (Past 12 Hours) Vital Signs Temp Pulse Pulse Resp BP BP Pulse Ox 03/10/24 08:56 36.2 C L 70 18 173/86 H 95 03/10/24 07:30 71 03/10/24 02:47 36.6 C 81 20 153/79 H 92 O2 Del Method 03/10/24 08:56 Room Air 03/10/24 07:30 03/10/24 02:47 Room Air
--- NOTE | 2024-03-10 16:02 | Magnetic Resonance Report ---
MRI OF THE CERVICAL SPINE WITHOUT IV CONTRAST CLINICAL HISTORY: Neck pain. Recent fall. COMPARISON STUDY: CT of the cervical spine dated 03/08/2024. TECHNIQUE: MRI of the cervical spine was performed utilizing various T1 and T2-weighted sequences in the axial and sagittal planes. IV contrast was not administered for this examination. The examination is severely compromised by motion artifact. There is also susceptibility artifact from metallic spin al hardware. FINDINGS: Cervical spine: Vertebral body height and alignment is maintained throughout the cervical spine. Ther e is no MRI evidence of acute fracture. The atlantodental articulation is maintained. The spinous pro cesses appear intact. There is postsurgical change from anterior spinal fusion at C5-C7. Hardware at C7 has been removed. No destructive bony lesion is seen. Intervertebral discs: There has been discectomy at C5-C6 and C6-C7. Disc desiccation and minimal loss of height is seen at the remaining cervical levels. Spinal cord: The cervical cord is normal in morphology and signal intensity. C2-C3: A posterior disc osteophyte complex effaces the ventral subarachnoid space. Uncovertebral and facet arthropathy contribute to moderate right and mild left neural foraminal stenosis. C3-C4: A posterior disc osteophyte complex minimally effaces the ventral cord. There is a right later al disc bulge. In conjunction with facet arthropathy, there is severe right neural foraminal stenosis with probable impingement on the exiting right C4 nerve root. Uncovertebral and facet arthropathy co ntribute to moderate neural foraminal stenosis on the left. C4-C5: A posterior disc osteophyte complex abuts the ventral cord. Uncovertebral and facet arthropath y contribute to moderate to severe right and greater than left neural foraminal stenosis. C5-C6: A posterior disc osteophyte complex effaces the ventral subarachnoid space. Uncovertebral and facet arthropathy contribute to moderate right and moderate to severe left neural foraminal stenosis. C6-C7: The central canal is clear. Lateral disc bulge is seen bilaterally, left greater than right. I n conjunction with facet arthropathy, there is severe left and moderate to severe right neural forami nal stenosis. This may impinge in the exiting bilateral C7 nerve roots. C7-T1: Unremarkable. Soft tissues: The prevertebral and paraspinous soft tissues are normal in appearance. Brain parenchyma: The visualized brain parenchyma at the skull base is normal as imaged. IMPRESSION: 1. Severely motion compromised examination. 2. No acute bony abnormality is seen involving the cervical spine. 3. Postsurgical and spondylotic change as above. See discussion for detailed level by level analysis. 4. The cervical cord is normal in morphology and signal intensity. Dictated: 03/10/2024 1:15 PM Transcribed: 03/10/2024 1:37 PM Augusto [id number] PAUL_Nixon [id number] Electronically signed by: Scott Conn M.D. 03/10/2024 4:01 PM
[2024-03-10] MEDS: GABAPENTIN 100 MG CAP PO SCH (16:13)
--- NOTE | 2024-03-10 16:25 | Hospitalist Progress Note ---
Date of Service March 10, 2024 Assessment & Plan (1) Syncope and collapse: Plan: Syncope Likely secondary to orthostasis Patient noted to be hypotensive prior to ED transport. Rule out arrhythmia, structural cardiac pathology as etiology of syncope. Blood pressure systolic 180s likely secondary to pain EKG no signs of acute ischemia or infarct Echocardiogram pending Usual BP meds resumed As needed hydralazine will be ordered 03/09 Blood pressure elevated Likely secondary to discomfort HCTZ on hold in light of episode of hypotension at home Usual lisinopril ordered Start amlodipine 5 mg p.o. daily Hydralazine as needed for systolic BP more than 160 Severe cervicalgia Status post fall CT cervical spine: There is anterior cervical discectomy and fusion and C5-C7, without evidence of hardware complication. Compared to prior CT, interbody fusion at the C6-C7 level is new. There is multilevel disc, facet, and uncovertebral joint degeneration. Disc bulges/disc-osteophyte complexes produce mild to moderate multilevel central spinal canal stenosis. There are varying degrees of bilateral foraminal narrowing. No focal neurologic symptoms at this point Continue pain control with as needed morphine, tizanidine, Tylenol Cervical collar ordered Orthopedic spine consulted, awaiting Dr. Miki Taylor's callback 03/[address] Taylor consulted, patient recommendations Start gabapentin 100 mg p.o. 3 times daily Continue present pain management regimen Traumatic scalp wound secondary to head trauma. - Monitor closely hx CAD, PVD as per records - Plan to resume aspirin, tomorrow hyperlipidemia, on statin and ezetimibe Rx. COPD, lung status at baseline PUD, on PPI ongoing tobacco abuse Hold antiplatelet Rx for now given traumatic scalp wound, resume if hemoglobin stable and bleeding resolved. Nicotine patch as needed DVT prophylaxis. TEDS, traumatic scalp bleed, SCDs contraindicated given history PAD Full code plan of care discussed with patient in detail and at length all questions answered he is understanding, agreeable, comfortable with the plan of care Admission and Anticipated Discharge Date Admission Date: March 09, 2024 Subjective Follow-up for syncope, cervicalgia, etc. Seen resting in bed, sitting up, not in distress States neck pain is somewhat better compared to yesterday, but still significant Able to move his neck a little bit more today Still without dysphagia, dyspnea, weakness or numbness No other new symptoms Review of Systems Review of Systems: all noted and negative except for above Physical Exam Physical Exam: General- oriented x 3, not in distress, speaks in sentences with no effort or accessory muscle use Eyes- anicteric Neck- Positive tender to mild palpation, no hematoma, no erythema, full range of motion due to pain but improved compared to yesterday no JVD Lungs- clear breath sounds bilaterally, no rales/wheezes Heart- normal rate, regular rhythm; no murmurs Abdomen- normal bowel sounds, nondistended, soft, nontender Extremities- no pretibial edema, no calf tenderness Neuro- alert, oriented x 3; no gross focal neurologic deficits Skin- warm & dry Results & Data Results & Data Vital Signs (Past 12 Hours) Vital Signs Temp Pulse Pulse Resp BP BP Pulse Ox 03/10/24 16:11 85 03/10/24 15:12 36.9 C 86 18 168/75 H 94 03/10/24 08:56 36.2 C L 70 18 173/86 H 95 03/10/24 07:30 71 O2 Del Method 03/10/24 16:11 03/10/24 15:12 Room Air 03/10/24 08:56 Room Air 03/10/24 07:30 all noted and reviewed including below
[2024-03-10] MEDS: hydrALAZINE HCL 25 MG TAB PO SCH (17:36)
[2024-03-11] MEDS: hydroCHLOROthiazide 25 MG TAB PO SCH (10:48)
[2024-03-11] MEDS: POLYETHYLENE (MIRALAX) 17 GM PACK PO SCH (10:48)
[2024-03-11] MEDS: methylPREDNISolone 40 MG in SYRINGE 0 ML IV ONE (11:26)
[2024-03-11 13:08] LABS: Codeine Urine NEGATIVE ng/mL (<50); Hydrocodone Urine NEGATIVE ng/mL (<50); Hydromor Urine 352 ng/mL (<50); Morphine Urine >10000 ng/mL (<50); Norhydrocodone Conf Ur NEGATIVE ng/mL (<50); Noroxycodone Urine NEGATIVE ng/mL (<50); Oxycodone Urine NEGATIVE ng/mL (<50); Oxymorph Urine NEGATIVE ng/mL (<50)
--- NOTE | 2024-03-11 13:36 | Hospitalist Progress Note ---
Date of Service March 11, 2024 Assessment & Plan (1) Syncope and collapse: Plan: Syncope Likely secondary to orthostasis Patient noted to be hypotensive prior to ED transport. Rule out arrhythmia, structural cardiac pathology as etiology of syncope. Blood pressure systolic 180s likely secondary to pain EKG no signs of acute ischemia or infarct Echocardiogram pending Usual BP meds resumed As needed hydralazine will be ordered 03/09 Blood pressure elevated Likely secondary to discomfort HCTZ on hold in light of episode of hypotension at home Usual lisinopril ordered Start amlodipine 5 mg p.o. daily Hydralazine as needed for systolic BP more than 160 03/11 Blood pressure improving Hydralazine 3 times daily added On usual lisinopril, HCTZ Severe cervicalgia Status post fall CT cervical spine: There is anterior cervical discectomy and fusion and C5-C7, without evidence of hardware complication. Compared to prior CT, interbody fusion at the C6-C7 level is new. There is multilevel disc, facet, and uncovertebral joint degeneration. Disc bulges/disc-osteophyte complexes produce mild to moderate multilevel central spinal canal stenosis. There are varying degrees of bilateral foraminal narrowing. No focal neurologic symptoms at this point Continue pain control with as needed morphine, tizanidine, Tylenol Cervical collar ordered Orthopedic spine consulted, awaiting Dr. Miki Taylor's callback 03/[address] Taylor consulted, patient recommendations Start gabapentin 100 mg p.o. 3 times daily Continue present pain management regimen 03/11 increase Gabapentin 200mg TID Solu-medrol 40mg IV added repeat CT head today Traumatic scalp wound secondary to head trauma - Monitor closely hx CAD, PVD as per records - Plan to resume aspirin if CT head does not reveal hematoma hyperlipidemia, on statin and ezetimibe Rx. COPD, lung status at baseline PUD, on PPI ongoing tobacco abuse DVT prophylaxis. Lovenox SC if CT head ok Full code plan of care discussed with patient in detail and at length all questions answered he is understanding, agreeable, comfortable with the plan of care Admission and Anticipated Discharge Date Admission Date: March 09, 2024 Subjective Follow-up for severe neck pain, following fall, syncopal episode, etc. Seen resting in bed, sleeping but easily awakened Still having persistent neck pain mostly posterior Denies focal weakness or numbness, dysphagia, dyspnea No other new symptoms Review of Systems Review of Systems: all noted and negative except for above Physical Exam Physical Exam: General- oriented x 3, not in distress, speaks in sentences with no effort or accessory muscle use Eyes- anicteric Neck- no JVD Positive tenderness posterior neck region No hematoma, erythema Full range of motion due to pain Lungs- clear breath sounds bilaterally, no rales/wheezes Heart- normal rate, regular rhythm; no murmurs Abdomen- normal bowel sounds, nondistended, soft, nontender Extremities- no pretibial edema, no calf tenderness Neuro- alert, oriented x 3; no gross focal neurologic deficits Skin- warm & dry Results & Data Results & Data Vital Signs (Past 12 Hours) Vital Signs Temp Pulse Pulse Resp BP Pulse Ox O2 Del Method 03/11/24 12:21 36.8 C 62 18 133/71 92 Room Air 03/11/24 12:14 77 03/11/24 07:48 36.6 C 78 18 173/84 H 91 Room Air 03/11/24 04:01 36.6 C 61 18 152/84 H 94 Room Air all noted and reviewed including below
--- NOTE | 2024-03-11 14:44 | CT Scan Report ---
CT head/brain wo con CLINICAL HISTORY: 68 years-old Male with ff up, head trauma. Acute head trauma TECHNIQUE: Multiple axial CT images of the head were obtained without contrast. A dose lowering tech nique was utilized adhering to the principles of ALARA. CT DOSE: 625.8 mGy.cm COMPARISON: Head CT 03/08/2024 FINDINGS: No acute intracranial hemorrhage, midline shift, intracranial mass, hydrocephalus, territorial ischem ia or abnormal extra-axial collection. Involutional changes with advanced chronic microvascular ische william disease. Unchanged ventriculomegaly, likely secondary to the brain atrophy. The calvarium is intact. The paranasal sinuses, mastoid air cells, and middle ear cavities are clear . IMPRESSION: No acute intracranial abnormality or calvarial fracture. ACT 112: Negative or not required by law. The above report was generated using voice recognition software. It may contain grammatical, syntax o r spelling errors. Electronically signed by: Nav Grossman M.D. 03/11/2024 2:42 PM
[2024-03-11] MEDS: GABAPENTIN 100 MG CAP PO SCH (14:56)
[2024-03-11] MEDS: ASPIRIN 81 MG ECTAB PO SCH (17:26)
[2024-03-11] MEDS: ENOXAPARIN INJ 40 MG/0.4 ML SYR SQ SCH (17:26)
[2024-03-11] MEDS: LACTULOSE SYRUP 30 GM/45 ML UDP PO STA (21:02)
[2024-03-11] MEDS: DOCUSATE SODIUM/SENNA 50/8.6MG TAB PO SCH (21:03)
[2024-03-12 07:29] LABS: Basophils # (auto) 0.01 K/uL (0.00-0.20); Basophils % (auto) 0.1 %; Hematocrit (blood only) 39.1 % (42.0-52.0); Hemoglobin 14.2 g/dl (14.0-18.0); Immature Granulocytes # (auto) 0.04 K/uL (0.01-0.20); Immature Granulocytes % (auto) 0.4 %; Lymphocytes # (auto) 0.94 K/uL (1.20-3.40); Lymphocytes % (auto) 10.2 %; Mean Corpuscular Hemoglobin 32.6 pg (25.0-34.0); Mean Corpuscular Hgb Conc 36.3 g/dL (32.0-36.0); Mean Corpuscular Volume 89.9 fL (80.0-100.0); Mean Platelet Volume 9.8 fL (9.4-12.4); Monocytes # (auto) 0.95 K/uL (0.11-0.59); Monocytes % (auto) 10.3 %; Neutrophils # (auto) 7.26 K/uL (1.40-6.50); Platelet Count 230 K/uL (130-400); RDW Standard Deviation 39.4 fL (36.4-46.3); Red Blood Count 4.35 M/uL (4.70-6.10)
[2024-03-12 08:01] LABS: BUN Creatinine Ratio 18.2 (10-20); Calcium 9.4 mg/dl (8.6-10.3); Creatinine Clr Calc Pharmacy 114.1 ml/min; Est GFR (African American) 115.1 ml/min; Est GFR (Non-African American) 99.3 ml/min; Potassium 4.4 mmol/L (3.5-5.1)
[2024-03-12] MEDS: predniSONE 20 MG TAB PO SCH (10:40)
--- NOTE | 2024-03-12 13:33 | Hospitalist Progress Note ---
Date of Service March 12, 2024 Assessment & Plan (1) Syncope and collapse: Plan: Syncope Likely secondary to orthostasis Patient noted to be hypotensive prior to ED transport. Rule out arrhythmia, structural cardiac pathology as etiology of syncope. Blood pressure systolic 180s likely secondary to pain EKG no signs of acute ischemia or infarct Echocardiogram: EF 60-65%, Gr1 diastolic dysfunction, mild aortic valve sclerosis, no significant aortic valvular stenosis Usual BP meds resumed As needed hydralazine will be ordered 03/09 Blood pressure elevated Likely secondary to discomfort HCTZ on hold in light of episode of hypotension at home Usual lisinopril ordered Start amlodipine 5 mg p.o. daily Hydralazine as needed for systolic BP more than 160 03/11 Blood pressure improving Hydralazine 3 times daily added On usual lisinopril, HCTZ 03/12 no arrhythmia on tele Hydralazine 3 times daily added On usual lisinopril, HCTZ monitor Severe cervicalgia Status post fall CT cervical spine: There is anterior cervical discectomy and fusion and C5-C7, without evidence of hardware complication. Compared to prior CT, interbody fusion at the C6-C7 level is new. There is multilevel disc, facet, and uncovertebral joint degeneration. Disc bulges/disc-osteophyte complexes produce mild to moderate multilevel central spinal canal stenosis. There are varying degrees of bilateral foraminal narrowing. No focal neurologic symptoms at this point Continue pain control with as needed morphine, tizanidine, Tylenol Cervical collar ordered Orthopedic spine consulted, awaiting Dr. Miki Taylor's callback 03/[address] Taylor consulted, patient recommendations Start gabapentin 100 mg p.o. 3 times daily Continue present pain management regimen 03/11 increase Gabapentin 200mg TID Solu-medrol 40mg IV added repeat CT head today 03/12 gradually improving start Prednisone 40mg po daily continue Gabapentin 200mg TID continue PRN Oxy, Morphine, Tizanidine PT/OT eval Pain Mgt service consulted Traumatic scalp wound secondary to head trauma - Monitor closely hx CAD, PVD as per records - ASA resumed hyperlipidemia, on statin and ezetimibe Rx. COPD, lung status at baseline PUD, on PPI ongoing tobacco abuse DVT prophylaxis. Lovenox SC Full code Disposition anticipate d/c home when pain is much better plan of care discussed with patient in detail and at length all questions answered he is understanding, agreeable, comfortable with the plan of care Admission and Anticipated Discharge Date Admission Date: March 09, 2024 Subjective ff up for cervicalgia, s/p fall, etc seen resting in bed, comfortable sitting up states he still has significant neck pain- about 10, compared to 07/06 yesterday no headache, dizziness, nausea, focal weakness/numbness able to move neck better today no chest pain, palpitations no other new symptoms Review of Systems Review of Systems: all noted and negative except for above Physical Exam Physical Exam: General- oriented x 3, not in distress, speaks in sentences with no effort or accessory muscle use Head- healing wound posterior aspect no edema/erythema/hematoma/tenderness/bleeding/discharge Eyes- anicteric Neck- mild tenderness, better ROM no JVD Lungs- clear breath sounds bilaterally, no crackles/wheezing Heart- normal rate, regular rhythm; no murmurs Abdomen- normal bowel sounds, nondistended, soft, no tenderness Extremities- no pretibial edema, no calf tenderness Neuro- alert, oriented x 3; no gross focal neurologic deficits Skin- warm & dry Results & Data Results & Data Vital Signs (Past 12 Hours) Vital Signs Temp Pulse Pulse Pulse Resp BP BP 03/12/24 12:00 36.4 C L 60 18 148/73 H 03/12/24 09:10 71 03/12/24 07:40 36.6 C 72 18 162/79 H 03/12/24 02:45 36.3 C L 68 18 173/89 H Pulse Ox O2 Del Method 03/12/24 12:00 95 Room Air 03/12/24 09:10 03/12/24 07:40 92 Room Air 03/12/24 02:45 94 Room Air all noted and reviewed including below
--- NOTE | 2024-03-13 08:47 | Pain Management Consultation ---
Date of Consultation March 13, 2024 Assessment & Plan (1) Acute neck pain: (2) Syncope and collapse: (3) Closed head injury: Encounter type: sequela Qualified Code(s): S09.90XS - Unspecified injury of head, sequela Plan 1. Recommend continuation of oral Prednisone. 2. I would not recommend occipital nerve blocks given that the hyperalgesia is diffuse. Occipital nerve block would not have any effect on neck pain, anterior facial pain, or upper chest. I would also be concerned that the nerve blocks could exacerbate his pain. 3. Recommend increasing Gabapentin to 300mg three times daily. Order placed. 4. Could consider increasing Tizanidine dosage to 4mg but will hold for now given that Gabapentin dosage is being increased today. 5. He does have Oxycodone 5mg x 4 hours ordered and IV Morphine PRN breakthrough pain. 6. Nothing to offer interventionally. 7. Will peripherally follow. Please contact with any questions or concerns. History of Present Illness Reason for Consultation: cephalgia, cervicalgia Attending Physician: Ravi Miller MD History of Present Illness This is a 68-year-old male that has been admitted for hypotension, fall, intractable pain. He did donate blood and later in the day he was at the [employer] parking [employer], felt lightheaded and hit onto the cement ground. He states that the back of his head was the first to the ground. Since that time he has been experiencing significant pain along the left greater than right upper neck, upper chest, along the occipital region, and along the lower face. He describes a burning sensation that is sensitive to the touch. He does find that talking and turning his neck from side to side aggravates the pain. There is a significant history of C5-[address] Taylor did evaluate the patient and there are no surgical indications at this time. He is reporting pain at a 7/10 currently which is an improvement from 10/10 when he arrived. Allergies Allergy/AdvReac Type Severity Reaction Status Date / Time No Known Allergies Allergy Verified 03/09/24 09:19 Home Medications Medication Instructions Recorded Confirmed Type aspirin 81 mg tablet 81 mg PO QAM 02/12/23 03/09/24 History atorvastatin 80 mg tablet 80 mg PO QAM 02/12/23 03/09/24 History cilostazol 100 mg tablet 100 mg PO BID 02/12/23 03/09/24 History diltiazem HCl 180 mg 180 mg PO QAM 02/12/23 03/09/24 History capsule,extended release 24 hr ezetimibe 10 mg tablet 10 mg PO QAM 02/12/23 03/09/24 History Protonix 40 mg PO DAILY 03/09/24 03/09/24 History fluticasone 250 mcg-salmeterol 50 1 inh inhalation DAILY 03/09/24 03/09/24 History mcg/dose blistr powdr for inhalation fluticasone propionate 50 2 spray intranasal DAILY 03/09/24 03/09/24 History mcg/actuation nasal spray,suspension lisinopril 20 1 tab PO DAILY 03/09/24 03/09/24 History mg-hydrochlorothiazide 12.5 mg tablet Patient History Medical History History of bleeding peptic ulcer hx bleeding stomach ulcer , January 2023. COPD (chronic obstructive pulmonary disease) denies Tobacco use Dyslipidemia HTN (hypertension) Peripheral vascular disease Surgical History Hx of cataract extraction History of lung surgery for bleb 30 yr ago History of cardiac cath early 2022/pt can't remember why/denies stents "no issue" History of neck surgery x2 - mild limitation w/rom, can't sleep on stomach. History of colonoscopy History of endoscopy History of spinal fusion History of revascularization procedure of lower extremity 01/13/2023 fem/pop artery revascularization with stent angioplasty. By Dr. Miki Garcia at [facility] [place] Family History Other Heart disease Stroke Social History Smoking Status: Current every day smoker Tobacco Type: Cigarettes Cigarettes Per Day: 1ppd/advised npo; Second Hand Exposure: Yes; Do You Dip or Chew Tobacco: No; Tobacco Cessation Education Requested by Patient: No Hx Alcohol Use: Yes Alcohol type: beer Hx Substance Use: No Preferred Language: Vietnamese Communication Ability: Effective Production Counter Required: No Beliefs That Will Affect Care: None Current Living Situation: Spouse Current Living Situation Comment: and daughter Other Information That Helps Us Care for You: No Feels Safe at Home: Yes Safety Concerns: Feels Safe At This Time Assistive Devices: None Physical Exam Physical Exam: GENERAL: This is a 68 year old male in no acute distress sitting in the hospital bed. During exam he is frequently jumping in pain. HEAD/FACE: + occipital hematoma. Diffuse allodynia along the occipital scalp and lower face. EYES: No drainage or conjunctival injection. ENT: Nose without bleeding or discharge. Oral mucosa moist. NECK: Full ROM. Allodynia along the upper cervical region, left greater than right. No swelling or masses noted. RESPIRATORY: Patient with unlabored breathing. No signs of respiratory distress. CHEST/AXILLA: Chest movement symmetrical. Allodynia along the upper chest. ABDOMEN/GI: No distension BACK: Moves without difficulty SKIN: Ceex Haci, warm and dry. No rash noted. MS/EXTREMITY: No swelling, no deformities. Moving extremities appropriately. NEURO: Alert and appears oriented. Speech is fluent. Cranial Nerves are grossly intact. PSYCH: Alert, pleasant, affect is calm Results (Pain Clinic) Diagnostic Review MRI Findings: MRI OF THE CERVICAL SPINE WITHOUT IV CONTRAST CLINICAL HISTORY: Neck pain. Recent fall. COMPARISON STUDY: CT of the cervical spine dated 03/08/2024. TECHNIQUE: MRI of the cervical spine was performed utilizing various T1 and T2- weighted sequences in the axial and sagittal planes. IV contrast was not administered for this examination. The examination is severely compromised by motion artifact. There is also susceptibility artifact from metallic spinal hardware. FINDINGS: Cervical spine: Vertebral body height and alignment is maintained throughout the cervical spine. There is no MRI evidence of acute fracture. The atlantodental articulation is maintained. The spinous processes appear intact. There is postsurgical change from anterior spinal fusion at C5-C7. Hardware at C7 has been removed. No destructive bony lesion is seen. Intervertebral discs: There has been discectomy at C5-C6 and C6-C7. Disc desiccation and minimal loss of height is seen at the remaining cervical levels. Spinal cord: The cervical cord is normal in morphology and signal intensity. C2-C3: A posterior disc osteophyte complex effaces the ventral subarachnoid space. Uncovertebral and facet arthropathy contribute to moderate right and mild left neural foraminal stenosis. C3-C4: A posterior disc osteophyte complex minimally effaces the ventral cord. There is a right lateral disc bulge. In conjunction with facet arthropathy, there is severe right neural foraminal stenosis with probable impingement on the exiting right C4 nerve root. Uncovertebral and facet arthropathy contribute to moderate neural foraminal stenosis on the left. C4-C5: A posterior disc osteophyte complex abuts the ventral cord. Uncovertebral and facet arthropathy contribute to moderate to severe right and greater than left neural foraminal stenosis. C5-C6: A posterior disc osteophyte complex effaces the ventral subarachnoid space. Uncovertebral and facet arthropathy contribute to moderate right and moderate to severe left neural foraminal stenosis. C6-C7: The central canal is clear. Lateral disc bulge is seen bilaterally, left greater than right. In conjunction with facet arthropathy, there is severe left and moderate to severe right neural foraminal stenosis. This may impinge in the exiting bilateral C7 nerve roots. C7-T1: Unremarkable. Soft tissues: The prevertebral and paraspinous soft tissues are normal in appearance. Brain parenchyma: The visualized brain parenchyma at the skull base is normal as imaged. IMPRESSION: 1. Severely motion compromised examination. 2. No acute bony abnormality is seen involving the cervical spine. 3. Postsurgical and spondylotic change as above. See discussion for detailed level by level analysis. 4. The cervical cord is normal in morphology and signal intensity. Dictated: 03/10/2024 1:15 PM Transcribed: 03/10/2024 1:37 PM Augusto [id number] [email or web address]_[email or web address] [id number] Electronically signed by: Scott Conn M.D. 03/10/2024 4:[address] Findings: CT head/brain wo con CLINICAL HISTORY: 68 years-old Male with ff up, head trauma. Acute head trauma TECHNIQUE: Multiple axial CT images of the head were obtained without contrast. A dose lowering technique was utilized adhering to the principles of ALARA. CT DOSE: 625.8 mGy.cm COMPARISON: Head CT 03/08/2024 FINDINGS: No acute intracranial hemorrhage, midline shift, intracranial mass, hydrocephalus, territorial ischemia or abnormal extra-axial collection. Involutional changes with advanced chronic microvascular ischemic disease. Unchanged ventriculomegaly, likely secondary to the brain atrophy. The calvarium is intact. The paranasal sinuses, mastoid air cells, and middle ear cavities are clear. IMPRESSION: No acute intracranial abnormality or calvarial fracture. ACT 112: Negative or not required by law. The above report was generated using voice recognition software. It may contain grammatical, syntax or spelling errors. Electronically signed by: Nav Grossman M.D. 03/11/2024 2:42 PM Exam(s): CT FACIAL Without Contrast EXAM: CT Maxillofacial Without Intravenous Contrast CLINICAL HISTORY: Reason for exam: syncope, fall, head/neck pain. TECHNIQUE: Axial computed tomography images of the face without intravenous contrast. CTDI is 66.02 mGy and DLP is 3006.22 mGy-cm. Automated exposure control was utilized for the study. A dose lowering technique was utilized adhering to the principles of ALARA. COMPARISON: No relevant prior studies available. FINDINGS: Bones/joints: No acute fracture. Soft tissues: Unremarkable. Orbits: Unremarkable. Sinuses: Unremarkable. No air-fluid levels. IMPRESSION: Normal maxillofacial CT.
[2024-03-13] MEDS: GABAPENTIN 300 MG CAP PO SCH (09:41)
--- NOTE | 2024-03-13 12:12 | Discharge Summary ---
Discharge Summary Date of Service March 13, 2024 Principal Dx & Hospital Course #1 = Principal Diagnosis (1) Syncope and collapse: Syncope Likely secondary to orthostasis Patient noted to be hypotensive prior to ED transport. Blood pressure systolic 180s likely secondary to pain EKG no signs of acute ischemia or infarct Echocardiogram: EF 60-65%, Gr1 diastolic dysfunction, mild aortic valve sclerosis, no significant aortic valvular stenosis BP elevated, felt 2/2 pain His home BP meds were continued, hydralazine 10mg tid was initiated BP still mildly elevated, but again likely pain related No telemetry events noted Recommend outpatient ZIO patch Severe cervicalgia Status post fall --CT cervical spine: There is anterior cervical discectomy and fusion and C5-C7, without evidence of hardware complication. Compared to prior CT, interbody fusion at the C6-C7 level is new.There is multilevel disc, facet, and uncovertebral joint degeneration. Disc bulges/disc-osteophyte complexes produce mild to moderate multilevel central spinal canal stenosis. There are varying degrees of bilateral foraminal narrowing. --MRI cervical spine:1. Severely motion compromised examination.2. No acute bony abnormality is seen involving the cervical spine.3. Postsurgical and spondylotic change as above. See discussion for detailed level by level analysis.4. The cervical cord is normal in morphology and signal intensity. Ortho spine consulted: felt symptoms likely related to occipital neuralgia vs cervicalgia Started on prednisone, oxy IR, tizanidine, gabapentin Seen and evaluated by pain management who did not have anything else to add except increasing gabapentin Continue ICE he has had gradual improvement in range of motion and pain is tolerable to point pt feels he can go home and manage Traumatic scalp wound secondary to head trauma - Monitor closely hx CAD, PVD as per records - ASA resumed hyperlipidemia, on statin and ezetimibe Rx. COPD, lung status at baseline PUD, on PPI ongoing tobacco abuse - encourage cessation DVT prophylaxis. Lovenox SC Full code Disposition Discharge to home today Pt was seen and examined in collaboration with Dr. Miller, please see addendum Notes For Next Care Provider It is felt pt may have occipital neuralgia. He was started on gabapentin 300mg three times daily and this may need to be increased. His blood pressure was elevated during hospital stay which was felt to be related to pain. Recommend patient have an outpatient ZIO patch due to passing out. Medication Changes From Visit Complete prednisone taper as follows * 40 mg daily for additional 3 days, starting 03/14/2024 * 30 mg daily for additional 3 days * 20 mg daily for additional 3 days * 10 mg daily for additional 3 days then stop Gabapentin 300 mg 3 times a day for nerve pain Oxycodone 5 mg every 6 hours as needed for severe pain Tizanidine 1 mg, take half a tablet every 8 hours as needed for muscle spasm. You are encouraged to utilize Tylenol 650 mg every 4 hours as needed for mild to moderate pain. You are encouraged to use [id number] stool softener docusate sodium 1 tablet twice daily while taking oxycodone to prevent constipation. Please continue all medications as prescribed. Admission HPI Per Admitting Provider History obtained from patient, family, and records. Medical history significant for CAD, rheumatic heart disease as per records, PVD, hypertension, hyperlipidemia, COPD, PUD, ongoing tobacco abuse. Last confinement January 2023 for UGIB secondary to duodenal ulcer. Patient fell at a [facility] after passing out while standing up. Posterior headache and bleeding wound noted along with neck pain. No arm or leg weakness. Denies chest pain, or SOB. No witnessed seizures, tongue biting or incontinence. Episode witnessed by patient's . Blood donation yesterday afternoon without complications as per patient. SBP 80s upon EMS arrival at the [facility]. 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 Admission Exam Per Admitting Provider Physical Exam Physical Exam: GENERAL: uncomfortable, no respiratory distress SKIN: Normal color, warm HEENT: [place] palpebral conjunctivae, no ptosis, dry buccal mucosa NECK : Decreased range of motion, minimal cervical tenderness CHEST : CTA, no tenderness HEART : RRR, no obvious murmurs ABDOMEN: Some distention, nontender EXTREMITIES : No LE swelling/tenderness, no other conspicuous deformities noted NEUROLOGIC : Coherent, no facial asymmetry, no other gross focality Discharge Exam Gen: WD/WN, NAD, A&O x3 HEENT: Normocephalic, atraumatic, conjunctivae moist, sclerae anicteric, mucous membranes moist. Neck: arom to neck with lateral flex/ext and hyperflex Lung: Clear to Auscultation bilaterally, no wheezes/rales/rhonchi Heart: Regular rate, regular rhythm, no murmurs, rubs, or gallops Abdomen: Soft, NT, ND +BS x 4 Extremities: No edema Skin: Warm, no rash, negative turgor. Updated Medication List Medication Instructions Recorded Confirmed Type aspirin 81 mg tablet 81 mg PO QAM 02/12/23 03/09/24 History atorvastatin 80 mg tablet 80 mg PO QAM 02/12/23 03/09/24 History cilostazol 100 mg tablet 100 mg PO BID 02/12/23 03/09/24 History diltiazem HCl 180 mg 180 mg PO QAM 02/12/23 03/09/24 History capsule,extended release 24 hr ezetimibe 10 mg tablet 10 mg PO QA 02/12/23 03/09/24 History Protonix 40 mg PO DAILY 03/09/24 03/09/24 History fluticasone 250 mcg-salmeterol 50 1 inh inhalation DAILY 03/09/24 03/09/24 History mcg/dose blistr powdr for inhalation fluticasone propionate 50 2 spray intranasal DAILY 03/09/24 03/09/24 History mcg/actuation nasal spray,suspension lisinopril 20 1 tab PO DAILY 03/09/24 03/09/24 History mg-hydrochlorothiazide 12.5 mg tablet gabapentin 300 mg capsule 300 mg PO TID #90 caps 03/13/24 Rx oxycodone 5 mg tablet 5 mg PO Q4H PRN pain #10 tabs 03/13/24 Rx prednisone 20 mg tablet 20 mg PO DAILY 11 days #11 tabs 03/13/24 Rx tizanidine 4 mg tablet 2 mg (1/2 x 4 mg) PO TID PRN 03/13/24 Rx muscle spasticity #20 tabs Hospital Stay Data Consultations 03/09/24 02:22 ED Decision to Admit Stat 03/09/24 15:24 Consult Orthopedic Surgery Routine 03/12/24 09:35 Consult Pain Management Routine Diagnostic Imagining Performed Abdomen/Pelvis CT 03/08/24 22:21 Exam(s): CT ABDOMEN + PELVIS Without Contrast EXAM: CT Abdomen and Pelvis Without Intravenous Contrast CLINICAL HISTORY: Reason for exam: syncope, fall, head/neck pain. TECHNIQUE: Axial computed tomography images of the abdomen and pelvis without intravenous contrast. CTDI is 66.02 mGy and DLP is 3006.22 mGy-cm. Automated exposure control was utilized for the study. A dose lowering technique was utilized adhering to the principles of ALARA. COMPARISON: No relevant prior studies available. FINDINGS: Lung bases: Unremarkable. No mass. No consolidation. ABDOMEN: Liver: Subcentimeter left hepatic lobe cyst. No evidence of hepatic injury. Gallbladder and bile ducts: Unremarkable. No calcified stones. No ductal dilation. Pancreas: Unremarkable. No ductal dilation. No evidence of pancreatic injury. Spleen: Unremarkable. No evidence of splenic injury. Adrenals: Unremarkable. No evidence of adrenal injury. Kidneys and ureters: Unremarkable. No evidence of renal injury. No hydronephrosis or radiopaque stones. Stomach and bowel: Unremarkable. No mucosal thickening. No bowel obstruction, inflammation, or injury. PELVIS: Appendix: Normal appendix. Bladder: Unremarkable. No stones. Reproductive: Unremarkable as visualized. ABDOMEN and PELVIS: Intraperitoneal space: Unremarkable. No free fluid or free air. Bones/joints: No acute fracture or dislocation. Posterior decompression, posterior hardware fixation, and interbody fusion at L5-S1. Soft tissues: Unremarkable. Vasculature: Atherosclerosis without aortic aneurysm. Lymph nodes: Unremarkable. No enlarged lymph nodes. IMPRESSION: No acute findings in the abdomen or pelvis. Electronically signed by: Olesya Luke M.D. 03/08/24 23:[address] 03/08/24 22:21 Exam(s): CT C SPINE EXAM: CT Cervical Spine Without Intravenous Contrast CLINICAL HISTORY: Reason for exam: syncope, fall, head/neck pain. TECHNIQUE: Axial computed tomography images of the cervical spine without intravenous contrast. CTDI is 66.02 mGy and DLP is 3006.22 mGy-cm. Automated exposure control was utilized for the study. A dose lowering technique was utilized adhering to the principles of ALARA. COMPARISON: 01/25/13 FINDINGS: Bones are osteopenic. Vertebral body height and alignment are maintained. There is no acute fracture or traumatic subluxation. There is anterior cervical discectomy and fusion and C5-C7, without evidence of hardware complication. Compared to prior CT, interbody fusion at the C6-C7 level is new. There is multilevel disc, facet, and uncovertebral joint degeneration. Disc bulges/disc-osteophyte complexes produce mild to moderate multilevel central spinal canal stenosis. There are varying degrees of bilateral foraminal narrowing. Lung apices demonstrate paraseptal emphysema. There is no prevertebral soft tissue swelling. There are bilateral carotid calcifications. IMPRESSION: No acute osseous findings. Electronically signed by: Olesya Luke M.D. 03/08/24 23:[address] 03/08/24 22:21 Exam(s): CT CHEST Without Contrast EXAM: CT Chest Without Intravenous Contrast CLINICAL HISTORY: Reason for exam: syncope, fall. TECHNIQUE: Axial computed tomography images of the chest without intravenous contrast. CTDI is 66.02 mGy and DLP is 3006.22 mGy-cm. Automated exposure control was utilized for the study. A dose lowering technique was utilized adhering to the principles of ALARA. COMPARISON: No relevant prior studies available. FINDINGS: Lungs: Biapical paraseptal emphysema. Centrilobular emphysema. No consolidation or mass. Pleural space: Unremarkable. No pneumothorax. No significant effusion. Heart: Coronary artery atherosclerosis. Mild cardiomegaly. No pericardial effusion. Bones/joints: Partially imaged anterior cervical discectomy and fusion in the lower cervical spine. Disc degeneration in the thoracic spine. No acute fracture or dislocation. Soft tissues: Unremarkable. Vasculature: No aortic aneurysm. Normal caliber main pulmonary artery. Lymph nodes: Unremarkable. No adenopathy. IMPRESSION: 1. No acute traumatic findings. 2. Emphysema, an independent risk factor for lung cancer. Consider patient enrollment in low-dose cancer screening. Electronically signed by: Olesya Luke M.D. 03/08/24 23:[address] 03/08/24 22:21 Exam(s): CT FACIAL Without Contrast EXAM: CT Maxillofacial Without Intravenous Contrast CLINICAL HISTORY: Reason for exam: syncope, fall, head/neck pain. TECHNIQUE: Axial computed tomography images of the face without intravenous contrast. CTDI is 66.02 mGy and DLP is 3006.22 mGy-cm. Automated exposure control was utilized for the study. A dose lowering technique was utilized adhering to the principles of ALARA. COMPARISON: No relevant prior studies available. FINDINGS: Bones/joints: No acute fracture. Soft tissues: Unremarkable. Orbits: Unremarkable. Sinuses: Unremarkable. No air-fluid levels. IMPRESSION: Normal maxillofacial CT. Electronically signed by: Nate Tenorio MD 03/09/24 03:[address] 03/08/24 22:21 Exam(s): CT HEAD Without Contrast EXAM: CT Head Without Intravenous Contrast CLINICAL HISTORY: Reason for exam: syncope, fall, head/neck pain. TECHNIQUE: Axial computed tomography images of the head/brain without intravenous contrast. CTDI is 66.02 mGy and DLP is 3006.22 mGy-cm. Automated exposure control was utilized for the study. A dose lowering technique was utilized adhering to the principles of ALARA. COMPARISON: 02/12/23 FINDINGS: Brain: Generalized parenchymal volume loss. Periventricular and deep cerebral white matter hypoattenuation suggesting chronic small vessel ischemic change. Lucero-white matter differentiation maintained. No hemorrhage, mass effect, parenchymal edema, or midline shift. Ventricles: Unremarkable. No hydrocephalus. Bones/joints: Unremarkable. No acute fracture. Soft tissues: Unremarkable. Vasculature: Intracranial atherosclerosis. Sinuses: Unremarkable as visualized. Mastoid air cells: Unremarkable as visualized. No mastoid effusion. Orbits: Bilateral lens replacements. IMPRESSION: No acute intracranial process. Electronically signed by: Olesya Luke M.D. 03/08/24 23:54 PM Cervical Spine MRI 03/10/24 16:19 MRI OF THE CERVICAL SPINE WITHOUT IV CONTRAST CLINICAL HISTORY: Neck pain. Recent fall. COMPARISON STUDY: CT of the cervical spine dated 03/08/2024. TECHNIQUE: MRI of the cervical spine was performed utilizing various T1 and T2- weighted sequences in the axial and sagittal planes. IV contrast was not administered for this examination. The examination is severely compromised by motion artifact. There is also susceptibility artifact from metallic spinal hardware. FINDINGS: Cervical spine: Vertebral body height and alignment is maintained throughout the cervical spine. There is no MRI evidence of acute fracture. The atlantodental articulation is maintained. The spinous processes appear intact. There is postsurgical change from anterior spinal fusion at C5-C7. Hardware at C7 has been removed. No destructive bony lesion is seen. Intervertebral discs: There has been discectomy at C5-C6 and C6-C7. Disc desiccation and minimal loss of height is seen at the remaining cervical levels. Spinal cord: The cervical cord is normal in morphology and signal intensity. C2-C3: A posterior disc osteophyte complex effaces the ventral subarachnoid space. Uncovertebral and facet arthropathy contribute to moderate right and mild left neural foraminal stenosis. C3-C4: A posterior disc osteophyte complex minimally effaces the ventral cord. There is a right lateral disc bulge. In conjunction with facet arthropathy, there is severe right neural foraminal stenosis with probable impingement on the exiting right C4 nerve root. Uncovertebral and facet arthropathy contribute to moderate neural foraminal stenosis on the left. C4-C5: A posterior disc osteophyte complex abuts the ventral cord. Uncovertebral and facet arthropathy contribute to moderate to severe right and greater than left neural foraminal stenosis. C5-C6: A posterior disc osteophyte complex effaces the ventral subarachnoid space. Uncovertebral and facet arthropathy contribute to moderate right and moderate to severe left neural foraminal stenosis. C6-C7: The central canal is clear. Lateral disc bulge is seen bilaterally, left greater than right. In conjunction with facet arthropathy, there is severe left and moderate to severe right neural foraminal stenosis. This may impinge in the exiting bilateral C7 nerve roots. C7-T1: Unremarkable. Soft tissues: The prevertebral and paraspinous soft tissues are normal in appearance. Brain parenchyma: The visualized brain parenchyma at the skull base is normal as imaged. IMPRESSION: 1. Severely motion compromised examination. 2. No acute bony abnormality is seen involving the cervical spine. 3. Postsurgical and spondylotic change as above. See discussion for detailed level by level analysis. 4. The cervical cord is normal in morphology and signal intensity. Dictated: 03/10/2024 1:15 PM Transcribed: 03/10/2024 1:37 PM Augusto [id number] PAUL_Nixon [id number] Electronically signed by: Scott Conn M.D. 03/10/2024 4:[address] 03/11/24 14:02 CT head/brain wo con CLINICAL HISTORY: 68 years-old Male with ff up, head trauma. Acute head trauma TECHNIQUE: Multiple axial CT images of the head were obtained without contrast. A dose lowering technique was utilized adhering to the principles of ALARA. CT DOSE: 625.8 mGy.cm COMPARISON: Head CT 03/08/2024 FINDINGS: No acute intracranial hemorrhage, midline shift, intracranial mass, hydrocephalus, territorial ischemia or abnormal extra-axial collection. Involutional changes with advanced chronic microvascular ischemic disease. Unchanged ventriculomegaly, likely secondary to the brain atrophy. The calvarium is intact. The paranasal sinuses, mastoid air cells, and middle ear cavities are clear. IMPRESSION: No acute intracranial abnormality or calvarial fracture. ACT 112: Negative or not required by law. The above report was generated using voice recognition software. It may contain grammatical, syntax or spelling errors. Electronically signed by: Nav Grossman M.D. 03/11/2024 2:42 PM Pending Results Patient Have Any Pending Studies at Discharge: No Discharge Instructions Given to Patient (Per Discharging Provider) MEDICATION CHANGES: Complete prednisone taper as follows * 40 mg daily for additional 1 days, starting 03/14/2024 * 30 mg daily for additional 2 days * 20 mg daily for additional 2 days * 10 mg daily for additional 2 days then stop Gabapentin 300 mg 3 times a day for nerve pain Oxycodone 5 mg every 6 hours as needed for severe pain Tizanidine 1 mg, take half a tablet every 8 hours as needed for muscle spasm. You are encouraged to utilize Tylenol 650 mg every 4 hours as needed for mild to moderate pain. You are encouraged to use [id number]-[id number] Miralax, take 17g with your choice of bevarage daily. Please continue all medications as prescribed. SUMMARY OF TEST RESULTS: You were admitted to hospital after episode of syncope "Passing out." It was felt to be secondary to blood pressure being on the lower side. You underwent an echocardiogram which revealed a normal ejection fraction of your heart. Your blood pressure was elevated during hospital stay and this was felt to be secondary to pain. You have severe neck pain after episode of syncope. You underwent a CT scan and MRI of the neck which showed your prior neck surgery. There was no evidence of spinal cord compression or bony vertebral injury. You were seen and evaluated by your orthopedic spine surgeon which felt that your symptoms are likely related to occipital neuralgia. You were seen and evaluated by pain management who did not recommend any procedures at this point. Your symptoms have improved to the point you can be discharged home with continued pain management. On day of discharge you are seen by physical therapy. PENDING TEST RESULTS: None RECOMMENDATIONS FOR FOLLOW-UP: Please follow-up with your primary care provider as scheduled. It is recommended you ice your neck 3-4 times a day allowing for 20 minutes on and 20 minutes off. Continue gentle active range of motion of the neck as instructed by inpatient physical therapy. It is recommended that you utilize [id number]-byu-[id number] Tylenol routinely for mild to moderate pain. You may utilize the oxycodone as needed for very severe pain. You were started on gabapentin 300 mg 3 times a day to help with, "nerve," pain. This medication has room to be increased, but this would be done by her primary care provider. You are also being prescribed tizanidine. This is a muscle relaxer and is recommended you utilize this if you feel that your neck muscles are stiff. If your symptoms still persist after 2 weeks please discuss with your primary care provider. It is recommended that you have a ZIO patch done as an outpatient to observe for any abnormal heart rhythms due to your passing out episode. Please keep a log of your blood pressures, twice daily, and take with your to your primary care provider. No Driving until you follow up with your Primary Care Provider. Also No Driving while using the medication oxycodone or tizanidine. OTHER INSTRUCTIONS: Seek medical attention if you have: * temperature above 101 * chest pain or trouble breathing * abdominal pain, nausea, vomiting * diarrhea, dark stools or bloody stools * any unanswered questions or concerns Call 911 if symptoms are severe. Please take good care of yourself. It has been a pleasure taking care of you. Please take care of yourself. If you have any questions regarding your recent hospitalization please contact [facility] and request [facility] [employer] @ [phone]. Total Time Total Time Spent Total Time Spent (In Minutes): 45 minutes Supervising Physician Co-Signing Physician Notes Attending Addendum: Case reviewed with the advanced practitioner. I have personally performed a history and physical examination on the patient. I have reviewed the advanced practitioner's documentation on the date of service referenced in note, and I agree with, and take responsibility for the plan of care. please refer to her notes for full details patient seen and examined, records reviewed by myself as well Ravi Miller MD
== END 2024-03-13 15:24 | disposition home or self-care (01) | DRG 312 ==
LOC: ED 22:04 → EDINP 22:04 → SUATTDRO 03-09 03:16 → 2N 03-09 16:37